=== PATIENT | female | born 1940 | race Caucasian/White ===

== ENCOUNTER 2016-08-23 17:59 | Emergency (ER) | payer MEDICARE, OTHER ==
[2016-08-23 18:06] VITALS: BP 158/97; PULSE 87; TEMP 98.1
--- NOTE | 2016-08-23 18:25 | PDOC ---
History of Present Illness - General Chief Complaint: Ear Problem Stated Complaint: EAR PROBLEM Time Seen by Provider: 08/23/16 18:15 History Source: Patient Exam Limitations: No Limitations - History of Present Illness Initial Comments: CHIEF COMPLAINT: 76 y/o afebrile female with PMH IDDM, HTN, HLD c/o sore throat and earache. HISTORY OF PRESENT ILLNESS: The patient states she's had a sore throat and dry cough for the past 4 days. Today, approximately 1 hour ago her eardrum "ruptured" and liquid and blood started coming out of her left ear. She denies fever, runny nose, n/v/d, CP, SOB, abd pain. She has been drinking lemon water and tea for her sore throat. Vital signs on arrival are within normal limits. REVIEW OF SYSTEMS: GENERAL/CONSTITUTIONAL: No fever/chills. No weakness. No weight change. HEAD, EYES, EARS, NOSE AND THROAT: No change in vision. +left ear pain with discharge. +sore throat MUSCULOSKELETAL: No joint or muscle swelling or pain. No neck or back pain. SKIN: No rash or easy bruising. NEUROLOGIC: No headache, vertigo, loss of consciousness, or loss of sensation. PHYSICAL EXAM: GENERAL: The patient is awake, alert, and fully oriented, in no acute distress. She is ambulatory with a cane, well appearing, in NAD or obvious discomfort. HEAD: Normal with no signs of trauma. No mastoid TTP b/l. ENT: Pupils equal, round and reactive to light, extraocular movements intact, sclera anicteric, conjunctiva clear. Mild posterior pharyngeal erythema without tonsilar edema or exudate. Uvula midline. No soft or hard palate deformities. Left TM is erythematous and perforated with minimal serosanguenous fluid in canal. Left canal normal. NEUROLOGICAL: Normal speech, normal gait. CN II-XII grossly intact. SKIN: Warm, dry, normal turgor, no rashes or lesions noted. Past History - Past Medical History Allergies/Adverse Reactions: Allergies Allergy/AdvReac Type Severity Reaction Status Date / Time No Known Allergies Allergy Verified 08/23/16 18:06 Home Medications: Ambulatory Orders Acetaminophen W/ Codeine #3 [Tylenol # 3] 1 combo PO Q4H PRN #14 tablet Aspirin [ASA -] 81 mg PO DAILY 10/30/11 Furosemide [Lasix -] 20 mg PO DAILY 10/30/11 Meloxicam [Mobic -] 7.5 mg PO PRN 10/30/11 Montelukast Na [Singulair] 10 mg PO DAILY 10/30/11 Rosuvastatin Calcium [Crestor] 10 mg PO DAILY 10/30/11 Albuterol Sulfate [Proair Hfa] 1 - 2 inh PO DAILY 12/12/11 Cholecalciferol (Vitamin D3) [Vitamin D] 5,000 unit PO DAILY 12/12/11 Ibuprofen/Diphenhydramine Cit [Advil Pm Caplet] 1 each PO PRN 12/12/11 Insulin Glargine,Hum.rec.anlog [Lantus] 10 unit SQ BID 12/12/11 Zolpidem Tartrate [Ambien] 10 mg PO HS 12/12/11 Cephalexin 250 mg PO ASDIR 08/23/16 Ofloxacin Otic [Floxin Otic -] 10 drop BID #280 drops 08/23/16 Diabetes: Yes (IDDM, 71 tonight -> po -> 111 here) HTN: Yes Hypercholesterolemia: Yes - Psycho/Social/Smoking Cessation Hx Anxiety: No Suicidal Ideation: No Smoking Status: No Smoking History: Never smoked Number of Cigarettes Smoked Daily: 0 Hx Alcohol Use: No Drug/Substance Use Hx: No Substance Use Type: None *Physical Exam - Vital Signs Last Vital Signs Temp Pulse Resp BP Pulse Ox 98.1 F 87 20 158/97 97 08/23/16 18:03 08/23/16 18:03 08/23/16 18:03 08/23/16 18:03 08/23/16 18:03 Medical Decision Making - Medical Decision Making A/P: 76 y/o female with left otitis media with perforation, along with sore throat. Plan is as follows: 1. Rapid strep Rapid strep - negative Will discharge to home with rx for ofloxacin ear drops. INstructed her to use as prescribed. INstructed her to gargle with warm salt water, take advil for pain and eat only cold/soft foods to help with sore throat. Instructed her to call Dr. Irby tomorrow to schedule a follow up appointment as soon as possible for her ear. Suggested she return to the ER immediately with any worsening or concerning symptoms. The patient verbalizes understanding of all instructions, has no further questions and is awaiting discharge. *DC/Admit/Observation/Transfer Diagnosis at time of Disposition: Sore throat Perforated eardrum Qualifiers: Laterality: left Qualified Code(s): H72.92 - Unspecified perforation of tympanic membrane, left ear - Discharge Dispostion Disposition: HOME Condition at time of disposition: Good - Prescriptions Prescriptions: Ofloxacin Otic [Floxin Otic -] 10 drop BID #280 drops - Referrals Referrals: Zaira Hernandez MD [Primary Care Provider] - James Irby MD [Staff Physician] - Call tomorrow - Patient Instructions Printed Discharge Instructions: DI for Tympanic Membrane Perforation-Adult, Sore Throat Additional Instructions: Discharge Instructions: -A prescription for antibiotic ear drops has been sent to your pharmacy; please take as prescribed -Gargle with warm salt water and take Advil for your sore throat. -Eat only soft and cold foods to help with your sore throat -Call Dr. Irby tomorrow to schedule an appointment for your ear -Return to the ER with any worsening or concerning symptoms Instrucciones de candy: -La receta para gotas para los odos de los antibiticos se coley enviado a major farmacia; Por favor tome linh prescrito -Gargar con agua tibia salada y sasha Advil para el dolor de garganta. - Coma slo comidas suaves y fras para ayudar con el dolor de garganta. - Llame al Dr. Irby para programar michle edi para major oreja -Vuelva a la brigida de emergencias con cualquier empeoramiento o sntomas relacionados Print Language: VIETNAMESE
== END 2016-08-23 19:29 | disposition home or self-care (01) ==
LOC: JERFT 17:59
DX: H72.92 Unspecified perforation of tympanic membrane, left ear (principal); I10 Essential (primary) hypertension; E11.9 Type 2 diabetes mellitus without complications; Z79.4 Long term (current) use of insulin; E78.00 Pure hypercholesterolemia, unspecified
CPT/HCPCS: 87070; 87430; 99281-25

== ENCOUNTER 2018-05-24 09:40 | Emergency (ER) | payer MEDICARE, OTHER ==
[2018-05-24 09:58] VITALS: BMI 25.7
--- NOTE | 2018-05-24 10:45 | PDOC ---
History of Present Illness - General Chief Complaint: Revisit, Lab Variance Stated Complaint: NOT FEELING WELL Time Seen by Provider: 05/24/18 10:25 History Source: Patient Exam Limitations: No Limitations, Language Barrier (phone rectification printer used) - History of Present Illness Initial Comments: 05/24/18 11:12 Patient is a 78F with history of DM, HTN, HLD, b/l DVT (on coumadin, last level 1 month ago) here today requesting INR level. Patient states that she hasn't had it done for the past month. Endorses minor pain in posterior legs bilaterally with increasing size of the left. Denies fevers, chills, nausea, vomiting. Denies chest pain, shortness of breath, abdominal pain. Endorses compliance with coumadin, but has other medications at bedside with no coumadin. Past History - Past Medical History Allergies/Adverse Reactions: Allergies Allergy/AdvReac Type Severity Reaction Status Date / Time No Known Allergies Allergy Verified 05/24/18 09:52 Home Medications: Ambulatory Orders Aspirin [ASA -] 81 mg PO DAILY 10/30/11 Montelukast Na [Singulair] 10 mg PO DAILY 10/30/11 Rosuvastatin Calcium [Crestor] 10 mg PO DAILY 10/30/11 Albuterol Sulfate [Proair Hfa] 1 - 2 inh PO DAILY 12/12/11 Insulin Glargine,Hum.rec.anlog [Lantus] 10 unit SQ BID 12/12/11 Ofloxacin Otic [Floxin Otic -] 10 drop BID #280 drops 08/23/16 Fluticasone Propionate [24 Hour Allergy] 1 inh NS DAILY 05/24/18 Losartan Potassium 50 mg PO DAILY 05/24/18 Metformin HCl [Glucophage] 1,000 mg PO BID 05/24/18 Warfarin Sodium [Coumadin] 7.5 mg PO HS 05/24/18 COPD: No Diabetes: Yes (IDDM, 71 tonight -> po -> 111 here) HTN: Yes Hypercholesterolemia: Yes - Immunization History Immunization Up to Date: Yes - Suicide/Smoking/Psychosocial Hx Smoking Status: No Smoking History: Never smoked Number of Cigarettes Smoked Daily: 0 Information on smoking cessation initiated: No Hx Alcohol Use: No Drug/Substance Use Hx: No Substance Use Type: None Review of Systems - Review of Systems Able to Perform ROS?: Yes Comments:: 05/24/18 11:22 GENERAL/CONSTITUTIONAL: No fever or chills. No weakness. HEAD, EYES, EARS, NOSE AND THROAT: No change in vision. No sore throat. CARDIOVASCULAR: No chest pain or shortness of breath RESPIRATORY: No cough, wheezing, or hemoptysis. GASTROINTESTINAL: No nausea, vomiting, diarrhea or constipation. GENITOURINARY: No dysuria, frequency, or change in urination. MUSCULOSKELETAL: +lower ext pain. No neck or back pain. SKIN: No rash NEUROLOGIC: No headache, vertigo, loss of consciousness, or change in strength/ sensation. ENDOCRINE: No increased thirst. No abnormal weight change HEMATOLOGIC/LYMPHATIC: No anemia, easy bleeding, or history of blood clots. ALLERGIC/IMMUNOLOGIC: No hives or skin allergy. *Physical Exam - Vital Signs Last Vital Signs Temp Pulse Resp BP Pulse Ox 97.9 F 75 17 140/75 97 05/24/18 09:52 05/24/18 09:52 05/24/18 09:52 05/24/18 09:52 05/24/18 10:18 - Physical Exam Comments: 05/24/18 11:29 GENERAL: Awake, alert, and fully oriented, in no acute distress HEAD: No signs of trauma, normocephalic, atraumatic EYES: PERRLA, EOMI, sclera anicteric, conjunctiva clear ENT: Auricles normal inspection, hearing grossly normal, nares patent, oropharynx clear without exudates. Moist mucosa NECK: Normal ROM, supple, no lymphadenopathy, JVD, or masses LUNGS: No distress, speaks full sentences, clear to auscultation bilaterally HEART: Regular rate and rhythm, normal S1 and S2, no murmurs, rubs or gallops, peripheral pulses normal and equal bilaterally. ABDOMEN: Soft, nontender, normoactive bowel sounds. No guarding, no rebound. No masses EXTREMITIES: B/L lower extremity swelling. No clubbing or cyanosis. NEUROLOGICAL: Cranial nerves II through XII grossly intact. Normal speech, normal gait, no focal sensorimotor deficits SKIN: Warm, Dry, normal turgor, no rashes or lesions noted. Moderate Sedation - Procedure Monitoring Vital Signs: Procedure Monitoring Vital Signs Temperature 97.9 F 05/24/18 09:52 Pulse Rate 75 05/24/18 09:52 Respiratory Rate 17 05/24/18 09:52 Blood Pressure 140/75 05/24/18 09:52 O2 Sat by Pulse Oximetry (%) 97 05/24/18 10:18 Medical Decision Making - Medical Decision Making 05/24/18 11:29 Patient is 78F with history of DVT (on coumadin, d/x 01/23/18) here today requesting INR level. Vitals normal and stable. INR ordered. INR shows no evidence of coumadin use. Will do US to confirm presence of DVT, likely start on DOAC. 05/24/18 13:48 US negative. Patient confirms she takes her coumadin every day. Dr Jensen office called, spoke with [employer] INTERN. Will see patient sunday. Since patient is unsure of what amount she is on, cannot change dose. Will discharge home, patient has follow up sunday. *DC/Admit/Observation/Transfer Diagnosis at time of Disposition: Leg swelling - Discharge Dispostion Disposition: HOME Condition at time of disposition: Good Decision to Admit order: No - Referrals Referrals: Gabrielle Jensen MD [Primary Care Provider] - - Patient Instructions Additional Instructions: Please follow up with your primary card doctor on Sunday as scheduled. Please return to the ED immediately if you have any new, worsening or concerning symptoms, especially chest pain, shortness of breath, and fever. Por favor talha un seguimiento con major mdico de la tarjeta primaria el segn lo programado. Regrese a la brigida de urgencias inmediatamente si tiene sntomas nuevos, que empeoran o estn relacionados con ellos, especialmente dolor en el pecho, falta de aliento y fiebre. - Post Discharge Activity
[2018-05-24 11:13] LABS: INR 0.97 (0.83-1.09); PROTHROMBIN TIME (PATIENT) 11.4 SEC (9.7-13.0)
--- NOTE | 2018-05-24 11:13 | PDOC ---
Attending Attestation - Resident Resident Name: ThaddeusperriSea - ED Attending Attestation I have performed the following: I have examined & evaluated the patient, The case was reviewed & discussed with the resident, I agree w/resident's findings & plan, Exceptions are as noted - HPI HPI: 05/24/18 11:10 78 F with h/o DM, HTN, HLD, BLE DVTs on coumadin, presenting to ED for INR check. Pt states that her last check was a month ago and was supratherapeutic. She states that over the past week, she has been having some mild bleeding when she brushes her teeth. Denies any bleeding currently. Denies bloody stool or dark tarry stool. no hematuria. Pt states that her swelling in her L leg has been persistent but not worsening. Denies CP/SOB. - Physicial Exam PE: 05/24/18 11:12 GENERAL: Awake, alert, and fully oriented, in no acute distress. HEAD: No signs of trauma EYES: PERRLA, EOMI, sclera anicteric, conjunctiva clear ENT: Auricles normal inspection, hearing grossly normal, nares patent, oropharynx clear without exudates. Moist mucosa NECK: Nontender, no stepoffs, Normal ROM, supple, no lymphadenopathy, JVD, or masses LUNGS: Breath sounds equal, clear to auscultation bilaterally. No wheezes, and no crackles HEART: Regular rate and rhythm, normal S1 and S2, no murmurs, rubs or gallops ABDOMEN: Soft, nontender, normoactive bowel sounds. No guarding, no rebound. No masses EXTREMITIES: + BLE edema, L>R NEUROLOGICAL: Cranial nerves II through XII intact. 5/5 strength and sensation in all extremities, Normal speech, normal gait, normal cerebellar function SKIN: Warm, Dry, normal turgor, no rashes or lesions noted. - Medical Decision Making 05/24/18 11:12 78 F with BLE DVTs on coumadin here for INR check. Endorses some bleeding gums with brushing teeth but no other bleeding. No clinical signs of active bleeding currently. HD stable. No signs of PE. - INR check 05/24/18 13:58 INR subtherapeutic However, repeat US today shows no evidence of DVT. Case discussed with pt's PMD, Dr. Jensen, who does not want pt's coumadin increased or any other AC started. She will f/u with pt on Sunday. Pt is well appearing, with normal vitals. Clinically stable for DC at this time. I discussed the physical exam findings, ancillary test results and final diagnoses with the patient. I answered all of the patient's questions. The patient was satisfied with the care received and felt comfortable with the discharge plan and treatment plan. The patient agrees to follow up with the primary care physician within 24-72 hours.
[2018-05-24 14:03] VITALS: BP 128/79; PULSE 78; TEMP 98.1
== END 2018-05-24 14:03 | disposition home or self-care (01) ==
LOC: JER 09:40
DX: M79.89 Other specified soft tissue disorders (principal); Z86.718 Personal history of other venous thrombosis and embolism; Z79.01 Long term (current) use of anticoagulants; I10 Essential (primary) hypertension; E78.00 Pure hypercholesterolemia, unspecified; E11.9 Type 2 diabetes mellitus without complications
CPT/HCPCS: 36415; 85610; 93970-TC; 99282-25

== ENCOUNTER 2018-09-14 21:35 | Emergency (ER) | payer MEDICARE, OTHER ==
[2018-09-14 21:45] VITALS: TEMP 97.7; BMI 27.6
[2018-09-14] MEDS ORDERED: ACETAMINOPHEN 500 MG TABLET (FP) PO ONE (22:16)
[2018-09-14] MEDS ORDERED: ACETAMINOPHEN 325 MG TABLET (FP) PO ONE (22:16)
[2018-09-14] MEDS ORDERED: ACETAMINOPHEN 325 MG TABLET (FP) ONE (22:24)
--- NOTE | 2018-09-14 22:31 | PDOC ---
History of Present Illness - General Chief Complaint: Pain, Acute Stated Complaint: FOOT PAIN Time Seen by Provider: 09/14/18 21:52 History Source: Patient Exam Limitations: No Limitations - History of Present Illness Initial Comments: 09/14/18 22:17 78YOF with h/o HTN, HLD, DM, CVA (residual right arm weakness), BLE DVTs (on coumadin), right ankle replacement, BLE neuropathy with decreased sensation, who presents 5 days s/p mechanical fall with worsening R>L ankle and foot pain. She notes having caught her left foot on an irregular edge and tripped, twisted her left ankle, and rolled her right ankle. She notes worsening pain especially to the right foot and ankle which has caused her to have more difficulty walking than normal. She usually uses a cane to ambulate. Past History - Past Medical History Allergies/Adverse Reactions: Allergies Allergy/AdvReac Type Severity Reaction Status Date / Time shellfish derived Allergy Verified 09/14/18 22:29 Shellfish Allergy Uncoded 08/26/18 11:57 Home Medications: Ambulatory Orders Aspirin [ASA -] 81 mg PO DAILY 10/30/11 Montelukast Na [Singulair] 10 mg PO DAILY 10/30/11 Rosuvastatin Calcium [Crestor] 10 mg PO DAILY 10/30/11 Albuterol Sulfate [Proair Hfa] 1 - 2 inh PO DAILY 12/12/11 Insulin Glargine,Hum.rec.anlog [Lantus] 10 unit SQ BID 12/12/11 Ofloxacin Otic [Floxin Otic -] 10 drop BID #280 drops 08/23/16 Fluticasone Propionate [24 Hour Allergy] 1 inh NS DAILY 05/24/18 Losartan Potassium 50 mg PO DAILY 05/24/18 Metformin HCl [Glucophage] 1,000 mg PO BID 05/24/18 Warfarin Sodium [Coumadin] 7.5 mg PO HS 05/24/18 CVA: Yes (May 2018) COPD: No Diabetes: Yes (IDDM, 71 tonight -> po -> 111 here) HTN: Yes Hypercholesterolemia: Yes - Immunization History Immunization Up to Date: Yes - Suicide/Smoking/Psychosocial Hx Smoking Status: No Smoking History: Unknown if ever smoked Number of Cigarettes Smoked Daily: 0 Information on smoking cessation initiated: No Hx Alcohol Use: No Drug/Substance Use Hx: No Substance Use Type: None Review of Systems - Review of Systems Able to Perform ROS?: Yes Comments:: 09/14/18 23:07 GEN: no fever, chills, malaise, generalized weakness, or weight change HEENT: no ear pain, sore throat, vision change, or eye pain CV: no chest pain, palpitations, lightheadedness, syncope, or edema RESP: no cough, wheezing, or SOB GI: no abdominal pain, nausea, vomiting, diarrhea, constipation, or white/black/ bloody stool : no dysuria, hematuria, incontinence, retention, bleeding, or discharge MSK: ankle pain/swelling/bruising, knee pain NEURO: no headache, seizure, vertigo, numbness, tingling, or focal weakness PSYCH: no substance use, no behavior change SKIN: no jaundice, no rash ROS otherwise negative except as noted in HPI *Physical Exam - Vital Signs Last Vital Signs Temp Pulse Resp BP Pulse Ox 97.7 F 60 20 130/58 L 95 09/14/18 21:41 09/14/18 21:41 09/14/18 21:41 09/14/18 21:41 09/14/18 21:41 - Physical Exam Comments: 09/14/18 23:08 GENERAL: nontoxic and well-appearing, pleasant and very talkative elderly Iranian-speaking female, A/Ox4, no distress at rest when sitting, answers questions appropriately HEENT: PERRLA, EOMI, moist mucous membranes NECK/BACK: no midline ttp, no spinal stepoff or deformity, no hematoma, full ROM , neck supple CARDIOVASCULAR: regular rate/rhythm, normal S1S2, no MGR, strong peripheral pulses, capillary refill <2 seconds, extremities wwp, no edema LUNGS/RESPIRATORY: no respiratory distress, CTAB GI/ABDOMEN: symmetric hugi-ox-ruoy, normoactive BS, soft, no ttp, no midline pulsatile masses : no CVA tenderness EXTREMITIES: initially right ankle wrapped in coban with ice pack, BLE 1+ pitting edema, right foot ecchymosis to dorsum of foot just proximal to 3rd and 4th digits, significant diffuse ttp to right foot and ankle with tenderness to compression of tib/fib, no ttp malleolar zone, no midfoot tenderness, no muscle atrophy, no acute deformity SKIN: warm and dry, no pallor, no jaundice, no rash, no bruising, no skin breakdown, no cuts, no lesions NEUROLOGICAL: GCS 15, CN II-XII grossly intact, 5/5 strength proximally and distally, no facial droop ED Treatment Course - RADIOLOGY Radiology Studies Ordered: Category Date Time Status ANKLE & FOOT-LEFT* [RAD] Stat Radiology 09/14/18 22:15 Ordered ANKLE & FOOT-RIGHT* [RAD] Stat Radiology 09/14/18 22:15 Ordered KNEE 3 POS-RIGHT [RAD] Stat Radiology 09/14/18 22:15 Ordered Medical Decision Making - Medical Decision Making 09/14/18 23:11 [id number] with prior right knee replacement p/w ankle pain/swelling worsening since an injury to the area from GLF 5 days ago. Initial Vital Signs Temp Pulse Resp BP Pulse Ox 97.7 F 60 20 130/58 L 95 09/14/18 21:41 09/14/18 21:41 09/14/18 21:41 09/14/18 21:41 09/14/18 21:41 Exam: ankle with significant swelling, pain in malleolar zone, tenderness edge of lateral and medial malleolus, inability to walk 4 steps for exam. DDX IBNLT: ankle sprain/strain, tendon or ligament rupture/tear, fracture, dislocation, contusion, blood vessel injury, nerve injury, etc. W/U ordered: ankle/foot XR BLE, right knee XR TX ordered: Tylenol Ankle/Foot/knee XR: STS but no obvious fracture or dislocation, otherwise nothing acute. DISCHARGE Patient placed in air splint on right ankle. Subsequently neurovascularly intact distally, good capillary refill. They are also instructed to use RICE therapy and OTC analgesics. Workup is not concerning for emergency-level pathology at this time. The Pt is appropriate for discharge with close outpatient follow up. They are comfortable with this plan and will follow up with their primary care provider in 1-3 days. Specific return precautions are discussed and they will come back to the ER if necessary. *DC/Admit/Observation/Transfer Diagnosis at time of Disposition: Fall from ground level Ankle injury Qualifiers: Encounter type: initial encounter Laterality: right Qualified Code(s): S99.911A - Unspecified injury of right ankle, initial encounter - Discharge Dispostion Disposition: HOME Condition at time of disposition: Stable Decision to Admit order: No - Referrals - Patient Instructions Printed Discharge Instructions: DI for Ankle Sprain Additional Instructions: You were seen in the ER for an ankle injury. We did an exam and x-rays, which showed no new concerning findings. We placed your foot and ankle in a splint which you can wear for comfort as you need it. You can bear weight on the ankle/ foot as tolerated (as your pain allows) and you can use your cane if needed. After our assessment, we do not believe you are having a medical emergency at this time, and we believe you are safe to go home. Use rice therapy (rest, ice, compression, elevation) and take Tylenol for the pain (1000 mg maximum, every 6 hours). We are giving you referral information for our orthopedist, so if you have continued symptoms in 1-2 weeks, please feel free to follow up with them. Please also follow up with your primary care provider in 1-3 days. Call their clinic as soon as possible, tell them you were seen in the er, and tell them you need an appointment. If you have any new or worsening symptoms, especially worsening or severe pain of the ankle/foot/toes, or numbness, tingling, weakness , redness, or paleness of the area, please come back to the ER at any time (24 hours a day). If you are having severe or life threatening symptoms, or symptoms that make it unsafe to drive or have someone drive you, please call 911. Te vieron en la brigida de emergencias por michel lesin en el tobillo. Hicimos un examen y radiografas, que no mostraron nuevos hallazgos concernientes. Colocamos el pie y el tobillo en michel frula que puede usar para major comodidad cuando la necesite. Puede soportar peso en el tobillo / pie segn lo tolere ( segn lo permita major dolor) y puede usar major bastn si es necesario. Despus de nuestra evaluacin, no creemos que tenga michel emergencia mdica en arsen momento, y creemos que puede irse a casa sin peligro. Use la terapia de arroz (reposo, hielo, compresin, elevacin) y tome Tylenol para el dolor (1000 mg mximo, cada 6 horas). Le estamos dando informacin de referencia para nuestro ortopedista, por lo que si contina con los sntomas en 1 o 2 semanas, sintase kalpesh de seguir con ellos. Por favor, ghulam talha un seguimiento con major proveedor de atencin primaria en 1-3 dowling. Llame a major clnica lo antes posible , dgales que lo vieron en la brigida de emergencias y que necesita michel edi. Si tiene algn sntoma nuevo o que empeora, especialmente empeoramiento o dolor ashlee del tobillo / pie / dedos, o entumecimiento, hormigueo, debilidad, enrojecimiento o palidez en el [place], por favor regrese a la brigida de emergencias en cualquier momento (24 horas a da). Si tiene sntomas graves o potencialmente mortales, o sntomas que hacen que no sea seguro conducir o que alguien lo lleve, llame al 911. - Post Discharge Activity
[2018-09-14] MEDS ORDERED: SODIUM CHLORIDE 0.9% 500 ML INFUS.BAG IV ONE (22:34)
[2018-09-15 00:05] VITALS: BP 135/63; PULSE 64
== END 2018-09-15 00:05 | disposition home or self-care (01) ==
LOC: JER 21:35
DX: S99.811A Other specified injuries of right ankle, initial encounter (principal); I10 Essential (primary) hypertension; E78.5 Hyperlipidemia, unspecified; E11.9 Type 2 diabetes mellitus without complications; Z79.4 Long term (current) use of insulin; Z96.651 Presence of right artificial knee joint; I69.831 Monoplegia of upper limb following other cerebrovascular disease affecting right dominant side; Z87.898 Personal history of other specified conditions; Z86.718 Personal history of other venous thrombosis and embolism; Z79.01 Long term (current) use of anticoagulants
CPT/HCPCS: 73562-TC-RT-FY; 73610-TC-LT-FY; 73610-TC-RT-FY; 73630-TC-LT; 73630-TC-RT-FY; 99282-25

== ENCOUNTER 2019-03-04 13:40 | Inpatient (IN) | payer MEDICARE, OTHER ==
--- NOTE | 2019-03-04 14:32 | PDOC ---
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 Initially, reported the symptoms started three days ago after receiving a Toradol shot for a headache at her PCPs office. Then clarified that she had experienced similar symptoms chronically since her stroke in May. Her neurologist has not been able to control the symptoms. The pt then reports she developed right sided anterior chest wall pain when she arrived at the hospital. It is worse when she touches the area. Does not change with movement of the right arm. Denies trauma to the area. Pt has a h/o diabetes managed with Levemir and Metformin. Has not taken the insulin in the past three days because her doctor did not tell her to continue using it after the office visit. Medical Hx: - HTN - HLD - DM - CVA (residual right arm weakness) - BLE DVTs (on Eliquis) - S/p R ankle replacement - BLE neuropathy with decreased sensation Review of Systems: In addition to that documented in the HPI above, the additional ROS was obtained : Constitutional- Denies fevers or chills Head- Denies vision changes ENMT- Denies sore throat CV- Per HPI Resp- Denies SOB GI- Denies abdominal pain, vomiting, or diarrhea - Denies painful urination, increased urinary frequency, or hematuria MSK- Denies recent trauma Skin- Denies new rashes Neuro- Denies new numbness or tingling or weakness Endocrine- Denies polyuria Heme- Denies bleeding or bruising Physical Examination: Vital signs and nursing notes reviewed. Constitutional- Well-developed, well-nourished adult female in no acute distress or obvious discomfort. Initially found standing in the hospital hallway. Ambulated to stretcher with aide of her home cane. Head- Normocephalic. No obvious external signs of trauma. Cardiovascular / Chest- Regular rate and regular rhythm. No murmur, rubs, clicks , or gallops. Peripheral pulses- radial pulses full. Trace pretibial edema bilaterally. Point tenderness to right anterior chest wall - no overlying bruising, no obvious bony deformity, no change with abduction of right arm. Respiratory- Breathing unlabored. Speaking in multi-word responses without pausing. Equal chest rise and fall. Clear to auscultation bilaterally. No stridor, no wheezing, no rhonchi. Gastrointestinal- abdomen is soft, non-tender, non-distended. Neuro- Alert and oriented x4. Moving all four extremities spontaneously. Left hand episodically tremulous, unclear if the pt is voluntarily moving the arm secondary to pain or the movements are involuntarily. Skin- Warm, dry, and intact. Psych- Affect- appropriate. Mood- normal. Speech was non-labored, non- pressured. MDM: *Reviewed nursing notes and and prior visit documentation (if available). 78 y/o female presenting with chronic left arm pain and tremors and reproducible , non-radiating right sided anterior chest wall pain. Afebrile. Vitals unremarkable for hypotension or tachycardia. Physical exam as described above. EKG unremarkable for ischemic findings. Troponin not elevated. Low suspicion for ACS, but will obtain repeat EKG and troponin to trend. CMP revealed Hyperglycemia with elevated beta-hydroxybutyrate without acidosis. Suspect secondary to several days of insulin non-adherence. Received SQ dose of regular insulin. Ordered IVFB and repeat insulin dose to be given with dinner. 04 Mar 2019 19:16 PM Telephone discussion with resident Dr. Kwan. Verbally appraised of the pts HPI, ED course, and current plan of management. Pt to be admitted to telemetry for attending Dr. Bae. Repeat EKG and troponin pending. Clay Hartley M.D., PGY2 Emergency Medicine Resident Past History - Past Medical History Allergies/Adverse Reactions: Allergies Allergy/AdvReac Type Severity Reaction Status Date / Time shellfish derived Allergy Verified 03/04/19 13:45 Shellfish Allergy Uncoded 03/04/19 13:45 Home Medications: Ambulatory Orders Aspirin [ASA -] 81 mg PO DAILY 10/30/11 Montelukast Na [Singulair] 10 mg PO DAILY 10/30/11 Rosuvastatin Calcium [Crestor] 10 mg PO DAILY 10/30/11 Albuterol Sulfate [Proair Hfa] 1 - 2 inh PO DAILY 12/12/11 Insulin Glargine,Hum.rec.anlog [Lantus] 10 unit SQ BID 12/12/11 Ofloxacin Otic [Floxin Otic -] 10 drop BID #280 drops 08/23/16 Fluticasone Propionate [24 Hour Allergy] 1 inh NS DAILY 05/24/18 Losartan Potassium 50 mg PO DAILY 05/24/18 Metformin HCl [Glucophage] 1,000 mg PO BID 05/24/18 Warfarin Sodium [Coumadin] 7.5 mg PO HS 05/24/18 CVA: Yes (May 2018) COPD: No Diabetes: Yes (IDDM, 71 tonight -> po -> 111 here) HTN: Yes Hypercholesterolemia: Yes - Immunization History Immunization Up to Date: Yes - Psycho Social/Smoking Cessation Hx Smoking Status: No Smoking History: Never smoked Have you smoked in the past 12 months: No Number of Cigarettes Smoked Daily: 0 Hx Alcohol Use: No Drug/Substance Use Hx: No Substance Use Type: None *Physical Exam - Vital Signs Last Vital Signs Temp Pulse Resp BP Pulse Ox 98.6 F 68 16 120/58 L 99 03/04/19 13:46 03/04/19 13:46 03/04/19 13:46 03/04/19 13:46 03/04/19 13:46 ED Treatment Course - LABORATORY CBC & Chemistry Diagram: 03/04/19 14:24 03/04/19 14:24 - RADIOLOGY Radiology Studies Ordered: Category Date Time Status CHEST PA & LAT [RAD] Stat Radiology 03/04/19 14:19 Ordered Discharge - Discharge Information Problems reviewed: Yes Clinical Impression/Diagnosis: Hyperglycemia, Elevated beta-hydroxybutyrate, Right-sided chest pain Condition: Stable - Admission Yes - Follow up/Referral - Patient Discharge Instructions - Post Discharge Activity
[2019-03-04 14:42] LABS: BASO % 0.8 % (0-2.0); EOS % 1.1 % (0-4.5); HEMATOCRIT 38.3 % (32.4-45.2); HEMOGLOBIN 12.6 GM/dL (10.7-15.3); MCHC 32.9 g/dl (32.0-36.0); MEAN CELL VOLUME 91.1 fl (80-96); MEAN PLT VOLUME 10.3 fl (7.5-11.1); MONO % 7.7 % (3.8-10.2); NEUT % 64.4 % (42.8-82.8); PLATELET COUNT 173 K/MM3 (134-434); RBC 4.21 M/mm3 (3.60-5.2); RDW 13.2 % (11.6-15.6); WHITE BLOOD COUNT 4.5 K/mm3 (4.0-10.0)
[2019-03-04 14:54] LABS: INR 0.92 (0.83-1.09); PROTHROMBIN TIME (PATIENT) 10.9 SEC (9.7-13.0)
[2019-03-04 15:29] LABS: ALBUMIN 3.9 g/dl (3.4-5.0); ALK PHOS 80 U/L (45-117); ANION GAP 9 MMOL/L (8-16); BILIRUBIN,TOTAL 0.3 mg/dL (0.2-1); CALCIUM 9.8 mg/dL (8.5-10.1); CHLORIDE 95 mmol/L (98-107); CO2 27 mmol/L (21-32); CREATININE 1.4 mg/dL (0.55-1.3); MAGNESIUM 2.2 mg/dL (1.8-2.4); PHOSPHOROUS 4.2 mg/dL (2.5-4.9); POTASSIUM 5.1 mmol/L (3.5-5.1); SGOT/AST 12 U/L (15-37); SGPT/ALT 23 U/L (13-61); SODIUM 131 mmol/L (136-145); TOT PROT 6.9 g/dl (6.4-8.2)
[2019-03-04 15:44] LABS: GLUCOSE,RANDOM 538 mg/dL (74-106)
--- NOTE | 2019-03-04 15:45 | PDOC ---
Attending Attestation - Resident Resident Name: HartleyClay - ED Attending Attestation I have performed the following: I have examined & evaluated the patient, The case was reviewed & discussed with the resident, I agree w/resident's findings & plan - HPI HPI: 03/04/19 15:50 78YOF with h/o HTN, HLD, DM, CVA (residual right arm weakness), BLE DVTs (on eliquis), right ankle replacement, BLE neuropathy with decreased sensation presenting with left arm pain, tremors x several days, right chest pain. Initially, reported the symptoms started three days ago after receiving a Toradol shot for a headache at her PCPs office. Then clarified that she had experienced similar symptoms chronically since her stroke in May. Her neurologist has not been able to control the symptoms. The pt then reports she developed right sided anterior chest wall pain when she arrived at the hospital. It is worse when she touches the area. Does not change with movement of the right arm. Denies trauma to the area. Pt has a h/o diabetes managed with Levemir and Metformin. Has not taken the insulin in the past three days because her doctor did not tell her to continue using it after the office visit. 03/04/19 18:49 - Physicial Exam PE: 03/04/19 15:45 Agree with the resident's HPI and PE as documented in the electronic medical record. NAD, well appearing, EOMI, PERRL, nl conjunctiva, anicteric; neck supple. lungs clear, RRR, no murmur, +right chest wall TTP, abdomen soft nontender. no rebound, guarding. Back nontender. LOUIS x4, FROM, no focal neuro deficits. speech clear. No peripheral edema. normal color for ethnicity, WWP. no calf tenderness. 03/04/19 16:43 03/04/19 18:49 - Medical Decision Making 03/04/19 15:45 Vital Signs Temp Pulse Resp BP Pulse Ox 98.6 F 68 16 120/58 L 99 03/04/19 13:46 03/04/19 13:46 03/04/19 13:46 03/04/19 13:46 03/04/19 13:46 Vital signs reviewed within normal limits differential diagnosis includes ACS, arrhythmia, anemia, electrolyte/metabolic derangements, HHS, DKA, poor diabetic control, MSK pain Laboratory results with normal CBC, creatinine at baseline at 1.4, troponin negative, EKG is sinus rhythm and unremarkable, also atypical chest pain on the right side and reproducible. Initial glucose elevated greater than 500 with elevated beta hydroxybutyrate. However there is no evidence of gap acidosis at this time, this could be early process with her poorly controlled diabetes and has not been taking her insulin for 3 days. We will give subQ injection x1 dose now, IV fluid hydration and admit for hyperglycemia with evidence of early/ mild ketosis, needs diabetic teaching as pt not compliant and presenting with hyperglycemia/ketosis. 03/04/19 18:51 Heart Score/ECG Review #1 ECG reviewed & interpreted by me at: 13:55 General ECG Interpretation: Sinus Rhythm, Normal Rate, Normal Intervals Compared to previous ECG there are: No significant change 03/04/19 15:48 EKG normal sinus rhythm 67 bpm, no interval abnormalities, narrow QRS, ST and T wave segments and morphology normal. Nonspecific T wave abnormalities
[2019-03-04] MEDS ORDERED: INSULIN REGULAR HUMAN 100 UNITS/ML *VIAL IVPUSH ONE (15:51)
[2019-03-04] MEDS ORDERED: LACTATED RINGERS SOLUTION 1000 ML INFUS.BAG IV ONE (16:43)
[2019-03-04] MEDS ORDERED: ACETAMINOPHEN 325 MG TABLET (FP) PO ONE (17:53)
[2019-03-04] MEDS ORDERED: INSULIN (NOVOLOG) ASPART 100 UNITS/ML 10ML VIAL SQ ONE (17:55)
--- NOTE | 2019-03-04 20:42 | HP ---
CHIEF COMPLAINT: tremor/tingling and headache PCP: Dr Sparks HISTORY OF PRESENT ILLNESS: 78 yo honduran speaking and poor history female with a history of HTN, HLD, uncontrolled DM with peripheral neuropathy, CVA with residual left sided weakness, bilateral LE DVT (on eliquis), and seizures presenting to the ED complaining of left UE tingling and tremors, headache starting " 3 days ago". Initially, reported the symptoms started three days ago after receiving a Toradol shot for a headache at her PCPs office. Then clarified that she had experienced similar symptoms chronically since her stroke in May. According to her daughter, her neurologist has not been able to control the symptoms nor has been able to offer an explanation for her symptoms. On arrival to the ED, pt also complained of right sided chest pain that is non radiating, reproducible and not associated with SOB or exertion. Patient endorses recent fevers that started with her headache, confusion and states she has new onset hand clumsiness. denied any fever, chills, SOB, or urinary symptoms. According to the daughter, since early may, pt has been having memory problem , unable to dress or perform some of her daily activities. At the time, Pt was taken to [facility] in [place] where she was told to have seizures and place on keppra. They also performed an MRI at the time with suspicious finding of swelling. An LP was done at some point later which was negative. Per daughter, pt has not been taking her medications specifically at night and has been non adherent for a long time. She has not taken the insulin in the past three days because her doctor did not tell her to continue using it after the office visit. An Aid assigned only for 4 hours a day 7d/wk is able to give her her morning regimen only. Daughter has been to court in order to get an aid for more house but has been denied. She had previously discussed with her mother about assisted living or snf but pt has declined on multiple occasion. HEAVY DRINKER IN THE PAST ER course was notable for: (1) CBC unremarkable, CMP with pseudohyponatremia, cr 1.4 ( 1.1 in 2011), BG 538 and down to 382 from ED intervention with novolin, trops neg x2 (2) PT 10.9, INR 0.92 (3)1L LR bolus, tylenol, CXR no acute pathology Recent Travel: none PAST MEDICAL HISTORY: as described above PAST SURGICAL HISTORY: knee replacement Social History: per daughter Smoking: none smoker Alcohol: prior history of heavy drinking. per daughter she continues to drink but not as heavy as before. Drugs: Allergies shellfish derived Allergy (Verified 03/04/19 13:45) Shellfish Allergy (Uncoded 03/04/19 13:45) HOME MEDICATIONS: Home Medications Medication Instructions Recorded Aspirin [ASA -] 81 mg PO DAILY 10/30/11 Montelukast Na [Singulair] 10 mg PO DAILY 10/30/11 Rosuvastatin Calcium [Crestor] 10 mg PO DAILY 10/30/11 Albuterol Sulfate [Proair Hfa] 1 - 2 inh PO DAILY 12/12/11 Insulin Glargine,Hum.rec.anlog 10 unit SQ BID 12/12/11 [Lantus] Ofloxacin Otic [Floxin Otic -] 10 drop BID #280 drops 08/23/16 Fluticasone Propionate [24 Hour 1 inh NS DAILY 05/24/18 Allergy] Losartan Potassium 50 mg PO DAILY 05/24/18 Metformin HCl [Glucophage] 1,000 mg PO BID 05/24/18 Warfarin Sodium [Coumadin] 7.5 mg PO HS 05/24/18 Apixaban [Eliquis] 03/04/19 REVIEW OF SYSTEMS CONSTITUTIONAL: subjective fever Absent: chills, diaphoresis, generalized weakness, malaise, loss of appetite, weight change HEENT: Absent: rhinorrhea, nasal congestion, throat pain, throat swelling, difficulty swallowing, mouth swelling, ear pain, eye pain, visual changes CARDIOVASCULAR: chest pain Absent: syncope, palpitations, irregular heart rate, lightheadedness, peripheral edema RESPIRATORY: Absent: cough, shortness of breath, dyspnea with exertion, orthopnea, wheezing, stridor, hemoptysis GASTROINTESTINAL: Absent: abdominal pain, abdominal distension, nausea, vomiting, diarrhea, constipation, melena, hematochezia GENITOURINARY: Absent: dysuria, frequency, urgency, hesitancy, hematuria, flank pain, genital pain MUSCULOSKELETAL: Absent: myalgia, arthralgia, joint swelling, back pain, neck pain SKIN: Absent: rash, itching, pallor HEMATOLOGIC/IMMUNOLOGIC: Absent: easy bleeding, easy bruising, lymphadenopathy, frequent infections ENDOCRINE: Absent: unexplained weight gain, unexplained weight loss, heat intolerance, cold intolerance NEUROLOGIC: Absent: headache, focal weakness or paresthesias, dizziness, unsteady gait, seizure, mental status changes, bladder or bowel incontinence PSYCHIATRIC: Absent: anxiety, depression, suicidal or homicidal ideation, hallucinations. PHYSICAL EXAMINATION Vital Signs - 24 hr 03/04/19 03/04/19 03/04/19 13:45 13:46 19:57 Temperature 98.6 F 98.6 F Pulse Rate 68 Pulse Rate [ 85 Apical] Respiratory 16 20 Rate Blood Pressure 120/58 L Blood Pressure 133/79 [Left Arm] O2 Sat by Pulse 98 99 99 Oximetry (%) GENERAL: Awake, alert, and AOx2, anxious HEAD: Normal with no signs of trauma. EYES: Pupils equal, round and reactive to light, extraocular movements intact, sclera anicteric, conjunctiva clear. No lid lag. EARS, NOSE, THROAT: oropharynx clear without exudates. Moist mucous membranes. NECK: Normal range of motion, supple without JVD, or masses. LUNGS: Breath sounds equal, clear to auscultation bilaterally. No wheezes, and no crackles. No accessory muscle use. HEART: Regular rate and rhythm, normal S1 and S2 without murmur, rub or gallop. ABDOMEN: Soft, nontender, not distended, normoactive bowel sounds, no guarding, no rebound, no masses. No hepatomegaly or splenomegaly. MUSCULOSKELETAL: Normal range of motion at all joints. No bony deformities or tenderness. No CVA tenderness. UPPER EXTREMITIES: 2+ pulses, warm, well-perfused. No cyanosis. No clubbing. No peripheral edema. LOWER EXTREMITIES: 2+ pulses, warm, well-perfused. No calf tenderness. 1+ edema NEUROLOGICAL: Cranial nerves II-XII intact. Normal speech. Normal gait. normal sensation globally, 5/5 strength globally except for LUE which was 3/5. PSYCHIATRIC: Cooperative. Good eye contact. Appropriate mood and affect. SKIN: Warm, dry, normal turgor, no rashes or lesions noted, normal capillary refill. Laboratory Results - last 24 hr 03/04/19 03/04/19 03/04/19 14:24 14:24 14:24 WBC 4.5 RBC 4.21 Hgb 12.6 Hct 38.3 MCV 91.1 MCH 30.0 MCHC 32.9 RDW 13.2 Plt Count 173 MPV 10.3 D Absolute Neuts (auto) 2.9 Neutrophils % 64.4 Lymphocytes % 26.0 Monocytes % 7.7 Eosinophils % 1.1 Basophils % 0.8 Nucleated RBC % 0 PT with INR 10.90 INR 0.92 Sodium 131 L Potassium 5.1 Chloride 95 L Carbon Dioxide 27 Anion Gap 9 BUN 27.0 H Creatinine 1.4 H Est GFR (CKD-EPI)AfAm 42.19 Est GFR (CKD-EPI)NonAf 36.41 POC Glucometer Random Glucose 538 H* Calcium 9.8 Phosphorus 4.2 Magnesium 2.2 Total Bilirubin 0.3 AST 12 L ALT 23 Alkaline Phosphatase 80 Creatine Kinase 58 Troponin I < 0.02 Total Protein 6.9 Albumin 3.9 Beta-Hydroxybutyrate 11.8 H 03/04/19 03/04/19 17:37 19:13 WBC RBC Hgb Hct MCV MCH MCHC RDW Plt Count MPV Absolute Neuts (auto) Neutrophils % Lymphocytes % Monocytes % Eosinophils % Basophils % Nucleated RBC % PT with INR INR Sodium Potassium Chloride Carbon Dioxide Anion Gap BUN Creatinine Est GFR (CKD-EPI)AfAm Est GFR (CKD-EPI)NonAf POC Glucometer 382 Random Glucose Calcium Phosphorus Magnesium Total Bilirubin AST ALT Alkaline Phosphatase Creatine Kinase Troponin I < 0.02 Total Protein Albumin Beta-Hydroxybutyrate ASSESSMENT/PLAN: 78 yo honduran speaking and poor history female with a history of HTN, HLD, uncontrolled DM with peripheral neuropathy, CVA with residual left sided weakness, bilateral LE DVT (on eliquis), and seizures presenting to the ED complaining of left UE tingling and tremors, headache starting " 3 days ago" and new onset r sided chest pain admitted for uncontrolled diabetes Uncontrolled diabetes 2/2 non adherance to medications no dka no Anion Gap BG on admission 538 now 382 then to 253 BGM ISS starting with levemir 5u daily A1c ordered VINNY inhibitor for renal protection CHRISTOPH cr 1.4 most likely due to fluid loss from high BG. most likely prerenal cont NS @83 cc/hr Avoid nephrotoxins I's and O's and daily weights LUE tingling with tremors and headache head CT done with no acute finding but with evidence of slight ventricular dilation and brain involutional changes noted PT ordered Fall precautions and bedrest Chest pain unlikely cardiac as it is reproducible and right sided trop neg x2 ekg NSR at [address] changes HTN resume home meds once med rec Seizure disorder cont keppra 500 BID History of DVT cont eliquis 2.5 once med rec PT/INR 10.9 / 0.92 social work for living assistance dispo-med surge Visit type - Emergency Visit Emergency Visit: Yes ED Registration Date: 03/04/19 Care time: The patient presented to the Emergency Department on the above date and was hospitalized for further evaluation of their emergent condition. - New Patient This patient is new to me today: Yes Date on this admission: 03/05/19 - Critical Care Critical Care patient: No ATTENDING PHYSICIAN STATEMENT I saw and evaluated the patient. I reviewed the resident's note and discussed the case with the resident. I agree with the resident's findings and plan as documented. SUBJECTIVE: OBJECTIVE: ASSESSMENT AND PLAN:
--- NOTE | 2019-03-04 22:05 | PN ---
Teaching Attending Note Name of Resident: Sujey Kwan ATTENDING PHYSICIAN STATEMENT I saw and evaluated the patient. I reviewed the resident's note and discussed the case with the resident. I agree with the resident's findings and plan as documented. SUBJECTIVE: 8YOF with h/o HTN, HLD, DM, CVA (residual right arm weakness), BLE DVTs (on eliquis), Seizure disorder on Keppra, right ankle replacement, BLE neuropathy with decreased sensation presenting with left arm pain, tremors x several days, right chest pain, Found to have severe hyperglycemia in the emergency room. Pt has a h/o diabetes managed with Levemir and Metformin. Has not taken the insulin in the past three days because her doctor did not tell her to continue using it after the office visit. OBJECTIVE: Last Vital Signs Temp Pulse Resp BP Pulse Ox 98.1 F 81 20 136/85 99 03/05/19 00:01 03/05/19 00:01 03/05/19 00:01 03/05/19 00:01 03/04/19 19:57 GENERAL: Well developed, well nourished. Awake and alert. No acute distress. HEENT: Normocephalic, atraumatic. PERRLA, EOMI. No conjunctival pallor. Sclera are non- icteric. Moist mucous membranes. Oropharynx is clear. NECK: Supple. Full ROM. No JVD. Carotid pulses 2+ and symmetric, without bruits. No thyromegaly. No lymphadenopathy. CARDIOVASCULAR: Regular rate and rhythm. No murmurs, rubs, or gallops. Distal pulses are 2+ and symmetric. PULMONARY: No evidence of respiratory distress. Lungs clear to auscultation bilaterally. No wheezing, rales or rhonchi. ABDOMINAL: Soft. Non-tender. Non-distended. No rebound or guarding. No organomegaly. Normoactive bowel sounds. MUSCULOSKELETAL Normal range of motion at all joints. No bony deformities or tenderness. No CVA tenderness. EXTREMITIES: No cyanosis. No clubbing. No edema. No calf tenderness. SKIN: Warm and dry. Normal capillary refill. No rashes. No jaundice. PSYCHIATRIC: Cooperative. Good eye contact. Appropriate mood and affect. Abnormal Lab Results 03/04/19 03/04/19 14:24 22:35 Sodium 131 L Chloride 95 L BUN 27.0 H Creatinine 1.4 H Random Glucose 538 H* AST 12 L Beta-Hydroxybutyrate 11.8 H Urine Glucose (UA) 3+ H Imaging studies reviewed Imaging studies were reviewed Head CT negative for any acute intracranial pathology Chest x-ray was clear ASSESSMENT AND PLAN: 78-year-old woman with severe hyperglycemia, likely secondary to medication noncompliance with no anion gap and do not suspect DKA at this time although beta hydroxybutyrate was significantly elevated. Patient was complaining of some right-sided chest pain upon initial presentation however she had 2- troponins in the emergency room so ACS is ruled out at this time.Pseudohyponatremia likely secondary to severe hyperglycemia, CHRISTOPH, suspect prerenal azotemia. [facility] as patient is fluid depleted intravascularly and has an CHRISTOPH Tight NovoLog sliding scale A1c Diabetic diet Basal insulin Aspirin Statin VINNY inhibitor for renal protection Fall precautions and bedrest Physical therapy evaluation Avoid nephrotoxins I's and O's and daily weights #History of bilateral DVTs Continue with home dose Eliquis #Seizure disorder Continue with home dose Keppra
[2019-03-04] MEDS: INSULIN SLIDING SCALE (NOVOLOG) 1 VIAL SQ SCH (22:13)
[2019-03-04 22:48] LABS: EPI CELLS 1.3 /HPF (0-5/HPF); HYALINE CASTS 1 /lpf (0-8); URINE APPEARANCE CLEAR; URINE BACTERIA 9.5 /hpf (NEGATIVE); URINE BILIRUBIN NEGATIVE (NEGATIVE); URINE COLOR YELLOW; URINE GLUCOSE (UA) 3+ (NEGATIVE); URINE KETONE NEGATIVE (NEGATIVE); URINE LEUK ESTERASE TRACE (NEGATIVE); URINE NITRITE NEGATIVE (NEGATIVE); URINE PROTEIN NEGATIVE (NEGATIVE); URINE RBC 0 /hpf (0-4); URINE UROBILINOGEN 0.2 mg/dL (0.2-1.0); URINE WBC 4 /hpf (0-5)
[2019-03-04] MEDS ORDERED: ACETAMINOPHEN 325 MG TABLET (FP) PO PRN (23:50)
[2019-03-05] MEDS ORDERED: SODIUM CHLORIDE 1,000 ML IV SCH (02:30)
[2019-03-05] MEDS ORDERED: MELATONIN 5 MG TABLETS PO PRN (02:33)
[2019-03-05] MEDS: INSULIN (LEVEMIR) 100 UNITS/ML UNITS SQ SCH (06:33)
[2019-03-05] MEDS: INSULIN SLIDING SCALE (NOVOLOG) 1 VIAL SQ SCH ×4 (06:34→21:29)
[2019-03-05 08:31] LABS: BASO % 0.8 % (0-2.0); EOS % 3.6 % (0-4.5); HEMATOCRIT 34.7 % (32.4-45.2); HEMOGLOBIN 11.6 GM/dL (10.7-15.3); LYMPH % 34.7 % (8-40); MCHC 33.6 g/dl (32.0-36.0); MEAN CELL VOLUME 89.3 fl (80-96); MEAN PLT VOLUME 9.5 fl (7.5-11.1); MONO % 8.3 % (3.8-10.2); NEUT % 52.6 % (42.8-82.8); PLATELET COUNT 179 K/MM3 (134-434); RBC 3.88 M/mm3 (3.60-5.2); WHITE BLOOD COUNT 4.7 K/mm3 (4.0-10.0)
[2019-03-05 09:04] LABS: ALBUMIN 3.5 g/dl (3.4-5.0); BILIRUBIN,TOTAL 0.5 mg/dL (0.2-1); BLOOD UREA NITROGEN 19.2 mg/dL (7-18); CALCIUM 9.1 mg/dL (8.5-10.1); MAGNESIUM 1.9 mg/dL (1.8-2.4); PHOSPHOROUS 3.3 mg/dL (2.5-4.9); POTASSIUM 4.1 mmol/L (3.5-5.1); TOT PROT 5.9 g/dl (6.4-8.2)
--- NOTE | 2019-03-05 12:44 | EKG ---
Test Reason : Blood Pressure : / mmHG Vent. Rate : 067 BPM Atrial Rate : 067 BPM P-R Int : 180 ms QRS Dur : 076 ms QT Int : 388 ms P-R-T Axes : 054 059 054 degrees QTc Int : 409 ms POOR DATA QUALITY, INTERPRETATION MAY BE ADVERSELY AFFECTED NORMAL SINUS RHYTHM NORMAL ECG WHEN COMPARED WITH ECG OF 12-DEC-2011 03:10, NO SIGNIFICANT CHANGE WAS FOUND Confirmed by MISA BANSAL, DYLON ([id number]) on 03/05/2019 12:43:50 PM Referred By: Confirmed By:DYLON BYNUM MD
[2019-03-05 13:02] VITALS: BMI 24.7
--- NOTE | 2019-03-05 13:32 | ECHO ---
Name: VENESSA BENIGNA Exam:Adult Echocardiogram Study Date: 03/05/2019 10:44 AM Age: 78 yrs Reason For Study: HTN Height: 66 in Weight: 153 lb BSA: 1.8 m2 MMode/2D Measurements & Calculations IVSd: 0.96 cm Ao root diam: 2.4 cm LVIDd: 3.4 cm LA dimension: 2.6 cm LVIDs: 2.1 cm LVPWd: 0.83 cm EDV(Teich): 46.8 ml LVOT diam: 2.0 cm ESV(Teich): 14.8 ml LAV (MOD-bp): 36.0 ml Doppler Measurements & Calculations MV E max iain: 48.5 cm/sec Ao V2 max: 135.7 cm/sec MV A max iain: 88.3 cm/sec Ao max P.4 mmHg MV E/A: 0.55 MV dec time: 0.18 sec PATTIE(V,D): 3.0 cm2 LV V1 max P.5 mmHg TR max iain: 213.8 cm/sec LV V1 max: 127.1 cm/sec TR max P.3 mmHg PA V2 max: 90.9 cm/sec Med Peak E' Iain: 6.2 cm/sec PA max P.3 mmHg Med E/e': 7.8 Lat Peak E' Iain: 7.5 cm/sec Lat E/e': 6.5 Procedure A two-dimensional transthoracic echocardiogram with color flow and Doppler was performed. The study w as technically difficult with many images being suboptimal in quality. Left Ventricle The left ventricular size, thickness and function are normal. The left ventricle is not well visualiz ed. The left ventricular ejection fraction is normal. E/A reversal consistent with but not diagnostic of poor LV compliance. Regional wall motion abnormalities cannot be excluded due to limited visualization. Right Ventricle The right ventricle is not well visualized. Atria Normal left and right atrial size and function. Mitral Valve The mitral valve is not well visualized. There is mild mitral valve thickening. There is no mitral va lve stenosis. There is trace to mild mitral regurgitation. Tricuspid Valve The tricuspid valve is not well visualized. There is no tricuspid stenosis. There is Trace to mild tr icuspid regurgitation. Right ventricular systolic pressure is normal. Aortic Valve The aortic valve is not well visualized. No hemodynamically significant valvular aortic stenosis. No aortic regurgitation is present. Pulmonic Valve The pulmonic valve is not well visualized. Great Vessels The aortic root is normal size. Pericardium/Pleura There is no pericardial effusion. Interpretation Summary The study was technically difficult with many images being suboptimal in quality. The left ventricular size, thickness and function are normal The left ventricle is not well visualized. The left ventricular ejection fraction is normal. Regional wall motion abnormalities cannot be excluded due to limited visualization. There is mild mitral valve thickening. There is Trace to mild tricuspid regurgitation. Right ventricular systolic pressure is normal. E/A reversal consistent with but not diagnostic of poor LV compliance There is trace to mild mitral regurgitation. MD Antelmo Frank 03/05/2019 01:32 PM
--- NOTE | 2019-03-05 15:16 | PN ---
Teaching Attending Note Name of Resident: James Davis ATTENDING PHYSICIAN STATEMENT I saw and evaluated the patient. I reviewed the resident's note and discussed the case with the resident. I agree with the resident's findings and plan as documented. SUBJECTIVE: Feels well. Reports headache improved. No other complaints. No visual disturbance/limb numbness, weakness, tingling. OBJECTIVE: AAO x 3. Afebrile, Hemodynamically Stable. Last Vital Signs Temp Pulse Resp BP Pulse Ox 98.5 F 76 18 120/71 96 03/05/19 10:00 03/05/19 10:00 03/05/19 10:00 03/05/19 10:00 03/05/19 08:03 HEENT - Atraumatic, Normocephalic. Heart - S1, S2, RRR Lungs - clear to auscultation Abdomen- Soft, non-tender. Bowel Sounds normal Extremities -bilateral venous stasis with varicosities and edema. R > L. No calf tenderness. Neuro -AAO x 3. tone/Power normal all extremities. Laboratory Results - last 24 hr 03/04/19 03/04/19 03/04/19 14:24 17:37 19:13 WBC RBC Hgb Hct MCV MCH MCHC RDW Plt Count MPV Absolute Neuts (auto) Neutrophils % Lymphocytes % Monocytes % Eosinophils % Basophils % Nucleated RBC % Sodium 131 L Potassium 5.1 Chloride 95 L Carbon Dioxide 27 Anion Gap 9 BUN 27.0 H Creatinine 1.4 H Est GFR (CKD-EPI)AfAm 42.19 Est GFR (CKD-EPI)NonAf 36.41 POC Glucometer 382 Random Glucose 538 H* Hemoglobin A1c % Calcium 9.8 Phosphorus 4.2 Magnesium 2.2 Total Bilirubin 0.3 AST 12 L ALT 23 Alkaline Phosphatase 80 Creatine Kinase 58 Troponin I < 0.02 < 0.02 Total Protein 6.9 Albumin 3.9 Beta-Hydroxybutyrate 11.8 H TSH Urine Color Urine Appearance Urine pH Ur Specific [place] Urine Protein Urine Glucose (UA) Urine Ketones Urine Blood Urine Nitrite Urine Bilirubin Urine Urobilinogen Ur Leukocyte Esterase Urine WBC (Auto) Urine RBC (Auto) Urine Casts (Auto) U Epithel Cells (Auto) Urine Bacteria (Auto) 03/04/19 03/04/19 03/05/19 22:11 22:35 06:32 WBC RBC Hgb Hct MCV MCH MCHC RDW Plt Count MPV Absolute Neuts (auto) Neutrophils % Lymphocytes % Monocytes % Eosinophils % Basophils % Nucleated RBC % Sodium Potassium Chloride Carbon Dioxide Anion Gap BUN Creatinine Est GFR (CKD-EPI)AfAm Est GFR (CKD-EPI)NonAf POC Glucometer 253 165 Random Glucose Hemoglobin A1c % Calcium Phosphorus Magnesium Total Bilirubin AST ALT Alkaline Phosphatase Creatine Kinase Troponin I Total Protein Albumin Beta-Hydroxybutyrate TSH Urine Color Yellow Urine Appearance Clear Urine pH 6.0 Ur Specific [place] 1.020 Urine Protein Negative Urine Glucose (UA) 3+ H Urine Ketones Negative Urine Blood Negative Urine Nitrite Negative Urine Bilirubin Negative Urine Urobilinogen 0.2 Ur Leukocyte Esterase Trace Urine WBC (Auto) 4 Urine RBC (Auto) 0 Urine Casts (Auto) 1 U Epithel Cells (Auto) 1.3 Urine Bacteria (Auto) 9.5 03/05/19 03/05/19 03/05/19 07:50 07:50 07:50 WBC 4.7 RBC 3.88 Hgb 11.6 Hct 34.7 MCV 89.3 MCH 30.0 MCHC 33.6 RDW 13.0 Plt Count 179 MPV 9.5 Absolute Neuts (auto) 2.5 Neutrophils % 52.6 Lymphocytes % 34.7 D Monocytes % 8.3 Eosinophils % 3.6 D Basophils % 0.8 Nucleated RBC % 0 Sodium 138 Potassium 4.1 Chloride 102 Carbon Dioxide 30 Anion Gap 6 L BUN 19.2 H Creatinine 1.0 Est GFR (CKD-EPI)AfAm 63.38 Est GFR (CKD-EPI)NonAf 54.68 POC Glucometer Random Glucose 158 H Hemoglobin A1c % 15.5 H Calcium 9.1 Phosphorus 3.3 Magnesium 1.9 Total Bilirubin 0.5 AST 13 L ALT 19 Alkaline Phosphatase 67 Creatine Kinase Troponin I Total Protein 5.9 L Albumin 3.5 Beta-Hydroxybutyrate TSH 1.73 Urine Color Urine Appearance Urine pH Ur Specific [place] Urine Protein Urine Glucose (UA) Urine Ketones Urine Blood Urine Nitrite Urine Bilirubin Urine Urobilinogen Ur Leukocyte Esterase Urine WBC (Auto) Urine RBC (Auto) Urine Casts (Auto) U Epithel Cells (Auto) Urine Bacteria (Auto) 03/05/19 11:41 WBC RBC Hgb Hct MCV MCH MCHC RDW Plt Count MPV Absolute Neuts (auto) Neutrophils % Lymphocytes % Monocytes % Eosinophils % Basophils % Nucleated RBC % Sodium Potassium Chloride Carbon Dioxide Anion Gap BUN Creatinine Est GFR (CKD-EPI)AfAm Est GFR (CKD-EPI)NonAf POC Glucometer 280 Random Glucose Hemoglobin A1c % Calcium Phosphorus Magnesium Total Bilirubin AST ALT Alkaline Phosphatase Creatine Kinase Troponin I Total Protein Albumin Beta-Hydroxybutyrate TSH Urine Color Urine Appearance Urine pH Ur Specific [place] Urine Protein Urine Glucose (UA) Urine Ketones Urine Blood Urine Nitrite Urine Bilirubin Urine Urobilinogen Ur Leukocyte Esterase Urine WBC (Auto) Urine RBC (Auto) Urine Casts (Auto) U Epithel Cells (Auto) Urine Bacteria (Auto) Current Medications Generic Name Dose Route Start Last Admin Trade Name Freq PRN Reason Stop Dose Admin Acetaminophen 325 mg 03/04/19 23:50 03/05/19 00:27 Tylenol - PO 325 mg Q6H PRN Administration PAIN LEVEL 4 - 6 Sodium Chloride 1,000 mls @ 83 mls/hr 03/05/19 02:30 03/05/19 03:01 Normal Saline - IV 83 mls/hr ASDIR OLAYINKA Administration Insulin Aspart 1 vial 03/04/19 22:00 03/05/19 11:47 Novolog Vial Sliding Scale - SQ 6 units ACHS OLAYINKA Administration Protocol Insulin Detemir 5 units 03/05/19 07:00 03/05/19 06:33 Levemir Vial SQ 5 units AM OLAYINKA Administration Melatonin 5 mg 03/05/19 02:33 03/05/19 03:01 Melatonin PO 5 mg HS PRN Administration INSOMNIA ASSESSMENT AND PLAN: 78 year old female with history of HTN, HLD, DM 2 with peripheral neuropathy, Hx CVA (residual R arm weakness), Bilateral LE DVTs (on Eliquis), SD, s/p right ankle replacement, presents with worsening L arm paresthesias, R chest pain, found to have significant hyperglycemia in ED with serum glucose of >600. 1. Severe Hyperglycemia sec to Uncontrolled DM 2 sec to medication non- compliance A1C 15.5 Patient admits to poor compliance with Levemir. Betahydroxybutyrate +, but no evidence of acidosis Endocrinology consulted for poorly controlled DM 2. 2. Atypical CP, resolved. ECG - no acute changes. CXR - no acute findings. TropI neg x 2 ACS unlikley. 3. Pseudohyponatremia sec to Hyperglycemia Improving with correction of serum glucose. 4. Hx Bilateral LE DVT Continue Eliquis. 5. Seizure disorder - continue Keppra. 6. CHRISTOPH sec to dehydration due to hyperglycemia - resolved with gentle rehydration DVT Px - on Eliquis.
--- NOTE | 2019-03-05 15:53 | PN ---
Physical Exam: SUBJECTIVE: Patient seen and examined at the bedside. Patient stated that she had a headache and had some numbness and tingling in her left hand. Patient noted that she was not compliant with her medications. Denied symptoms of cp, sob, abd pain, n/v/c/d, fever, chills, dizziness, lightheadedness. OBJECTIVE: Vital Signs Period Temp Pulse Resp BP Sys/Rey Pulse Ox Last 24 Hr 98 F-98.6 F 70-85 18-20 120-136/64-85 96-99 GENERAL: The patient is awake, alert, and fully oriented, in mild acute distress. HEAD: Normal with no signs of trauma. EYES: PERRL, extraocular movements intact, sclera anicteric, conjunctiva clear. ENT: Oropharynx clear without exudates, moist mucous membranes. NECK: Trachea midline, full range of motion, supple. LUNGS: Breath sounds equal, clear to auscultation bilaterally, no wheezes, no crackles, no accessory muscle use. HEART: Regular rate and rhythm, S1, S2 without murmur, rub. ABDOMEN: Soft, nontender, nondistended, normoactive bowel sounds, no guarding, no rebound,no masses. EXTREMITIES: 2+ pulses, warm, well-perfused, 2+ edema noted. Chronic stasis dermatitis NEUROLOGICAL: Cranial nerves II through XII grossly intact. 5/5 muscle strength upper and lower extremities bilaterally. PSYCH: Normal mood, normal affect. SKIN: Warm, dry, normal turgor, chronic venous stasis dermatitis. Laboratory Results - last 24 hr 03/04/19 03/04/19 03/04/19 14:24 17:37 19:13 WBC RBC Hgb Hct MCV MCH MCHC RDW Plt Count MPV Absolute Neuts (auto) Neutrophils % Lymphocytes % Monocytes % Eosinophils % Basophils % Nucleated RBC % Sodium 131 L Potassium 5.1 Chloride 95 L Carbon Dioxide 27 Anion Gap 9 BUN 27.0 H Creatinine 1.4 H Est GFR (CKD-EPI)AfAm 42.19 Est GFR (CKD-EPI)NonAf 36.41 POC Glucometer 382 Random Glucose 538 H* Hemoglobin A1c % Calcium 9.8 Phosphorus 4.2 Magnesium 2.2 Total Bilirubin 0.3 AST 12 L ALT 23 Alkaline Phosphatase 80 Creatine Kinase 58 Troponin I < 0.02 < 0.02 Total Protein 6.9 Albumin 3.9 Beta-Hydroxybutyrate 11.8 H TSH Urine Color Urine Appearance Urine pH Ur Specific [place] Urine Protein Urine Glucose (UA) Urine Ketones Urine Blood Urine Nitrite Urine Bilirubin Urine Urobilinogen Ur Leukocyte Esterase Urine WBC (Auto) Urine RBC (Auto) Urine Casts (Auto) U Epithel Cells (Auto) Urine Bacteria (Auto) 03/04/19 03/04/19 03/05/19 22:11 22:35 06:32 WBC RBC Hgb Hct MCV MCH MCHC RDW Plt Count MPV Absolute Neuts (auto) Neutrophils % Lymphocytes % Monocytes % Eosinophils % Basophils % Nucleated RBC % Sodium Potassium Chloride Carbon Dioxide Anion Gap BUN Creatinine Est GFR (CKD-EPI)AfAm Est GFR (CKD-EPI)NonAf POC Glucometer 253 165 Random Glucose Hemoglobin A1c % Calcium Phosphorus Magnesium Total Bilirubin AST ALT Alkaline Phosphatase Creatine Kinase Troponin I Total Protein Albumin Beta-Hydroxybutyrate TSH Urine Color Yellow Urine Appearance Clear Urine pH 6.0 Ur Specific [place] 1.020 Urine Protein Negative Urine Glucose (UA) 3+ H Urine Ketones Negative Urine Blood Negative Urine Nitrite Negative Urine Bilirubin Negative Urine Urobilinogen 0.2 Ur Leukocyte Esterase Trace Urine WBC (Auto) 4 Urine RBC (Auto) 0 Urine Casts (Auto) 1 U Epithel Cells (Auto) 1.3 Urine Bacteria (Auto) 9.5 03/05/19 03/05/19 03/05/19 07:50 07:50 07:50 WBC 4.7 RBC 3.88 Hgb 11.6 Hct 34.7 MCV 89.3 MCH 30.0 MCHC 33.6 RDW 13.0 Plt Count 179 MPV 9.5 Absolute Neuts (auto) 2.5 Neutrophils % 52.6 Lymphocytes % 34.7 D Monocytes % 8.3 Eosinophils % 3.6 D Basophils % 0.8 Nucleated RBC % 0 Sodium 138 Potassium 4.1 Chloride 102 Carbon Dioxide 30 Anion Gap 6 L BUN 19.2 H Creatinine 1.0 Est GFR (CKD-EPI)AfAm 63.38 Est GFR (CKD-EPI)NonAf 54.68 POC Glucometer Random Glucose 158 H Hemoglobin A1c % 15.5 H Calcium 9.1 Phosphorus 3.3 Magnesium 1.9 Total Bilirubin 0.5 AST 13 L ALT 19 Alkaline Phosphatase 67 Creatine Kinase Troponin I Total Protein 5.9 L Albumin 3.5 Beta-Hydroxybutyrate TSH 1.73 Urine Color Urine Appearance Urine pH Ur Specific [place] Urine Protein Urine Glucose (UA) Urine Ketones Urine Blood Urine Nitrite Urine Bilirubin Urine Urobilinogen Ur Leukocyte Esterase Urine WBC (Auto) Urine RBC (Auto) Urine Casts (Auto) U Epithel Cells (Auto) Urine Bacteria (Auto) 03/05/19 11:41 WBC RBC Hgb Hct MCV MCH MCHC RDW Plt Count MPV Absolute Neuts (auto) Neutrophils % Lymphocytes % Monocytes % Eosinophils % Basophils % Nucleated RBC % Sodium Potassium Chloride Carbon Dioxide Anion Gap BUN Creatinine Est GFR (CKD-EPI)AfAm Est GFR (CKD-EPI)NonAf POC Glucometer 280 Random Glucose Hemoglobin A1c % Calcium Phosphorus Magnesium Total Bilirubin AST ALT Alkaline Phosphatase Creatine Kinase Troponin I Total Protein Albumin Beta-Hydroxybutyrate TSH Urine Color Urine Appearance Urine pH Ur Specific [place] Urine Protein Urine Glucose (UA) Urine Ketones Urine Blood Urine Nitrite Urine Bilirubin Urine Urobilinogen Ur Leukocyte Esterase Urine WBC (Auto) Urine RBC (Auto) Urine Casts (Auto) U Epithel Cells (Auto) Urine Bacteria (Auto) Active Medications Generic Name Dose Route Start Last Admin Trade Name Freq PRN Reason Stop Dose Admin Acetaminophen 325 mg 03/04/19 23:50 03/05/19 00:27 Tylenol - PO 325 mg Q6H PRN Administration PAIN LEVEL 4 - 6 Apixaban 5 mg 03/05/19 22:00 Eliquis - PO BID [facility] Aspirin 81 mg 03/06/19 10:00 Asa - PO DAILY [facility] Gabapentin 100 mg 03/05/19 22:00 Neurontin - PO BID OLAYINKA Sodium Chloride 1,000 mls @ 83 mls/hr 03/05/19 02:30 03/05/19 03:01 Normal Saline - IV 83 mls/hr ASDIR OLAYINKA Administration Insulin Aspart 1 vial 03/04/19 22:00 03/05/19 11:47 Novolog Vial Sliding Scale - SQ 6 units ACHS OLAYINKA Administration Protocol Insulin Detemir 5 units 03/05/19 07:00 03/05/19 06:33 Levemir Vial SQ 5 units AM OLAYINKA Administration Levetiracetam 500 mg 03/05/19 22:00 Keppra - PO BID OLAYINKA Losartan Potassium 50 mg 03/06/19 10:00 Cozaar - PO DAILY OLAYINKA Melatonin 5 mg 03/05/19 02:33 03/05/19 03:01 Melatonin PO 5 mg HS PRN Administration INSOMNIA Metoprolol Succinate 25 mg 03/06/19 10:00 Toprol Xl - PO DAILY OLAYINKA Non-Formulary Medication 20 units 03/05/19 22:00 Insulin Detemir [Levemir Flextouch] SQ HS [facility] ASSESSMENT/PLAN: Nya Koo is a 78 year old montenegrin speaking female with a past medical history of HTN, HLD, uncontrolled DM with peripheral neuropathy, CVA with residual left sided weakness, bilateral LE DVT (on eliquis), and seizures admitted for uncontrolled diabetes. Uncontrolled diabetes 2/2 non adherance to medications - BG on admission 538, morning labs with random glucose 158 - + betahydroxybutarate - BGM - ISS - home levemir 20 units subq - A1c 15.5 - losartan for renal protection - Endocrine consulted - patient will require diabetes education - educated on medication compliance CHRISTOPH - CRE 1.4 on admission, likely prerenal, resolved on morning labs to 1.0 - Avoid nephrotoxins LUE tingling with tremors and headache - head CT done with no acute finding but with evidence of slight ventricular dilation and brain involutional changes noted - PT ordered - Fall precautions Chest pain - unlikely cardiac as it is reproducible and right sided, resolved as of this morning - CXR with no acute findings - trop neg x2 - EKG with NSR at [address] changes - echo with normal LV function, size, thickness, normal EF, trace to mild mitral and tricuspid regurg, consistent with poor LV compliance Hyponatremia - admission Na 131, corrected 138, pseudohyponatremia secondary to hyperglycemia - currently 138 HTN - resume home meds once med rec Seizure disorder - cont keppra 500 BID History of DVT - cont eliquis 2.5 Prophylaxis - on Eliquis FEN - no standing fluids, encourage PO intake - continue to monitor electrolytes and replete as necessary - diabetic diet Dispo - continue to monitor on Med-surg Visit type - Emergency Visit Emergency Visit: Yes ED Registration Date: 03/04/19 Care time: The patient presented to the Emergency Department on the above date and was hospitalized for further evaluation of their emergent condition. - New Patient This patient is new to me today: Yes Date on this admission: 03/05/19 - Critical Care Critical Care patient: No
--- NOTE | 2019-03-05 17:39 | CONSULT ---
Consult Consult Specialty:: Endocrinology Referred by:: Shawn Jay Reason for Consultation:: Hyperglycemia - History of Present Illness Chief Complaint: Tremor of left hand History of Present Illness: This is a 78 y/o female with h/o T2DM for about 20 years, on Insulin for about 6 years presented to [facility] ER complaining of tremors and pain in her left hand/ arm for the past 3 days. . Initially, reported the symptoms started three days ago after receiving a Toradol shot for a headache at her PCPs office. Then clarified that she had experienced similar symptoms chronically since her stroke in May. Her neurologist has not been able to control the symptoms. The pt then reported she developed right sided anterior chest wall pain when she arrived at the hospital. Says she take Insulin twice a day and checks her blood sugar also twice daily. Has not taken the insulin in the past three days because her doctor did not tell her to continue using it after the office visit. - History Source History Provided By: Patient, Medical Record Limitations to Obtaining History: Poor Historian - Past Medical History Endocrine: Yes: Diabetes Mellitus - Alcohol/Substance Use Hx Alcohol Use: No - Smoking History Smoking history: Never smoked Have you smoked in the past 12 months: No Aproximately how many cigarettes per day: 0 Home Medications - Allergies Allergies/Adverse Reactions: Allergies Allergy/AdvReac Type Severity Reaction Status Date / Time shellfish derived Allergy Verified 03/04/19 13:45 Shellfish Allergy Uncoded 03/04/19 13:45 - Home Medications Home Medications: Ambulatory Orders Aspirin [ASA -] 81 mg PO DAILY 10/30/11 Losartan Potassium 50 mg PO DAILY 05/24/18 Metformin HCl [Glucophage] 1,000 mg PO BID 05/24/18 Alendronate Sodium [Fosamax] 1 tab WEEKLY 03/04/19 Apixaban [Eliquis] 5 mg PO BID 03/04/19 Gabapentin 100 mg PO BID 03/04/19 Metoprolol Succinate [Toprol Xl] 25 mg PO DAILY 03/04/19 Insulin Detemir [Levemir Flextouch] 20 units SQ HS 03/05/19 levETIRAcetam [Keppra -] 500 mg PO DAILY 03/05/19 Review of Systems - Review of Systems Constitutional: reports: No Symptoms Eyes: reports: No Symptoms HENT: reports: No Symptoms Neck: reports: No Symptoms Cardiovascular: reports: No Symptoms Respiratory: reports: No Symptoms Gastrointestinal: reports: No Symptoms Genitourinary: reports: No Symptoms Musculoskeletal: reports: Extremity Pain (pain and tremor left hand/arm) Neurological: reports: Tremors (of left hand Nervousness) Psychiatric: reports: Anxiety Physical Exam Vital Signs: Vital Signs Temperature 97.9 F 03/05/19 17:27 Pulse Rate 90 03/05/19 17:27 Respiratory Rate 20 03/05/19 17:27 Blood Pressure 127/75 03/05/19 17:27 O2 Sat by Pulse Oximetry (%) 96 03/05/19 08:03 Constitutional: Yes: Anxious Eyes: Yes: Conjunctiva Clear, EOM Intact HENT: Yes: Atraumatic, Normocephalic Neck: Yes: Supple, Trachea Midline Cardiovascular: Yes: Regular Rate and Rhythm Respiratory: Yes: Regular Gastrointestinal: Yes: Normal Bowel Sounds, Soft Musculoskeletal: Yes: WNL Extremities: Yes: Other (Tremors of left hand) Edema: No Labs: CBC, BMP 03/05/19 07:50 03/05/19 07:50 Imaging - Results Cat Scan: Report Reviewed Assessment/Plan AP: T2DM uncontrolled HTN Tremor of left hand Anxiety Seizure disorder BGM QACHS Levemir 10 units daily at HS for tonight. Got 5 units in AM. Adjust dose as necessary Novolog SS coverage Pt anxious and poor historian. Unclear how much Insulin and how often she is taking. Unable to do any diabetes education Will try again tomorrow
[2019-03-05] MEDS ORDERED: INSULIN (NOVOLOG) ASPART 100 UNITS/ML 10ML VIAL ONE (18:26)
[2019-03-05] MEDS: GABAPENTIN 100 MG CAPSULE (FP) PO SCH (21:25)
[2019-03-05] MEDS: levETIRAcetam 500 MG TABLET (FP) PO SCH (21:25)
[2019-03-05] MEDS: APIXABAN 5 MG TABLET PO SCH (21:25)
[2019-03-05] MEDS ORDERED: INSULIN (LEVEMIR) 100 UNITS/ML UNITS SQ SCH ×2 (22:00)
[2019-03-06] MEDS: INSULIN SLIDING SCALE (NOVOLOG) 1 VIAL SQ SCH ×2 (06:28→11:14)
[2019-03-06] MEDS: INSULIN (LEVEMIR) 100 UNITS/ML UNITS SQ SCH (06:28)
[2019-03-06 07:32] VITALS: TEMP 97.8
[2019-03-06 08:22] LABS: HEMATOCRIT 41.1 % (32.4-45.2); HEMOGLOBIN 13.7 GM/dL (10.7-15.3); MCH 30.1 pg (25.7-33.7); MCHC 33.4 g/dl (32.0-36.0); MEAN CELL VOLUME 90.2 fl (80-96); MEAN PLT VOLUME 9.6 fl (7.5-11.1); PLATELET COUNT 228 K/MM3 (134-434); RBC 4.55 M/mm3 (3.60-5.2); RDW 13.3 % (11.6-15.6); WHITE BLOOD COUNT 5.1 K/mm3 (4.0-10.0)
[2019-03-06 08:49] LABS: BLOOD UREA NITROGEN 18.8 mg/dL (7-18); CALCIUM 9.9 mg/dL (8.5-10.1); CREATININE 1.2 mg/dL (0.55-1.3); MAGNESIUM 1.9 mg/dL (1.8-2.4); POTASSIUM 3.5 mmol/L (3.5-5.1)
[2019-03-06] MEDS ORDERED: MAGNESIUM SULF 50% (8.12 MEQ/2 ML-1 GM VIAL) IVPB ONE (09:30)
[2019-03-06 09:35] VITALS: BP 115/75; PULSE 88
--- NOTE | 2019-03-06 09:55 | PN ---
Progress Note (short form) - Note Progress Note: Eager to go home Denies any complaints Vital Signs Period Temp Pulse Resp BP Sys/Rey Pulse Ox Last 24 Hr 97.7 F-97.9 F 83-91 18-20 115-155/75-78 98-98 PE: Awake, alert Neck: Supple, No JVD HEENT: EOMI Lungs: CTA CVS: S1S2 Abd: Benign Ext: No edema CMP Sodium 138 mmol/L (136-145) 03/06/19 07:55 Potassium 3.5 mmol/L (3.5-5.1) 03/06/19 07:55 Chloride 103 mmol/L (98-107) 03/06/19 07:55 Carbon Dioxide 27 mmol/L (21-32) 03/06/19 07:55 Anion Gap 9 MMOL/L (8-16) 03/06/19 07:55 BUN 18.8 mg/dL (7-18) H 03/06/19 07:55 Creatinine 1.2 mg/dL (0.55-1.3) 03/06/19 07:55 Est GFR (CKD-EPI)AfAm 50.84 03/06/19 07:55 Est GFR (CKD-EPI)NonAf 43.86 03/06/19 07:55 POC Glucometer 355 UNITS (80-120) 03/06/19 11:12 Random Glucose 91 mg/dL (74-106) 03/06/19 07:55 Hemoglobin A1c % 15.5 % (4.2-6.3) H 03/05/19 07:50 Calcium 9.9 mg/dL (8.5-10.1) 03/06/19 07:55 Phosphorus 3.3 mg/dL (2.5-4.9) 03/05/19 07:50 Magnesium 1.9 mg/dL (1.8-2.4) 03/06/19 07:55 Total Bilirubin 0.5 mg/dL (0.2-1) 03/05/19 07:50 AST 13 U/L (15-37) L 03/05/19 07:50 ALT 19 U/L (13-61) 03/05/19 07:50 Alkaline Phosphatase 67 U/L (45-117) 03/05/19 07:50 Creatine Kinase 58 U/L (26-192) 03/04/19 14:24 Troponin I < 0.02 ng/ml (0.00-0.05) 03/04/19 19:13 Total Protein 5.9 g/dl (6.4-8.2) L 03/05/19 07:50 Albumin 3.5 g/dl (3.4-5.0) 03/05/19 07:50 Beta-Hydroxybutyrate 11.8 mg/dL (0.2-2.8) H 03/04/19 14:24 TSH 1.73 uIU/ml (0.358-3.74) 03/05/19 07:50 AP: T2DM uncontrolled HTN Tremor of left hand Anxiety Seizure disorder BGM QACHS Pt may go home on: Levemir 10 units daily at HS Metformin 500mg BID Doesn't seem to need a lot of premeal Insulin the the hospital. Medication will need to be adjusted by her Medical Records Analyst or PCP after discharge. Pt anxious and poor historian. Unclear how much Insulin and how often she is taking. Unable to do any diabetes education Will try again tomorrow
[2019-03-06] MEDS ORDERED: LOSARTAN POTASSIUM 50 MG TABLET (FP) PO SCH (10:00)
[2019-03-06] MEDS ORDERED: levETIRAcetam 500 MG TABLET (FP) PO SCH (10:00)
[2019-03-06] MEDS ORDERED: ASPIRIN 81 MG CHEWABLE TABLETS PO SCH (10:00)
[2019-03-06] MEDS ORDERED: metoPROLOL SUCCINATE 25 MG TAB.SR.24H (FP) PO SCH (10:00)
[2019-03-06] MEDS: GABAPENTIN 100 MG CAPSULE (FP) PO SCH (10:06)
[2019-03-06] MEDS: levETIRAcetam 500 MG TABLET (FP) PO SCH (10:06)
[2019-03-06] MEDS: APIXABAN 5 MG TABLET PO SCH (10:06)
--- NOTE | 2019-03-06 13:42 | DS ---
Physical Exam: SUBJECTIVE: Patient seen and examined at the bedside. Patient stated she is feeling well and denies any acute complaints of cp, sob, abd pain, n/v/c/d, fever, chills, dizziness, lightheadedness, weakness. She endorsed her chronic tingling in her R hand. OBJECTIVE: Vital Signs Period Temp Pulse Resp BP Sys/Rey Pulse Ox Last 24 Hr 97.7 F-97.9 F 71-91 18-20 115-155/72-78 98-98 PHYSICAL EXAM GENERAL: The patient is awake, alert, and fully oriented, in no acute distress. HEAD: Normal with no signs of trauma. EYES: PERRL, extraocular movements intact, sclera anicteric, conjunctiva clear. ENT: Oropharynx clear without exudates, moist mucous membranes. NECK: Trachea midline, full range of motion, supple. LUNGS: Breath sounds equal, clear to auscultation bilaterally, no wheezes, no crackles, no accessory muscle use. HEART: Regular rate and rhythm, S1, S2 without murmur, rub. ABDOMEN: Soft, nontender, nondistended, normoactive bowel sounds, no guarding, no rebound,no masses. EXTREMITIES: 2+ pulses, warm, well-perfused, 2+ edema noted. Chronic stasis dermatitis NEUROLOGICAL: Cranial nerves II through XII grossly intact. 5/5 muscle strength upper and lower extremities bilaterally. PSYCH: Normal mood, normal affect. SKIN: Warm, dry, normal turgor, chronic venous stasis dermatitis. LABS Laboratory Results - last 24 hr 03/05/19 03/05/19 03/06/19 17:44 21:28 06:27 WBC RBC Hgb Hct MCV MCH MCHC RDW Plt Count MPV Sodium Potassium Chloride Carbon Dioxide Anion Gap BUN Creatinine Est GFR (CKD-EPI)AfAm Est GFR (CKD-EPI)NonAf POC Glucometer 225 177 73 Random Glucose Calcium Magnesium 03/06/19 03/06/19 03/06/19 07:55 07:55 11:12 WBC 5.1 RBC 4.55 Hgb 13.7 Hct 41.1 D MCV 90.2 MCH 30.1 MCHC 33.4 RDW 13.3 Plt Count 228 D MPV 9.6 Sodium 138 Potassium 3.5 Chloride 103 Carbon Dioxide 27 Anion Gap 9 BUN 18.8 H Creatinine 1.2 Est GFR (CKD-EPI)AfAm 50.84 Est GFR (CKD-EPI)NonAf 43.86 POC Glucometer 355 Random Glucose 91 Calcium 9.9 Magnesium 1.9 HOSPITAL COURSE: Nya Koo is a 78 year old slovenian speaking female with a past medical history of HTN, HLD, uncontrolled DM with peripheral neuropathy, CVA with residual left sided weakness, bilateral LE DVT (on eliquis), and seizures admitted for uncontrolled diabetes. Patient's blood sugar on admission was 538 with positive betahydroxybutarate. Patient stated that she was not always compliant with her diabetes medications and complained of having too many pills to take. A1c measured was 15.5. Endocrine was consulted and recommended that the patient start 15units of Levemir nightly and continue taking her oral metformin and follow up in the outpatient clinic. Patient and daughter at the bedside were counseled at length about the need to have compliance with medications and how non-compliance may cause damage to other organ system including but not limited to kidneys, heart, brain, liver, and extremities. Due to fall prior to admission, patient had head CT performed which showed no acute finding but with evidence of slight ventricular dilation and brain involutional changes noted. Patient is to follow up with neurology for these findings as well as for her hand pain. She presented with right sided reproducible chest pain that resolved. EKG with no acute findings, troponins were negative and echo showed normal LV function, size, thickness, normal EF, trace to mild mitral and tricuspid regurg, consistent with poor LV compliance. Patient to follow up with her PCP for these findings. Patient and daughter were advised that the patient needs to follow up with her PCP, endocrinology, and neurology. Patient was advised and counseled at length regarding her diagnosis of diabetes and the necessity for proper blood glucose measurements, compliance with medications, and proper physician follow up. Patient and daughter were advised of the plan, were in agreement, and reiterated the plan. Patient was discharged in stable medical condition. Date of Admission:03/04/19 Date of Discharge: 03/06/19 Minutes to complete discharge: 35 Discharge Summary Problems reviewed: Yes Reason For Visit: ELEVATED BETA HYDROXYBUTYRIC ACID LEVEL Condition: Improved - Instructions Diet, Activity, Other Instructions: You were admitted because you have very elevated blood sugar. You were given medication to improve your blood sugar. It is important to always take your medication and follow up with your doctors for your diabetes. You were found to have a very elevated level of blood sugars over the last 3 months based upon a blood test. You are advised to follow up with an cloth pattern maker (hormone doctor ) for these findings You had a CT scan of your head which showed some chronic changes. You are advised to follow up with a neurologist (brain doctor) for these findings. You had an ultrasound of your heart which showed normal size and function of your heart and some mild valve abnormalities. You are advised to follow up with your primary care doctor for these findings. MEDICATIONS START taking Levemir 15 units every night. Continue taking your metformin. Please continue taking all of your other home medications as prescribed. REFERRALS Please follow up with your primary care doctor, Dr. Main Sparks, within 1 week. Please follow up with the cloth pattern maker, Dr. Judi Kiran, within 1 week. Please follow up with the neurologist, Dr. Jermain Wright, within 1 week. SPECIAL INSTRUCTIONS Make sure to eat a diet that is low in sugar. If you have any further symptoms of chest pain, shortness of breath, fevers, inability to eat, or any other general feelings of unwellness, please call 911 or go to your nearest emergency room. Referrals: Jermain Wright MD [Staff Physician] - 1 Week Main Sparks MD [Primary Care Provider] - 1 Week Judi Kiran MD [Staff Physician] - 1 Week Disposition: HOME - Home Medications Comprehensive Discharge Medication List: Ambulatory Orders Aspirin [ASA -] 81 mg PO DAILY 10/30/11 Losartan Potassium 50 mg PO DAILY 05/24/18 Metformin HCl [Glucophage] 1,000 mg PO BID 05/24/18 Alendronate Sodium [Fosamax] 1 tab WEEKLY 03/04/19 Apixaban [Eliquis] 5 mg PO BID 03/04/19 Gabapentin 100 mg PO BID 03/04/19 Metoprolol Succinate [Toprol Xl] 25 mg PO DAILY 03/04/19 levETIRAcetam [Keppra -] 500 mg PO DAILY 03/05/19 Insulin Detemir [Levemir Flextouch] 15 unit SQ HS #1 insuln.pen 03/06/19 Problem List - Problems (1) Elevated beta-hydroxybutyrate Code(s): R78.89 - FINDING OF OTH SUBSTANCES, NOT NORMALLY FOUND IN BLOOD (2) Hyperglycemia Code(s): R73.9 - HYPERGLYCEMIA, UNSPECIFIED (3) Right-sided chest pain Code(s): R07.9 - CHEST PAIN, UNSPECIFIED (4) Leg swelling Code(s): M79.89 - OTHER SPECIFIED SOFT TISSUE DISORDERS (5) Venous (peripheral) insufficiency Code(s): I87.2 - VENOUS INSUFFICIENCY (CHRONIC) (PERIPHERAL) This patient is new to me today: No Emergency Visit: Yes ED Registration Date: 03/04/19 Care time: The patient presented to the Emergency Department on the above date and was hospitalized for further evaluation of their emergent condition. Critical Care patient: No - Discharge Referral [facility]erred to [facility] Med P.C.: No
--- NOTE | 2019-03-06 14:33 | PN ---
Teaching Attending Note Name of Resident: James Davis ATTENDING PHYSICIAN STATEMENT I saw and evaluated the patient. I reviewed the resident's note and discussed the case with the resident. I agree with the resident's findings and plan as documented. SUBJECTIVE: Feels well. No complaints. No visual disturbance/limb numbness, weakness, tingling. OBJECTIVE: AAO x 3. Afebrile, Hemodynamically Stable. ambulating well. Last Vital Signs Temp Pulse Resp BP Pulse Ox 97.8 F 88 20 115/75 98 03/06/19 07:30 03/06/19 09:35 03/06/19 09:35 03/06/19 09:35 03/06/19 10:00 Heart - S1, S2, RRR Lungs - clear to auscultation Abdomen- Soft, non-tender. Bowel Sounds normal Extremities - bilateral venous stasis with varicosities and edema. R > L. No calf tenderness. Neuro - AAO x 3. Tone/Power normal all extremities. Laboratory Results - last 24 hr 03/05/19 03/05/19 03/06/19 17:44 21:28 06:27 WBC RBC Hgb Hct MCV MCH MCHC RDW Plt Count MPV Sodium Potassium Chloride Carbon Dioxide Anion Gap BUN Creatinine Est GFR (CKD-EPI)AfAm Est GFR (CKD-EPI)NonAf POC Glucometer 225 177 73 Random Glucose Calcium Magnesium 03/06/19 03/06/19 03/06/19 07:55 07:55 11:12 WBC 5.1 RBC 4.55 Hgb 13.7 Hct 41.1 D MCV 90.2 MCH 30.1 MCHC 33.4 RDW 13.3 Plt Count 228 D MPV 9.6 Sodium 138 Potassium 3.5 Chloride 103 Carbon Dioxide 27 Anion Gap 9 BUN 18.8 H Creatinine 1.2 Est GFR (CKD-EPI)AfAm 50.84 Est GFR (CKD-EPI)NonAf 43.86 POC Glucometer 355 Random Glucose 91 Calcium 9.9 Magnesium 1.9 Current Medications Generic Name Dose Route Start Last Admin Trade Name Freq PRN Reason Stop Dose Admin Acetaminophen 325 mg 03/04/19 23:50 03/05/19 00:27 Tylenol - PO 325 mg Q6H PRN Administration PAIN LEVEL 4 - 6 Apixaban 5 mg 03/05/19 22:00 03/06/19 10:06 Eliquis - PO 5 mg BID OLAYINKA Administration Aspirin 81 mg 03/06/19 10:00 03/06/19 10:06 Asa - PO 81 mg DAILY OLAYINKA Administration Gabapentin 100 mg 03/05/19 22:00 03/06/19 10:06 Neurontin - PO 100 mg BID OLAYINKA Administration Insulin Aspart 1 vial 03/04/19 22:00 03/06/19 11:14 Novolog Vial Sliding Scale - SQ 10 units ACHS OLAYINKA Administration Protocol Insulin Detemir 5 units 03/05/19 07:00 03/06/19 06:28 Levemir Vial SQ Not Given AM [facility] Insulin Detemir 10 units 03/05/19 22:00 03/05/19 21:31 Levemir Vial SQ 10 units HS OLAYINKA Administration Levetiracetam 500 mg 03/05/19 22:00 03/06/19 10:06 Keppra - PO 500 mg BID OLAYINKA Administration Losartan Potassium 50 mg 03/06/19 10:00 03/06/19 10:06 Cozaar - PO 50 mg DAILY OLAYINKA Administration Melatonin 5 mg 03/05/19 02:33 03/05/19 03:01 Melatonin PO 5 mg HS PRN Administration INSOMNIA Metoprolol Succinate 25 mg 03/06/19 10:00 03/06/19 10:06 Toprol Xl - PO 25 mg DAILY OLAYINKA Administration Home Medications Medication Instructions Recorded Aspirin [ASA -] 81 mg PO DAILY 10/30/11 Losartan Potassium 50 mg PO DAILY 05/24/18 Metformin HCl [Glucophage] 1,000 mg PO BID 05/24/18 Alendronate Sodium [Fosamax] 1 tab WEEKLY 03/04/19 Apixaban [Eliquis] 5 mg PO BID 03/04/19 Gabapentin 100 mg PO BID 03/04/19 Metoprolol Succinate [Toprol Xl] 25 mg PO DAILY 03/04/19 levETIRAcetam [Keppra -] 500 mg PO DAILY 03/05/19 Insulin Detemir [Levemir Flextouch] 15 unit SQ HS #1 insuln.pen 03/06/19 ASSESSMENT AND PLAN: 78 year old female with history of HTN, HLD, DM 2 with peripheral neuropathy, Hx CVA (residual R arm weakness), Bilateral LE DVTs (on Eliquis), SD, s/p right ankle replacement, presents with worsening L arm paresthesias, R chest pain, found to have significant hyperglycemia in ED with serum glucose of >600. 1. Severe Hyperglycemia sec to Uncontrolled DM 2 sec to medication non- compliance A1C 15.5 Patient admits to poor compliance with Levemir. Betahydroxybutyrate +, but no evidence of acidosis Endocrinology consulted for poorly controlled DM 2, patient clear for discharge pending Endocrinology recommendations for home Levemir dosing. Patient needs VNS and out-patient social secretary. Counselled regarding importance of insulin compliance. 2. Atypical CP, resolved. ECG - no acute changes. CXR - no acute findings. TropI neg x 2 Echo - normal. ACS unlikely. 3. Pseudohyponatremia sec to Hyperglycemia Improving with correction of serum glucose. 4. Hx Bilateral LE DVT Continue Eliquis. 5. Seizure disorder - continue Keppra. 6. CHRISTOPH sec to dehydration due to hyperglycemia - resolved with gentle rehydration DVT Px - on Eliquis.
== END 2019-03-06 14:30 | disposition home or self-care (01) | DRG 638 ==
LOC: JER 13:40 → JERBED 17:49 → J8W 20:47
PROVIDERS: ADMIT Internal Medicine
DX: E11.65 Type 2 diabetes mellitus with hyperglycemia (principal); E87.1 Hypo-osmolality and hyponatremia; N17.9 Acute kidney failure, unspecified; I69.352 Hemiplegia and hemiparesis following cerebral infarction affecting left dominant side; Z91.14 Patient's other noncompliance with medication regimen; R07.89 Other chest pain; E86.0 Dehydration; F41.9 Anxiety disorder, unspecified; E11.42 Type 2 diabetes mellitus with diabetic polyneuropathy
CPT/HCPCS: 36415; 70450-TC; 71046-TC-FY; 80048; 80053; 81003; 82010; 82550; 82962; 83036; 83735; 84100; 84443; 84484; 85025; 85027; 85610; 87077; 87086; 93005; 93010; 93306-TC; 97116-GP; 97161-GP; 99284-25; J7030

== ENCOUNTER 2019-03-13 22:16 | Inpatient (IN) | payer MEDICARE, OTHER ==
--- NOTE | 2019-03-13 22:20 | PDOC ---
History of Present Illness - History of Present Illness Initial Comments: 03/13/19 23:36 The patient is a 78 year old female with a history of HTN, HLD, DM, CVA, CAD, Seizures who presents for evaluation of headache, numbness, and fall. The patient reports severe right sided headache that acutely began today. She states that she has been experiencing dizziness and had two falls today with head trauma prompting her presentation to the ED for further evaluation. She notes associated numbness and tingling, in her hands bilaterally as well. She notes that she has had headache in the past with negative MRI but states that her headache and numbness are new today. She otherwise denies fevers, chills, SOB, chest pain, nausea, vomiting, abdominal pain, weakness, or changes with urination or bowel movements. <Coy Whitaker - Last Filed: 03/14/19 03:58> <Tristian Vang - Last Filed: 03/18/19 01:00> - General Chief Complaint: Injury Stated Complaint: FALL HEAD INJURY Time Seen by Provider: 03/13/19 22:19 NIH Stroke Scale - Last Known Well Date/Time & Onset Date Last Known Well: 03/13/19 - Initial Evaluation Level of consciousness: Alert Ask patient the month and their age: Answers both correctly Ask patient to open & close eyes; make fist and let go: Obeys both correctly Best gaze (horizontal eye movement): Normal Visual field testing: No visual field loss Facial paresis (Show teeth/raise eyebrows/close eyes tight): Normal symmetrical movement Motor Function: Left Arm: Normal Motor Function: Right Arm: Normal (extends arm 90 (or 45) degrees for 10 seconds without drift Motor Function: Left Leg: Normal (extends leg 30 degrees for 5 seconds without drift) Motor Function: Right Leg: Normal (extends leg 30 degrees for 5 seconds without drift) Limb Ataxia: No ataxia Sensory(Use pinprick test arms,legs,trunk,face/side to side): Normal Best language (Describe picture, name items, read sentences): No Aphasia Dysarthria (read several words): Normal articulation Extinction and Inattention: No abnormality - Total Score NIH Stroke Scale Score: 0 <Tristian Vang - Last Filed: 03/18/19 01:00> Past History - Past Medical History Cardiac Disorders: Yes (angina) CVA: Yes (May 2018) COPD: No Diabetes: Yes (IDDM, 73 tonight -> po -> 89 here) HTN: Yes Hypercholesterolemia: Yes Seizures: Yes - Immunization History Immunization Up to Date: Yes - Psycho Social/Smoking Cessation Hx Smoking Status: No Smoking History: Never smoked Have you smoked in the past 12 months: No Number of Cigarettes Smoked Daily: 0 Hx Alcohol Use: No Drug/Substance Use Hx: No Substance Use Type: None <Coy Whitaker - Last Filed: 03/14/19 03:58> <Tristian Vang - Last Filed: 03/18/19 01:00> - Past Medical History Allergies/Adverse Reactions: Allergies Allergy/AdvReac Type Severity Reaction Status Date / Time shellfish derived Allergy Verified 03/14/19 01:19 Shellfish Allergy Uncoded 03/14/19 01:19 Home Medications: Ambulatory Orders Aspirin [ASA -] 81 mg PO DAILY 10/30/11 Losartan Potassium 50 mg PO DAILY 05/24/18 Metformin HCl [Glucophage] 1,000 mg PO BID 05/24/18 Alendronate Sodium [Fosamax] 1 tab WEEKLY 03/04/19 Apixaban [Eliquis] 5 mg PO BID 03/04/19 Metoprolol Succinate [Toprol Xl] 25 mg PO DAILY 03/04/19 levETIRAcetam [Keppra -] 500 mg PO BID 03/05/19 Gabapentin 100 mg PO BID 03/14/19 Insulin Detemir [Levemir Flextouch] 15 unit SQ AM 03/14/19 Atorvastatin Ca [Lipitor] 40 mg PO HS #30 tab 03/17/19 Review of Systems - Review of Systems Comments:: 03/13/19 23:55 Constitutional: No fevers, chills, fatigue, malaise HEENT: No Rhinorrhea, nasal congestion, visual changes Cardiovascular: No chest pain, syncope, palpitations, lightheadedness Respiratory: No Cough, SOB, Hemoptysis, Gastrointestinal: No Abdominal pain, Nausea, Vomiting, Constipation, Diarrhea, Melena Genitourinary: No Dysuria, Frequency, Urgency, Hesitancy, Hematuria, Flank pain Musculoskeletal: No Myalgia, arthralgia Skin: No rashes, itching, bruising, pallor Neurologic: Headache, Dizziness, Numbness, Tingling, No Weakness Psychiatric: No Hallucinations. No SI or HI <Coy Whitaker - Last Filed: 03/14/19 03:58> *Physical Exam - Physical Exam 03/13/19 23:56 General Appearance: Nourished. No Apparent Distress HEENT: EOMI, ANGELICA. No Pharyngeal Erythema, Tonsillar Exudate, Tonsillar Erythema Neck: No Cervical Lymphadenopathy Respiratory/Chest: Lungs Clear, Normal Breath Sounds. No Crackles, Rales, Rhonchi, Wheezing Cardiovascular: Regular Rhythm, Regular Rate. No Murmur, Gallops, Rubs Gastrointestinal/Abdominal: Normal Bowel Sounds, Soft. No Guarding, Rebound, Tenderness Musculoskeletal: No CVA Tenderness Extremity: Normal Capillary Refill Integumentary: Normal Color, Dry, Warm Neurologic: cytology teacher II-XII NML intact, Fully Oriented, Alert, Normal Mood/Affect, Normal Response, Motor Strength 5/5. Normal Finger to Nose and Heel to Naylor <Coy Whitaker - Last Filed: 03/14/19 03:58> - Vital Signs Last Vital Signs Temp Pulse Resp BP Pulse Ox 97.4 F L 67 18 143/88 99 03/17/19 08:17 03/17/19 08:17 03/17/19 08:21 03/17/19 08:17 03/17/19 08:21 <Tristian Vang - Last Filed: 03/18/19 01:00> ED Treatment Course - LABORATORY CBC & Chemistry Diagram: 03/14/19 01:15 03/14/19 01:15 <Coy Whitaker - Last Filed: 03/14/19 03:58> - LABORATORY CBC & Chemistry Diagram: 03/15/19 05:30 03/15/19 05:30 - ADDITIONAL ORDERS Additional order review: 03/14/19 03/14/19 01:44 01:15 RBC 4.27 MCV 90.7 MCHC 32.5 RDW 13.6 MPV 8.7 Neutrophils % 47.0 Lymphocytes % 43.3 H D Monocytes % 6.3 Eosinophils % 2.6 Basophils % 0.8 POC Glucometer 229 - Medications Given in the ED: ED Medications Discontinued Medications Generic Name Dose Route Start Last Admin Trade Name Freq PRN Reason Stop Dose Admin Acetaminophen 1,000 mg 03/13/19 22:28 03/14/19 01:51 Ofirmev Injection - IVPB 03/13/19 22:29 1,000 mg ONCE ONE Administration Apixaban 5 mg 03/14/19 10:00 03/14/19 09:54 Eliquis - PO 5 mg BID OLAYINKA Administration Aspirin 81 mg 03/14/19 10:00 03/14/19 09:54 Asa - PO 81 mg DAILY OLAYINKA Administration Atorvastatin Calcium 40 mg 03/14/19 22:00 03/16/19 21:57 Lipitor - PO 40 mg HS OLAYINKA Administration Dipyridamole/Aspirin 1 combo 03/17/19 10:00 03/17/19 11:21 Aggrenox - PO 1 combo BID OLAYINKA Administration Gabapentin 100 mg 03/14/19 10:00 03/14/19 09:54 Neurontin - PO 100 mg BID OLAYINKA Administration Gabapentin 300 mg 03/14/19 22:00 03/14/19 23:22 Neurontin - PO 300 mg BID OLAYINKA Administration Gabapentin 300 mg 03/15/19 10:00 03/17/19 09:02 Neurontin - PO 300 mg BID OLAYINKA Administration Insulin Aspart 1 vial 03/14/19 07:00 03/14/19 23:21 Novolog Vial Sliding Scale - SQ Not Given [facility] Protocol Insulin Aspart 1 vial 03/15/19 07:00 03/17/19 11:17 Novolog Vial Sliding Scale - SQ 8 units ACHS [facility] Administration Protocol Insulin Detemir 10 units 03/15/19 07:00 03/15/19 06:08 Levemir Vial SQ 10 units AM OLAYINKA Administration Insulin Detemir 15 units 03/16/19 07:00 03/17/19 07:04 Levemir Vial SQ 15 unit AM OLAYINKA Administration Levetiracetam 500 mg 03/14/19 10:00 03/14/19 23:22 Keppra - PO 500 mg BID OLAYIKNA Administration Levetiracetam 500 mg 03/15/19 10:00 03/17/19 09:02 Keppra - PO 500 mg BID OLAYINKA Administration Losartan Potassium 50 mg 03/14/19 10:00 03/14/19 09:54 Cozaar - PO 50 mg DAILY OLAYINKA Administration Losartan Potassium 50 mg 03/15/19 10:00 03/17/19 09:02 Cozaar - PO 50 mg DAILY OLAYINKA Administration Melatonin 5 mg 03/16/19 21:23 03/16/19 21:56 Melatonin PO 03/16/19 21:24 5 mg ONCE ONE Administration Metoprolol Succinate 25 mg 03/14/19 10:00 03/14/19 09:54 Toprol Xl - PO 25 mg DAILY OLAYINKA Administration Metoprolol Succinate 25 mg 03/15/19 10:00 03/17/19 09:02 Toprol Xl - PO 25 mg DAILY OLAYINKA Administration <Tristian Vang - Last Filed: 03/18/19 01:00> Medical Decision Making - Medical Decision Making 03/13/19 23:56 The patient is a 78 year old female with a history of HTN, HLD, DM, CVA, CAD, Seizures who presents for evaluation of headache, numbness, and fall. The patient appears clinically well on exam. Given the patient's history and physical exam, we will obtain cbc, cmp, troponin, coags, ekg, head and cervical spine CT to evaluate further. We will treat with tylenol and continue to monitor and reassess while here in the ED. 03/14/19 03:58 CBC, cmp, troponin were unremarkable. Head and cervical spine CT demonstrated no acute pathology as preliminarily read by our engagement liaison radiologist. Given the patient's fall with head trauma on as well as her new numbness, she will require observation admission for further monitoring and management. <Coy Whitaker - Last Filed: 03/14/19 03:58> Discharge - Discharge Information Problems reviewed: Yes - Admission Yes <Coy Whitaker - Last Filed: 03/14/19 03:58> <Tristian Vang - Last Filed: 03/18/19 01:00> - Discharge Information Clinical Impression/Diagnosis: Fall, Numbness Condition: Stable Disposition: VNS/HOME HEALTH CARE
--- NOTE | 2019-03-13 22:27 | PDOC ---
Attending Attestation - Resident Resident Name: Coy Whitaker - ED Attending Attestation I have performed the following: I have examined & evaluated the patient, The case was reviewed & discussed with the resident, I agree w/resident's findings & plan, Exceptions are as noted - HPI HPI: 03/18/19 01:05 78F PMH DM, HTN, HLD, CAD, Seizure, CVA with residual LUE weakness with R sided headache a/w dizziness, upper extremity tingling and fall. Headache started earlier today, right sided. She states she has had CHEEMA in past that had been evaluated via MRI without acute pathology. But prior HAs were not a/w falls. - Physicial Exam PE: 03/18/19 01:10 Agree with exam as documented by resident - Medical Decision Making 03/18/19 01:14 Patient presents with Active complaints of headache, paresthesias, fall Unclear chronicity of paresthesias, states LUE weakness is chronic consider primary CHEEMA, cva, ich, consider mechanical fall, syncope, arrythmia consider electrolyte derangement, ?paresthesias 2/2 dm neuropathy f/u labs, trop, ekg, ct b, cs imaging w/o acute pathology on AC and here for trauma, will follow repeat imaging admit high risk patient for further investigation
[2019-03-13] MEDS ORDERED: ACETAMINOPHEN 1000 MG/100 ML VIAL (NON FORMULARY) IVPB ONE (22:28)
[2019-03-14] MEDS ORDERED: ACETAMINOPHEN INJECTION 100 ML IVPB ONE (01:48)
[2019-03-14 01:54] LABS: BASO % 0.8 % (0-2.0); EOS % 2.6 % (0-4.5); HEMATOCRIT 38.7 % (32.4-45.2); HEMOGLOBIN 12.6 GM/dL (10.7-15.3); LYMPH % 43.3 % (8-40); MCH 29.5 pg (25.7-33.7); MCHC 32.5 g/dl (32.0-36.0); MEAN CELL VOLUME 90.7 fl (80-96); MEAN PLT VOLUME 8.7 fl (7.5-11.1); MONO % 6.3 % (3.8-10.2); PLATELET COUNT 240 K/MM3 (134-434); RBC 4.27 M/mm3 (3.60-5.2); RDW 13.6 % (11.6-15.6); WHITE BLOOD COUNT 4.8 K/mm3 (4.0-10.0)
[2019-03-14 02:10] LABS: INR 1.03 (0.83-1.09); PROTHROMBIN TIME (PATIENT) 12.2 SEC (9.7-13.0)
[2019-03-14 02:20] LABS: ALBUMIN 3.9 g/dl (3.4-5.0); BILIRUBIN,TOTAL 0.3 mg/dL (0.2-1); BLOOD UREA NITROGEN 19.1 mg/dL (7-18); CALCIUM 9.4 mg/dL (8.5-10.1); CREATININE 1.2 mg/dL (0.55-1.3); POTASSIUM 4.2 mmol/L (3.5-5.1)
--- NOTE | 2019-03-14 05:43 | HP ---
CHIEF COMPLAINT: Fall on Eliquis PCP: Dr. Sparks HISTORY OF PRESENT ILLNESS: Pt. is a 78 y.o. Turkish speaking F w/ PMHx. of HTN , HLD, uncontrolled DM with peripheral neuropathy, CVA with residual left sided weakness, bilateral LE DVT (on eliquis), and seizures presenting to the ED after a fall at home (questionable if Pt. fell 2x as Pt. was groggy from waking her up at 4:30 AM). Pt. states that she felt dizzy before the fall and that she has chronic numbness,tingling and tremors in her hands. Pt. states that she fell and hit the front of her head and her right shoulder. Pt. denies losing consciousness, chest pain, or lower extremity weakness more than usual prior to the fall. Pt. was recently discharged on newly added Insulin for A1c of 15.5. Pt.s Glucose on arrival was 211. Pt. states that she has home health aide for 4 hours a day but that her daughter is trying to get more hours for her. Pt. is highly resistant to going to residential and understands that she can fall at home and "." Pt. endorses headache, R. neck pain, and R. shoulder tenderness without decrease range of motion. Pt. denies any current chest pain, fever, shortness of breath, abdominal pain, or any other concerning symptoms. ER course was notable for: (1)Head CT, CSpine CT (2)CBC, CMP, Tylenol (3) Recent Travel: none PAST MEDICAL HISTORY: as described above PAST SURGICAL HISTORY: knee replacement Social History: per daughter Smoking: none smoker Alcohol: prior history of heavy drinking. per daughter she continues to drink but not as heavy as before. Drugs: Allergies shellfish derived Allergy (Verified 03/04/19 13:45) Shellfish Allergy (Uncoded 03/04/19 13:45) HOME MEDICATIONS: Home Medications Medication Instructions Recorded Aspirin [ASA -] 81 mg PO DAILY 10/30/11 Losartan Potassium 50 mg PO DAILY 05/24/18 Metformin HCl [Glucophage] 1,000 mg PO BID 05/24/18 Alendronate Sodium [Fosamax] 1 tab WEEKLY 03/04/19 Apixaban [Eliquis] 5 mg PO BID 03/04/19 Gabapentin 100 mg PO BID 03/04/19 Metoprolol Succinate [Toprol Xl] 25 mg PO DAILY 03/04/19 levETIRAcetam [Keppra -] 500 mg PO DAILY 03/05/19 Insulin Detemir [Levemir Flextouch] 15 unit SQ HS #1 insuln.pen 03/06/19 REVIEW OF SYSTEMS As above PHYSICAL EXAMINATION Vital Signs - 24 hr 03/13/19 22:20 Temperature 97.8 F Pulse Rate 60 Respiratory 22 H Rate Blood Pressure 150/72 O2 Sat by Pulse 100 Oximetry (%) GENERAL: Awake, alert, and AOx2, anxious HEAD: Normal with no signs of gross trauma, Frontal bone tenderness. EYES: Pupils equal, round and reactive to light, extraocular movements intact, sclera anicteric, conjunctiva clear. No lid lag. EARS, NOSE, THROAT: oropharynx clear without exudates. Moist mucous membranes. NECK: Normal range of motion, supple without JVD, or masses. LUNGS: Breath sounds equal, clear to auscultation bilaterally. No wheezes, and no crackles. No accessory muscle use. HEART: Regular rate and rhythm, normal S1 and S2 without murmur, rub or gallop. ABDOMEN: Soft, nontender, not distended, normoactive bowel sounds, no guarding, no rebound, no masses. No hepatomegaly or splenomegaly. MUSCULOSKELETAL: R. Shoulder tenderness UPPER EXTREMITIES: 2+ pulses, warm, well-perfused. No cyanosis. No clubbing. No peripheral edema. ROM intact LOWER EXTREMITIES: 2+ pulses, warm, well-perfused. No calf tenderness. 1+ edema NEUROLOGICAL: Cranial nerves II-XII intact. Normal speech. normal sensation globally, 5/5 strength globally except for LUE which was 3/5. PSYCHIATRIC: Cooperative. Good eye contact. Appropriate mood and affect. SKIN: Warm, dry, normal turgor, no rashes or lesions noted, normal capillary refill. Laboratory Results - last 24 hr 03/14/19 03/14/19 03/14/19 01:15 01:15 01:15 WBC 4.8 RBC 4.27 Hgb 12.6 Hct 38.7 MCV 90.7 MCH 29.5 MCHC 32.5 RDW 13.6 Plt Count 240 MPV 8.7 Absolute Neuts (auto) 2.3 Neutrophils % 47.0 Lymphocytes % 43.3 H D Monocytes % 6.3 Eosinophils % 2.6 Basophils % 0.8 Nucleated RBC % 0 PT with INR INR PTT (Actin FS) 34.9 Sodium Potassium Chloride Carbon Dioxide Anion Gap BUN Creatinine Est GFR (CKD-EPI)AfAm Est GFR (CKD-EPI)NonAf POC Glucometer Random Glucose Calcium Total Bilirubin AST ALT Alkaline Phosphatase Creatine Kinase 54 Troponin I < 0.02 Total Protein Albumin 03/14/19 03/14/19 03/14/19 01:15 01:15 01:44 WBC RBC Hgb Hct MCV MCH MCHC RDW Plt Count MPV Absolute Neuts (auto) Neutrophils % Lymphocytes % Monocytes % Eosinophils % Basophils % Nucleated RBC % PT with INR 12.20 INR 1.03 PTT (Actin FS) Sodium 139 Potassium 4.2 Chloride 106 Carbon Dioxide 28 Anion Gap 5 L BUN 19.1 H Creatinine 1.2 Est GFR (CKD-EPI)AfAm 50.84 Est GFR (CKD-EPI)NonAf 43.86 POC Glucometer 229 Random Glucose 211 H Calcium 9.4 Total Bilirubin 0.3 AST 16 ALT 23 Alkaline Phosphatase 71 Creatine Kinase Troponin I Total Protein 7.0 Albumin 3.9 ASSESSMENT/PLAN: Pt. is a 78 y.o. Turkish speaking F w/ PMHx. of HTN, HLD, uncontrolled DM with peripheral neuropathy, CVA with residual left sided weakness, bilateral LE DVT ( on eliquis), and seizures presenting to the ED after a fall at home. #Syncope Pt. had recent Echo, will not repeat (echo with normal LV function, size, thickness, normal EF, trace to mild mitral and tricuspid regurg, consistent with poor LV compliance) Hx. of multiple falls 2/2 b/l upper extremity neuropathy f/u Rpt. Head CT f/u Neurology Consult as Pt. was referred on last discharge. Pt. did not follow up yet. #NIDDM w/ Peripheral Neuropathy c/w home medications hold PO medications BGM ACHS ISS ACHS PT last A1c: 15.5 #HTN resume home meds #Seizure disorder c/w keppra 500 Daily? Confirm #DVT Ppx. c/w Eliquis as Pt. has Hx. of B/l DVTs, and CVA, we determined that the risk of holding was greater than the risk of a bleed as the initial Head CT was negative , stable hemoglobin, no obvious bleeding source on Head /CSpine CT or on physical exam #FEN no standing fluids, encourage PO intake monitor electrolytes and replete as needed #Dispo monitor on Med-surg Visit type - Emergency Visit Emergency Visit: Yes ED Registration Date: 03/14/19 Care time: The patient presented to the Emergency Department on the above date and was hospitalized for further evaluation of their emergent condition. - New Patient This patient is new to me today: Yes Date on this admission: 03/14/19 - Critical Care Critical Care patient: No ATTENDING PHYSICIAN STATEMENT I saw and evaluated the patient. I reviewed the resident's note and discussed the case with the resident. I agree with the resident's findings and plan as documented. SUBJECTIVE: OBJECTIVE: ASSESSMENT AND PLAN:
--- NOTE | 2019-03-14 05:46 | PN ---
Teaching Attending Note Name of Resident: Jasmeet Marie ATTENDING PHYSICIAN STATEMENT I saw and evaluated the patient. I reviewed the resident's note and discussed the case with the resident. I agree with the resident's findings and plan as documented. SUBJECTIVE: The patient is a 78 year old female with a history of HTN, HLD, DM, CVA ( residual right arm weakness), Peripheral neuropathy, CAD, Seizures who presents for evaluation of headache, numbness, and fall. The patient reports severe right sided headache that acutely began today. She states that she has been experiencing dizziness and had two falls today with head trauma prompting her presentation to the ER for further evaluation. She notes associated numbness and tingling, in her hands bilaterally as well. Uses a cane and may not be grasping the cane properly in view of neuropathy. She notes that she has had headache in the past with negative MRI but states that her headache and numbness are new today. She otherwise denies fevers, chills, SOB, chest pain, nausea, vomiting, abdominal pain, weakness, or changes with urination or bowel movements. Denies tobacco, alcohol or illicit drug use. OBJECTIVE: Alert and not orthostatic Vital Signs Period Temp Pulse Resp BP Sys/Rey Pulse Ox Last 24 Hr 97.8 F 60 22 150/72 100 HEENT: No Jaundice, eye redness or discharge, PERRLA, EOMI. Normocephalic, atraumatic. External ears are normal and hearing is grossly intact. No nasal discharge. Neck: Supple, nontender. No palpable adenopathy or thyromegaly. No JVD Chest: Good effort. Clear to auscultation and percussion. Heart: Regular. No S3, rub or murmur Abdomen: Not distended, soft, nontender and no HSM. No rebound or guarding. Normal bowel sounds. Ext: Peripheral pulses intact. No leg edema. Skin: Warm and dry. No petechiae, rash or ecchymosis. Neuro: Alert. Oriented x3. CN 2-12 grossly intact. Sensation grossly intact in all four extremities; right arm paresis. Psych: Appropriate mood and affect. Good insight. Home Medications Medication Instructions Recorded Aspirin [ASA -] 81 mg PO DAILY 10/30/11 Losartan Potassium 50 mg PO DAILY 05/24/18 Metformin HCl [Glucophage] 1,000 mg PO BID 05/24/18 Alendronate Sodium [Fosamax] 1 tab WEEKLY 03/04/19 Apixaban [Eliquis] 5 mg PO BID 03/04/19 Gabapentin 100 mg PO BID 03/04/19 Metoprolol Succinate [Toprol Xl] 25 mg PO DAILY 03/04/19 levETIRAcetam [Keppra -] 500 mg PO DAILY 03/05/19 Insulin Detemir [Levemir Flextouch] 15 unit SQ HS #1 insuln.pen 03/06/19 Abnormal Lab Results 03/14/19 03/14/19 01:15 01:15 Lymphocytes % 43.3 H D Anion Gap 5 L BUN 19.1 H Random Glucose 211 H ASSESSMENT AND PLAN: 1. Fall - No obvious cause - may be related to peripheral neuropathy. No acute abnormality noted on head CT or C spine CT. EKG is pending. Will consult neurology for guidance on further workup. Consult PT. Do neurochecks q 2 hours and implement fall and seizure precautions. Repeat head CT in 24 hours in view of Eliquis therapy. Check Keppra level. Will continue comprehensive care for all of patients comorbid conditions. 2. DM Uncontrolled DM. For now, we will hold the home diabetes drugs and implement sliding scale insulin regimen. Provide comprehensive diabetes care with patient teaching and counseling about the importance of adherence to prescribed diabetes regimen, euglycemia, eye care and foot care. 3. Hypertension - Restart suitable outpatient antihypertensive drugs when clinically appropriate. Revise regimen to ensure [id number] excellent BP control and psychosocial rehabilitation counselor patient on the injurious effects of uncontrolled hypertension. Nonpharmacologic measures to control hypertension like weight loss , salt restriction and exercise discussed. Importance of adherence to treatment regimen and attainment of normotension emphasized. 4. DVT prophylaxis - On Eliquis 5. Advance directives - Full code
[2019-03-14] MEDS ORDERED: ACETAMINOPHEN 325 MG TABLET (FP) PO PRN (07:29)
[2019-03-14] MEDS: INSULIN SLIDING SCALE (NOVOLOG) 1 VIAL SQ SCH ×4 (08:46→23:21)
--- NOTE | 2019-03-14 09:01 | CONSULT ---
Consult - text type - Consultation Consultation Note: Neurology CHIEF COMPLAINT: Fall on Eliquis PCP: Dr. Sparks HISTORY OF PRESENT ILLNESS: Pt. is a 78 y.o. Kenyan speaking F w/ PMHx. of HTN , HLD, uncontrolled DM with peripheral neuropathy, CVA with residual left sided weakness, bilateral LE DVT (on eliquis), and seizures presenting to the ED after a fall at home (questionable if Pt. fell 2x as Pt. was groggy from waking her up at 4:30 AM the morning of admission). Pt. stated that she felt dizzy before the fall and that she has chronic numbness,tingling and tremors in her hands. Pt. stated that she fell and hit the front of her head and her right shoulder. Pt. denies losing consciousness, chest pain, or lower extremity weakness more than usual prior to the fall. Pt. was recently discharged on newly added Insulin for A1c of 15.5. Pt.s Glucose on arrival was 211. Pt. stated that she has home health aide for 4 hours a day but that her daughter is trying to get more hours for her. Patient with wide range of symptoms, most of them are chronic, noncontrast head CT rreviewed along with CT cervical spine, no acute changes. atient complained about neuropathic discomfort and likely due to underlying diabetes. Occasional tremors may also be associated with glycemic changes No evidence of new or acute seizure, is on Keppra at this time. PAST MEDICAL HISTORY: as above PAST SURGICAL HISTORY: knee replacement Social History: per daughter Smoking: none smoker Alcohol: prior history of heavy drinking. per daughter she continues to drink but not as heavy as before. Drugs: Family: HYTN Allergies shellfish derived Allergy (Verified 03/04/19 13:45) Shellfish Allergy (Uncoded 03/04/19 13:45) HOME MEDICATIONS: Home Medications Medication Instructions Recorded Aspirin [ASA -] 81 mg PO DAILY 10/30/11 Losartan Potassium 50 mg PO DAILY 05/24/18 Metformin HCl [Glucophage] 1,000 mg PO BID 05/24/18 Alendronate Sodium [Fosamax] 1 tab WEEKLY 03/04/19 Apixaban [Eliquis] 5 mg PO BID 03/04/19 Gabapentin 100 mg PO BID 03/04/19 Metoprolol Succinate [Toprol Xl] 25 mg PO DAILY 03/04/19 levETIRAcetam [Keppra -] 500 mg PO DAILY 03/05/19 Insulin Detemir [Levemir Flextouch] 15 unit SQ HS #1 insuln.pen 03/06/19 REVIEW OF SYSTEMS REVIEW OF SYSTEMS CONSTITUTIONAL: Absent: fever, chills, diaphoresis, + generalized weakness, malaise HEENT: Absent: rhinorrhea, nasal congestion, throat pain, throat swelling, difficulty swallowing, mouth swelling, ear pain, eye pain, visual changes CARDIOVASCULAR: Absent: chest pain, syncope, palpitations, irregular heart rate, lightheadedness , peripheral edema RESPIRATORY: Absent: cough, shortness of breath, dyspnea with exertion, orthopnea, wheezing, stridor, hemoptysis GASTROINTESTINAL: Absent: abdominal pain, abdominal distension, nausea GENITOURINARY: Absent: dysuria, frequency, urgency, MUSCULOSKELETAL: Absent: myalgia, SKIN: Absent: rash, itching, pallor HEMATOLOGIC/IMMUNOLOGIC: Absent: easy bleeding, easy bruising, lymphadenopathy, frequent infections ENDOCRINE: Absent: unexplained weight gain, unexplained weight loss, heat intolerance, cold intolerance NEUROLOGIC: Absent: headache, focal weakness or paresthesias, dizziness, seizure, PSYCHIATRIC: Absent: anxiety, depression, suicidal or homicidal ideation, hallucinations. PHYSICAL EXAMINATION Vital Signs - 24 hr 03/13/19 22:20 Temperature 97.8 F Pulse Rate 60 Respiratory 22 H Rate Blood Pressure 150/72 O2 Sat by Pulse 100 Oximetry (%) GENERAL: Awake, alert, and AOx2, anxious HEAD: Normal with no signs of gross trauma, Frontal bone tenderness. EYES: Pupils equal, round and reactive to light, extraocular movements intact, sclera anicteric, conjunctiva clear. No lid lag. EARS, NOSE, THROAT: oropharynx clear without exudates. Moist mucous membranes. NECK: Normal range of motion, supple without JVD, or masses. LUNGS: Breath sounds equal, clear to auscultation bilaterally. No wheezes, and no crackles. No accessory muscle use. HEART: Regular rate and rhythm, normal S1 and S2 without murmur, rub or gallop. ABDOMEN: Soft, nontender, not distended, normoactive bowel sounds, no guarding, no rebound, no masses. No hepatomegaly or splenomegaly. MUSCULOSKELETAL: R. Shoulder tenderness UPPER EXTREMITIES: 2+ pulses, warm, well-perfused. No cyanosis. No clubbing. No peripheral edema. ROM intact LOWER EXTREMITIES: 2+ pulses, warm, well-perfused. No calf tenderness. 1+ edema NEUROLOGICAL: Cranial nerves II-XII intact. Normal speech. normal sensation globally, 5/5 strength globally except for LUE which was 3/5. PSYCHIATRIC: Cooperative. Good eye contact. Appropriate mood and affect. SKIN: Warm, dry, normal turgor, no rashes or lesions noted, normal capillary refill. Laboratory Results - last 24 hr 03/14/19 03/14/19 03/14/19 01:15 01:15 01:15 WBC 4.8 RBC 4.27 Hgb 12.6 Hct 38.7 MCV 90.7 MCH 29.5 MCHC 32.5 RDW 13.6 Plt Count 240 MPV 8.7 Absolute Neuts (auto) 2.3 Neutrophils % 47.0 Lymphocytes % 43.3 H D Monocytes % 6.3 Eosinophils % 2.6 Basophils % 0.8 Nucleated RBC % 0 PT with INR INR PTT (Actin FS) 34.9 Sodium Potassium Chloride Carbon Dioxide Anion Gap BUN Creatinine Est GFR (CKD-EPI)AfAm Est GFR (CKD-EPI)NonAf POC Glucometer Random Glucose Calcium Total Bilirubin AST ALT Alkaline Phosphatase Creatine Kinase 54 Troponin I < 0.02 Total Protein Albumin 03/14/19 03/14/19 03/14/19 01:15 01:15 01:44 WBC RBC Hgb Hct MCV MCH MCHC RDW Plt Count MPV Absolute Neuts (auto) Neutrophils % Lymphocytes % Monocytes % Eosinophils % Basophils % Nucleated RBC % PT with INR 12.20 INR 1.03 PTT (Actin FS) Sodium 139 Potassium 4.2 Chloride 106 Carbon Dioxide 28 Anion Gap 5 L BUN 19.1 H Creatinine 1.2 Est GFR (CKD-EPI)AfAm 50.84 Est GFR (CKD-EPI)NonAf 43.86 POC Glucometer 229 Random Glucose 211 H Calcium 9.4 Total Bilirubin 0.3 AST 16 ALT 23 Alkaline Phosphatase 71 Creatine Kinase Troponin I Total Protein 7.0 Albumin 3.9 ASSESSMENT/PLAN: 78 y.o. Kenyan speaking F w/ PMHx. of HTN, HLD, uncontrolled DM with peripheral neuropathy, CVA with residual left sided weakness, bilateral LE DVT ( on eliquis), and seizures presenting to the ED after a fall at home ( questionable if Pt. fell 2x as Pt. was groggy from waking her up at 4:30 AM the morning of admission). Pt. stated that she felt dizzy before the fall and that she has chronic numbness,tingling and tremors in her hands. Pt. stated that she fell and hit the front of her head and her right shoulder. Pt. denies losing consciousness, chest pain, or lower extremity weakness more than usual prior to the fall. Pt. was recently discharged on newly added Insulin for A1c of 15.5. Pt.s Glucose on arrival was 211. Pt. stated that she has home health aide for 4 hours a day but that her daughter is trying to get more hours for her. Patient with wide range of symptoms, most of them are chronic, noncontrast head CT rreviewed along with CT cervical spine, no acute changes. atient complained about neuropathic discomfort and likely due to underlying diabetes. Occasional tremors may also be associated with glycemic changes No evidence of new or acute seizure, is on Keppra at this time. Would continue the same dose of Keppra , but tighter glycemic control is needed since her last hemoglobin A1c is reportedly 15.5. This can certainly precipitate multiple symptoms that she is experiencing including dizziness, tremor, gait instability. Can increase gabapentin to 300 mg twice a day for improved treatment of neuropathy. Maintain adequate hydration, fall precations, consider short-term rehabilitation if patient amenable. May benefit from assistive device. monitor blood pressure, maintain normotensive range.
[2019-03-14] MEDS: levETIRAcetam 500 MG TABLET (FP) PO SCH ×2 (09:54→23:22)
[2019-03-14] MEDS ORDERED: LOSARTAN POTASSIUM 50 MG TABLET (FP) PO SCH (10:00)
[2019-03-14] MEDS ORDERED: APIXABAN 5 MG TABLET PO SCH (10:00)
[2019-03-14] MEDS ORDERED: ASPIRIN 81 MG CHEWABLE TABLETS PO SCH (10:00)
[2019-03-14] MEDS ORDERED: GABAPENTIN 100 MG CAPSULE (FP) PO SCH ×2 (10:00→22:00)
[2019-03-14] MEDS ORDERED: metoPROLOL SUCCINATE 25 MG TAB.SR.24H (FP) PO SCH (10:00)
[2019-03-14] MEDS ORDERED: levETIRAcetam 500 MG TABLET (FP) PO SCH (10:00)
[2019-03-14 11:32] LABS: HEMATOCRIT 37.7 % (32.4-45.2); HEMOGLOBIN 12.4 GM/dL (10.7-15.3); MEAN PLT VOLUME 9.3 fl (7.5-11.1); PLATELET COUNT 221 K/MM3 (134-434); RBC 4.14 M/mm3 (3.60-5.2); RDW 13.2 % (11.6-15.6); WHITE BLOOD COUNT 4.1 K/mm3 (4.0-10.0)
[2019-03-14 12:06] LABS: BLOOD UREA NITROGEN 16.2 mg/dL (7-18); CREATININE 1.1 mg/dL (0.55-1.3); MAGNESIUM 1.9 mg/dL (1.8-2.4); PHOSPHOROUS 3.7 mg/dL (2.5-4.9); POTASSIUM 4.4 mmol/L (3.5-5.1)
--- NOTE | 2019-03-14 13:44 | EKG ---
Test Reason : Blood Pressure : / mmHG Vent. Rate : 055 BPM Atrial Rate : 055 BPM P-R Int : 192 ms QRS Dur : 070 ms QT Int : 430 ms P-R-T Axes : 062 071 068 degrees QTc Int : 411 ms POOR DATA QUALITY, INTERPRETATION MAY BE ADVERSELY AFFECTED SINUS BRADYCARDIA OTHERWISE NORMAL ECG WHEN COMPARED WITH ECG OF 04-MAR-2019 13:58, T WAVE INVERSION NO LONGER EVIDENT IN ANTERIOR LEADS Confirmed by JUAN J MORAN MD ([id number]) on 03/14/2019 1:43:53 PM Referred By: Confirmed By:JUAN J MORAN MD
--- NOTE | 2019-03-14 14:40 | PN ---
Teaching Attending Note Name of Resident: James Davis ATTENDING PHYSICIAN STATEMENT I saw and evaluated the patient. I reviewed the resident's note and discussed the case with the resident. I agree with the resident's findings and plan as documented with exceptions below. SUBJECTIVE: Patient seen and examined, with assistance of director of email marketing Ishan # [id number], headache earlier now resolved. COnfirms mechanical fall, tripped and fell. left hand paresthesias which are old. States takes insulin 'in morning and at night' . Denies any symptoms and wants to go home. OBJECTIVE: Vital Signs Period Temp Pulse Resp BP Sys/Rey Pulse Ox Last 24 Hr 97.8 F 60-63 18-22 139-150/64-75 100-100 Intake & Output 03/11/19 03/12/19 03/13/19 03/14/19 23:59 23:59 23:59 23:59 Weight 158 lb General: sitting in bed, no acute distress HEENT: PERRL, EOMI Chest: CTAB, no rales or wheezing Abdomen: soft, NT Extremities: no edema, no wrist swelling or erythema Neuro: AAOx3, facial symmetry, tongue midline, speech normal, left hand paresthesias, otherwise non focal exam Home Medications Medication Instructions Recorded Aspirin [ASA -] 81 mg PO DAILY 10/30/11 Losartan Potassium 50 mg PO DAILY 05/24/18 Metformin HCl [Glucophage] 1,000 mg PO BID 05/24/18 Alendronate Sodium [Fosamax] 1 tab WEEKLY 03/04/19 Apixaban [Eliquis] 5 mg PO BID 03/04/19 Metoprolol Succinate [Toprol Xl] 25 mg PO DAILY 03/04/19 levETIRAcetam [Keppra -] 500 mg PO BID 03/05/19 Gabapentin 100 mg PO BID 03/14/19 Insulin Detemir [Levemir Flextouch] 15 unit SQ AM 03/14/19 Active Medications Acetaminophen (Tylenol -) 650 mg PO Q6H PRN PRN Reason: Fever Apixaban (Eliquis -) 5 mg PO BID [facility] Last Admin: 03/14/19 09:54 Dose: 5 mg Aspirin (Asa -) 81 mg PO DAILY [facility] Last Admin: 03/14/19 09:54 Dose: 81 mg Gabapentin (Neurontin -) 300 mg PO BID [facility] Insulin Aspart (Novolog Vial Sliding Scale -) 1 vial SQ ACHS [facility]; Protocol Last Admin: 03/14/19 14:29 Dose: 6 units Insulin Detemir (Levemir Vial) 10 units SQ [facility] Levetiracetam (Keppra -) 500 mg PO BID [facility] Last Admin: 03/14/19 09:54 Dose: 500 mg Losartan Potassium (Cozaar -) 50 mg PO DAILY [facility] Last Admin: 03/14/19 09:54 Dose: 50 mg Metoprolol Succinate (Toprol Xl -) 25 mg PO DAILY [facility] Last Admin: 03/14/19 09:54 Dose: 25 mg Laboratory Results - last 24 hr 03/14/19 03/14/19 03/14/19 01:15 01:15 01:15 WBC 4.8 RBC 4.27 Hgb 12.6 Hct 38.7 MCV 90.7 MCH 29.5 MCHC 32.5 RDW 13.6 Plt Count 240 MPV 8.7 Absolute Neuts (auto) 2.3 Neutrophils % 47.0 Lymphocytes % 43.3 H D Monocytes % 6.3 Eosinophils % 2.6 Basophils % 0.8 Nucleated RBC % 0 PT with INR INR PTT (Actin FS) 34.9 Sodium Potassium Chloride Carbon Dioxide Anion Gap BUN Creatinine Est GFR (CKD-EPI)AfAm Est GFR (CKD-EPI)NonAf POC Glucometer Random Glucose Calcium Phosphorus Magnesium Total Bilirubin AST ALT Alkaline Phosphatase Creatine Kinase 54 Troponin I < 0.02 Total Protein Albumin 03/14/19 03/14/19 03/14/19 01:15 01:15 01:44 WBC RBC Hgb Hct MCV MCH MCHC RDW Plt Count MPV Absolute Neuts (auto) Neutrophils % Lymphocytes % Monocytes % Eosinophils % Basophils % Nucleated RBC % PT with INR 12.20 INR 1.03 PTT (Actin FS) Sodium 139 Potassium 4.2 Chloride 106 Carbon Dioxide 28 Anion Gap 5 L BUN 19.1 H Creatinine 1.2 Est GFR (CKD-EPI)AfAm 50.84 Est GFR (CKD-EPI)NonAf 43.86 POC Glucometer 229 Random Glucose 211 H Calcium 9.4 Phosphorus Magnesium Total Bilirubin 0.3 AST 16 ALT 23 Alkaline Phosphatase 71 Creatine Kinase Troponin I Total Protein 7.0 Albumin 3.9 03/14/19 03/14/19 03/14/19 10:57 10:57 12:47 WBC 4.1 RBC 4.14 Hgb 12.4 Hct 37.7 MCV 91.0 MCH 30.0 MCHC 33.0 RDW 13.2 Plt Count 221 MPV 9.3 Absolute Neuts (auto) Neutrophils % Lymphocytes % Monocytes % Eosinophils % Basophils % Nucleated RBC % PT with INR INR PTT (Actin FS) Sodium 134 L Potassium 4.4 Chloride 101 Carbon Dioxide 28 Anion Gap 5 L BUN 16.2 Creatinine 1.1 Est GFR (CKD-EPI)AfAm 56.48 Est GFR (CKD-EPI)NonAf 48.73 POC Glucometer 283 Random Glucose 303 H Calcium 9.0 Phosphorus 3.7 Magnesium 1.9 Total Bilirubin AST ALT Alkaline Phosphatase Creatine Kinase Troponin I Total Protein Albumin CT brain on admission noted Repeat CT brain with ischemic CVA with petechial haemorrhage/Edema ASSESSMENT AND PLAN: 78 year old female with history of HTN, HLD, DM 2 with peripheral neuropathy, Hx CVA (residual R arm weakness), Bilateral LE DVTs (on Eliquis), SD, s/p right ankle replacement, declined SNF recently, concerns for non compliance with medications, admitted with fall -Fall, patient confirms mechanical fall -Acute ischemic CVA with petechial haemorrhage/Edema -poorly controlled IDDM -Diabetic neuropathy -HTN -HLD -h/o CVA with right arm residual weakness -Bilateral LE DVT on eliquis -S/p Right ankle replacement Plan: Patient confirms mechanical fall, states 'tripped' and insisting on wanting to go home. Repeat CT head with no new trauma concerns however with ?new ischemic CVA with petechial haemorrhage/edema, could have contributed to fall on admission. Discuss with neurology. Hold ASA/Eliquis for now. Statin, lipid panel. MRI brain, MRA head/neck, carotid/2D echo. Close Neuro checks. Neurosurgery eval, NPO till then. Metoprolol/losartan, avoid aggressive blood pressure control. Speech/swallow eval. Patient counseled on correct insulin regimen, concerns for poor compliance especially in the evening. Will change to AM dosing, explained to patient again. dvTPPX SCDs Dispo pending above neurological w/u and clinical course.
--- NOTE | 2019-03-14 15:18 | PN ---
Physical Exam: SUBJECTIVE: Patient seen and examined at the bedside. [facility] Loader Technician Ishan [id number] utilized for translation. Patient stated that her headache and hand pain/tingling had improved. Was very eager to go home. Currently denied cp , sob, abd pain, n/v/c/d, dizziness, lightheadedness, fevers, chills. OBJECTIVE: Vital Signs Period Temp Pulse Resp BP Sys/Rey Pulse Ox Last 24 Hr 97.8 F 60-63 18-22 139-150/64-75 100-100 GENERAL: The patient is awake, alert, and fully oriented, in mild acute distress. HEAD: Normal with no signs of trauma. EYES: PERRL, extraocular movements intact, sclera anicteric, conjunctiva clear. ENT: Oropharynx clear without exudates, moist mucous membranes. LUNGS: Breath sounds equal, clear to auscultation bilaterally, no wheezes, no crackles, no accessory muscle use. HEART: Regular rate and rhythm, S1, S2 without murmur, rub. ABDOMEN: Soft, nontender, nondistended, normoactive bowel sounds, no guarding, no rebound, no masses. EXTREMITIES: 2+ pulses, warm, well-perfused, no edema. NEUROLOGICAL: Cranial nerves II through XII grossly intact. 5/5 muscle strength throughout except for LUE which was 4/5 more proximally. Sensation intact throughout to gross touch. Gait appears normal PSYCH: Anxious mood. SKIN: Warm, dry, normal turgor, no rashes or lesions noted Laboratory Results - last 24 hr 03/14/19 03/14/19 03/14/19 01:15 01:15 01:15 WBC 4.8 RBC 4.27 Hgb 12.6 Hct 38.7 MCV 90.7 MCH 29.5 MCHC 32.5 RDW 13.6 Plt Count 240 MPV 8.7 Absolute Neuts (auto) 2.3 Neutrophils % 47.0 Lymphocytes % 43.3 H D Monocytes % 6.3 Eosinophils % 2.6 Basophils % 0.8 Nucleated RBC % 0 PT with INR INR PTT (Actin FS) 34.9 Sodium Potassium Chloride Carbon Dioxide Anion Gap BUN Creatinine Est GFR (CKD-EPI)AfAm Est GFR (CKD-EPI)NonAf POC Glucometer Random Glucose Calcium Phosphorus Magnesium Total Bilirubin AST ALT Alkaline Phosphatase Creatine Kinase 54 Troponin I < 0.02 Total Protein Albumin 12/27/19 12/27/19 12/27/19 01:15 01:15 01:44 WBC RBC Hgb Hct MCV MCH MCHC RDW Plt Count MPV Absolute Neuts (auto) Neutrophils % Lymphocytes % Monocytes % Eosinophils % Basophils % Nucleated RBC % PT with INR 12.20 INR 1.03 PTT (Actin FS) Sodium 139 Potassium 4.2 Chloride 106 Carbon Dioxide 28 Anion Gap 5 L BUN 19.1 H Creatinine 1.2 Est GFR (CKD-EPI)AfAm 50.84 Est GFR (CKD-EPI)NonAf 43.86 POC Glucometer 229 Random Glucose 211 H Calcium 9.4 Phosphorus Magnesium Total Bilirubin 0.3 AST 16 ALT 23 Alkaline Phosphatase 71 Creatine Kinase Troponin I Total Protein 7.0 Albumin 3.9 03/14/19 03/14/19 03/14/19 10:57 10:57 12:47 WBC 4.1 RBC 4.14 Hgb 12.4 Hct 37.7 MCV 91.0 MCH 30.0 MCHC 33.0 RDW 13.2 Plt Count 221 MPV 9.3 Absolute Neuts (auto) Neutrophils % Lymphocytes % Monocytes % Eosinophils % Basophils % Nucleated RBC % PT with INR INR PTT (Actin FS) Sodium 134 L Potassium 4.4 Chloride 101 Carbon Dioxide 28 Anion Gap 5 L BUN 16.2 Creatinine 1.1 Est GFR (CKD-EPI)AfAm 56.48 Est GFR (CKD-EPI)NonAf 48.73 POC Glucometer 283 Random Glucose 303 H Calcium 9.0 Phosphorus 3.7 Magnesium 1.9 Total Bilirubin AST ALT Alkaline Phosphatase Creatine Kinase Troponin I Total Protein Albumin Active Medications Generic Name Dose Route Start Last Admin Trade Name Skylar PRN Reason Stop Dose Admin Acetaminophen 650 mg 03/14/19 07:29 Tylenol - PO Q6H PRN Fever Apixaban 5 mg 03/14/19 10:00 03/14/19 09:54 Eliquis - PO 5 mg BID [facility] Administration Aspirin 81 mg 03/14/19 10:00 03/14/19 09:54 Asa - PO 81 mg DAILY [facility] Administration Gabapentin 300 mg 03/14/19 22:00 Neurontin - PO BID [facility] Insulin Aspart 1 vial 03/14/19 07:00 03/14/19 13:15 Novolog Vial Sliding Scale - SQ 6 units ACHS [facility] Administration Protocol Insulin Detemir 10 units 03/14/19 22:00 Levemir Vial SQ HS [facility] Levetiracetam 500 mg 03/14/19 10:00 03/14/19 09:54 Keppra - PO 500 mg BID [facility] Administration Losartan Potassium 50 mg 03/14/19 10:00 03/14/19 09:54 Cozaar - PO 50 mg DAILY [facility] Administration Metoprolol Succinate 25 mg 03/14/19 10:00 03/14/19 09:54 Toprol Xl - PO 25 mg DAILY [facility] Administration ASSESSMENT/PLAN: Nya Koo is a 78 year old [place]uneian speaking female with a past medical history of HTN, HLD, uncontrolled DM with peripheral neuropathy, CVA with residual left sided weakness, bilateral LE DVT (on eliquis), and seizures presenting to the ED after a fall at home. Syncope - had recent Echo, will not repeat (echo with normal LV function, size, thickness, normal EF, trace to mild mitral and tricuspid regurg, consistent with poor LV compliance) - hx of multiple falls - admission Head CT with no acute pathology - repeat Head CT noting hyperdense changes R posterior frontal, parietal, occipital lobes involving cortical white matter with effacement of sulci attributed to petechial hemorrhage indicating likely recent tranformation of ischemic stroke - Neurology Consult, recs appreciated Stroke - head CT as above - aspirin and Eliquis held as there is indication of hemorrhagic transformation - Lipitor 40mg, observe for LFT rise and myopathy - carotid dopplers - MRI, MRA of head and neck - echo held due to being recently performed - telemetry monitoring - lipid panel - neurosurgical consult - speech and swallow - PT - HOB elevated, neurochecks, dysphagia precautions, fall precautions - control BP during hemorrhagic conversion stroke, SBP <140 as patent presented with SBP 150 avoiding large BP variation and sudden decreases NIDDM w/ Peripheral Neuropathy - hold PO medications - BGM ACHS - ISS ACHS - PT - last A1c: 15.5 - gabapentin 300mg bid HTN - resume home meds Seizure disorder - Keppra 500 bid DVT Ppx. - SCDs FEN - no standing fluids, encourage PO intake - continue to monitor electrolytes and replete as needed - NPO, pending bedside swallow/speech and swallow consult Dispo - monitor on telemetry Visit type - Emergency Visit Emergency Visit: Yes ED Registration Date: 03/14/19 Care time: The patient presented to the Emergency Department on the above date and was hospitalized for further evaluation of their emergent condition. - New Patient This patient is new to me today: Yes Date on this admission: 03/14/19 - Critical Care Critical Care patient: No
[2019-03-14] MEDS ORDERED: INSULIN (LEVEMIR) 100 UNITS/ML UNITS SQ SCH (22:00)
[2019-03-14] MEDS: ATORVASTATIN CA 40 MG TABLET (FP) PO SCH (23:22)
[2019-03-15 00:12] VITALS: BMI 25.5
[2019-03-15] MEDS ORDERED: ACETAMINOPHEN 325 MG TABLET (FP) PO PRN (00:19)
[2019-03-15] MEDS: INSULIN SLIDING SCALE (NOVOLOG) 1 VIAL SQ SCH ×4 (06:08→21:48)
[2019-03-15] MEDS ORDERED: INSULIN (LEVEMIR) 100 UNITS/ML UNITS SQ SCH (07:00)
[2019-03-15 07:03] LABS: BASO % 0.8 % (0-2.0); EOS % 3.1 % (0-4.5); HEMATOCRIT 33.6 % (32.4-45.2); HEMOGLOBIN 11.2 GM/dL (10.7-15.3); LYMPH % 42.8 % (8-40); MCH 29.7 pg (25.7-33.7); MCHC 33.2 g/dl (32.0-36.0); MEAN CELL VOLUME 89.4 fl (80-96); MEAN PLT VOLUME 9.1 fl (7.5-11.1); MONO % 7.4 % (3.8-10.2); NEUT % 45.9 % (42.8-82.8); PLATELET COUNT 197 K/MM3 (134-434); RBC 3.76 M/mm3 (3.60-5.2); RDW 13.3 % (11.6-15.6)
[2019-03-15 07:31] LABS: ALBUMIN 3.1 g/dl (3.4-5.0); BILIRUBIN,TOTAL 0.4 mg/dL (0.2-1); BLOOD UREA NITROGEN 16.1 mg/dL (7-18); CALCIUM 8.8 mg/dL (8.5-10.1); MAGNESIUM 1.9 mg/dL (1.8-2.4); POTASSIUM 4.3 mmol/L (3.5-5.1); TOT PROT 5.6 g/dl (6.4-8.2)
[2019-03-15] MEDS ORDERED: APIXABAN 5 MG TABLET PO SCH (10:00)
[2019-03-15] MEDS ORDERED: ASPIRIN 81 MG CHEWABLE TABLETS PO SCH (10:00)
[2019-03-15] MEDS: LOSARTAN POTASSIUM 50 MG TABLET (FP) PO SCH (10:48)
[2019-03-15] MEDS: GABAPENTIN 300 MG CAPSULE (FP) PO SCH ×2 (10:49→21:47)
[2019-03-15] MEDS: levETIRAcetam 500 MG TABLET (FP) PO SCH ×2 (10:49→21:47)
[2019-03-15] MEDS: metoPROLOL SUCCINATE 25 MG TAB.SR.24H (FP) PO SCH (10:49)
--- NOTE | 2019-03-15 15:38 | PN ---
Physical Exam: SUBJECTIVE: Patient seen and examined, headache earlier, now improved, no new complaints. OBJECTIVE: Vital Signs Period Temp Pulse Resp BP Sys/Rey Pulse Ox Last 24 Hr 97.2 F-98.3 F 55-66 18-19 115-133/52-66 100-100 Intake & Output 03/12/19 03/13/19 03/14/19 03/15/19 23:59 23:59 23:59 23:59 Intake Total 490 490 Balance 490 490 Weight 158 lb 158 lb 6.4 oz GENERAL: Laboratory Results - last 24 hr 03/14/19 03/15/19 03/15/19 18:08 05:30 05:30 WBC 4.0 RBC 3.76 Hgb 11.2 Hct 33.6 MCV 89.4 MCH 29.7 MCHC 33.2 RDW 13.3 Plt Count 197 MPV 9.1 Absolute Neuts (auto) 1.8 Neutrophils % 45.9 Lymphocytes % 42.8 H Monocytes % 7.4 Eosinophils % 3.1 Basophils % 0.8 Nucleated RBC % 0 Sodium 141 Potassium 4.3 Chloride 108 H Carbon Dioxide 26 Anion Gap 6 L BUN 16.1 Creatinine 1.0 Est GFR (CKD-EPI)AfAm 63.38 Est GFR (CKD-EPI)NonAf 54.68 POC Glucometer 175 Random Glucose 225 H Calcium 8.8 Magnesium 1.9 Total Bilirubin 0.4 AST 14 L ALT 18 Alkaline Phosphatase 59 Total Protein 5.6 L Albumin 3.1 L Triglycerides 103 Cholesterol 215 H Total LDL Cholesterol 119 H HDL Cholesterol 67 H 03/15/19 03/15/19 05:43 10:18 WBC RBC Hgb Hct MCV MCH MCHC RDW Plt Count MPV Absolute Neuts (auto) Neutrophils % Lymphocytes % Monocytes % Eosinophils % Basophils % Nucleated RBC % Sodium Potassium Chloride Carbon Dioxide Anion Gap BUN Creatinine Est GFR (CKD-EPI)AfAm Est GFR (CKD-EPI)NonAf POC Glucometer 228 68 Random Glucose Calcium Magnesium Total Bilirubin AST ALT Alkaline Phosphatase Total Protein Albumin Triglycerides Cholesterol Total LDL Cholesterol HDL Cholesterol Active Medications Generic Name Dose Route Start Last Admin Trade Name Freq PRN Reason Stop Dose Admin Acetaminophen 650 mg 03/15/19 00:19 Tylenol - PO Q6H PRN Fever Apixaban 5 mg 03/15/19 10:00 Eliquis - PO BID O[facility]INKA Aspirin 81 mg 03/15/19 10:00 Asa - PO DAILY O[facility]A Atorvastatin Calcium 40 mg 03/14/19 22:00 03/14/19 23:22 Lipitor - PO 40 mg HS O[facility]INKA Administration Gabapentin 300 mg 03/15/19 10:00 03/15/19 10:49 Neurontin - PO 300 mg BID [facility] Administration Insulin Aspart 1 vial 03/15/19 07:00 03/15/19 11:56 Novolog Vial Sliding Scale - SQ Not Given ACHS [facility] Protocol Insulin Detemir 10 units 03/15/19 07:00 03/15/19 06:08 Levemir Vial SQ 10 units AM [facility] Administration Levetiracetam 500 mg 03/15/19 10:00 03/15/19 10:49 Keppra - PO 500 mg BID [facility] Administration Losartan Potassium 50 mg 03/15/19 10:00 03/15/19 10:48 Cozaar - PO 50 mg DAILY [facility] Administration Metoprolol Succinate 25 mg 03/15/19 10:00 03/15/19 10:49 Toprol Xl - PO 25 mg DAILY [facility] Administration ASSESSMENT/PLAN: 78 year old female with history of HTN, HLD, DM 2 with peripheral neuropathy, Hx CVA (residual R arm weakness), Bilateral LE DVTs (on Eliquis), SD, s/p right ankle replacement, declined SNF recently, concerns for non compliance with medications, admitted with fall -Fall, patient confirms mechanical fall -Acute right parietal cortica CVA with possible subtle petechial haemorrhage/ Edema -poorly controlled IDDM -Diabetic neuropathy -HTN -HLD -h/o CVA with right arm residual weakness -Bilateral LE DVT on eliquis -S/p Right ankle replacement Plan: Patient confirms mechanical fall, states 'tripped' and insisting on wanting to go home. MRI brain, MRA head/neck noted. CT brain this am ?negative. Discuss with neurology. Hold ASA/Eliquis x 24-48 hours as discussed. Statin, lipid panel. Metoprolol/losartan, avoid aggressive blood pressure control. Speech/swallow eval, cleared bedside screen, advance diet as toelrated. . Patient counseled on correct insulin regimen, concerns for poor compliance especially in the evening. Changed to AM dosing, explained to patient again. dvTPPX SCDs PT eval, Dispo by Sunday pending above w/u if no concerns. Discussed with patient and nursing. Visit type - Emergency Visit Emergency Visit: Yes ED Registration Date: 03/14/19 Care time: The patient presented to the Emergency Department on the above date and was hospitalized for further evaluation of their emergent condition. - New Patient This patient is new to me today: No - Critical Care Critical Care patient: No - Discharge Referral Referred to [facility] No
[2019-03-15] MEDS: ATORVASTATIN CA 40 MG TABLET (FP) PO SCH (21:48)
--- NOTE | 2019-03-15 22:31 | CONSULT ---
Consult - text type - Consultation Consultation Note: NEUROSURGERY CONSULTATION Nya Koo is a 78 year old [place]ian speaking female who presented to the [facility] ED on March 14, 2019 with seizures. She has a history of Right brain CVA in the past and bilateral lower extremity DVT whcih is being treated with Elliquis. The patient reportedly fell at home and is at her Neurological baseline. I saw her in the ED on March 14, 2019 and she was sitting up and eating. She was awake and alert and moved all extremities against gravity. Her speech was fluid in [place]ian and she had no new complaints other than some uncontrolled movement in her Left hand. (not apparent during my examination). CT and MRI demonstrate an acute Right parietal infarct with some petechial hemorrhage. Based upon this exam and clinical picture, I do not feel any acute Neurosurgical intervention is indicated, however, I concur with plans for inpatient admission and further stroke management. 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 Will follow current hospitalization and encourage stroke Neurologist or INR/Cerebrovascular Neurosurgeon to follow the incidental aneurysm after discharge. If assistance is required in locating such a physician , I am willing to assist.
[2019-03-16] MEDS: INSULIN SLIDING SCALE (NOVOLOG) 1 VIAL SQ SCH ×4 (06:23→21:57)
[2019-03-16] MEDS: INSULIN (LEVEMIR) 100 UNITS/ML UNITS SQ SCH (06:23)
--- NOTE | 2019-03-16 07:41 | PN ---
Teaching Attending Note Name of Resident: Kirstie Kya ATTENDING PHYSICIAN STATEMENT I saw and evaluated the patient. I reviewed the resident's note and discussed the case with the resident. I agree with the resident's findings and plan as documented with exceptions below. SUBJECTIVE: Patient seen and examined. No complaints, eager to go home. OBJECTIVE: Vital Signs Period Temp Pulse Resp BP Sys/Rey Pulse Ox Last 24 Hr 97.5 F-98.7 F 53-62 18-20 113-122/65-72 98-100 Intake & Output 03/13/19 03/14/19 03/15/19 03/16/19 23:59 23:59 23:59 23:59 Intake Total 490 980 480 Balance 490 980 480 Weight 158 lb 158 lb 6.4 oz General: lying in bed, no acute distress Neck; Soft, supple, no JVD Chest: CTAB, no rales or wheezing Abdomen:Soft, NT, ND Extremities: no edema neuro: Unchanged, no new sensory or motor deficits Home Medications Medication Instructions Recorded Aspirin [ASA -] 81 mg PO DAILY 10/30/11 Losartan Potassium 50 mg PO DAILY 05/24/18 Metformin HCl [Glucophage] 1,000 mg PO BID 05/24/18 Alendronate Sodium [Fosamax] 1 tab WEEKLY 03/04/19 Apixaban [Eliquis] 5 mg PO BID 03/04/19 Metoprolol Succinate [Toprol Xl] 25 mg PO DAILY 03/04/19 levETIRAcetam [Keppra -] 500 mg PO BID 03/05/19 Gabapentin 100 mg PO BID 03/14/19 Insulin Detemir [Levemir Flextouch] 15 unit SQ AM 03/14/19 Active Medications Acetaminophen (Tylenol -) 650 mg PO Q6H PRN PRN Reason: Fever Apixaban (Eliquis -) 5 mg PO BID [facility] Aspirin (Asa -) 81 mg PO DAILY O[facility] Atorvastatin Calcium (Lipitor -) 40 mg PO HS [facility] Last Admin: 03/15/19 21:48 Dose: 40 mg Gabapentin (Neurontin -) 300 mg PO BID [facility] Last Admin: 03/15/19 21:47 Dose: 300 mg Insulin Aspart (Novolog Vial Sliding Scale -) 1 vial SQ ACHS [facility]; Protocol Last Admin: 03/16/19 06:23 Dose: Not Given Insulin Detemir (Levemir Vial) 15 units SQ AM [facility] Last Admin: 03/16/19 06:23 Dose: Not Given Levetiracetam (Keppra -) 500 mg PO BID [facility] Last Admin: 03/15/19 21:47 Dose: 500 mg Losartan Potassium (Cozaar -) 50 mg PO DAILY [facility] Last Admin: 03/15/19 10:48 Dose: 50 mg Metoprolol Succinate (Toprol Xl -) 25 mg PO DAILY [facility] Last Admin: 03/15/19 10:49 Dose: 25 mg Laboratory Results - last 24 hr 03/15/19 03/15/19 10:18 16:53 POC Glucometer 68 364 ASSESSMENT AND PLAN: 78 year old female with history of HTN, HLD, DM 2 with peripheral neuropathy, Hx CVA (residual R arm weakness), Bilateral LE DVTs (on Eliquis), SD, s/p right ankle replacement, declined SNF recently, concerns for non compliance with medications, admitted with fall -Fall, patient confirms mechanical fall -Acute right parietal cortical CVA with possible subtle petechial haemorrhage/ Edema -poorly controlled IDDM -Diabetic neuropathy -HTN -HLD -h/o CVA with right arm residual weakness -Bilateral LE DVT on eliquis -S/p Right ankle replacement Plan: Patient confirms mechanical fall, states 'tripped' and insisting on wanting to go home. MRI brain, MRA head/neck noted. Repeat CT head 03/15, ?negative. Neurology input noted, statin/lipid panel Dr. Serrato input appreciated, discussed in detail, recommend that ideal would be to hold AC for 1-2 weeks, but will need to address risk/benefits prior to the same. Repeat Duplex LE neg for DVT. ' Discuss with outpatient provider about detailed indication for AC and address AC per neurology/neurosurgery recommendations. Metoprolol/losartan Speech/swallow eval, cleared bedside screen, advance diet as tolerated. . Patient counseled on correct insulin regimen, concerns for poor compliance especially in the evening. Changed to AM dosing, explained to patient again. dvTPPX SCDs PT eval noted, Dispo plan for dc back home with services pending neurology/neurosurgery input and clinical course. Discussed with patient and nursing in detail, all questions answered.
[2019-03-16] MEDS ORDERED: PT OWN MED DRAWER 7, Y5N ONE (09:29)
[2019-03-16] MEDS: metoPROLOL SUCCINATE 25 MG TAB.SR.24H (FP) PO SCH (09:42)
[2019-03-16] MEDS: LOSARTAN POTASSIUM 50 MG TABLET (FP) PO SCH (09:42)
[2019-03-16] MEDS: GABAPENTIN 300 MG CAPSULE (FP) PO SCH ×2 (09:42→21:56)
[2019-03-16] MEDS: levETIRAcetam 500 MG TABLET (FP) PO SCH ×2 (09:42→21:56)
--- NOTE | 2019-03-16 18:13 | PN ---
Physical Exam: SUBJECTIVE: Patient seen and examined. Stating that she would like to go home and feels that she does not need to stay in the hospital. Explained to the patient why she is in the hospital and why it is not safe for her to leave with [facility]. OBJECTIVE: Vital Signs Period Temp Pulse Resp BP Sys/Rey Pulse Ox Last 24 Hr 97.5 F-98.7 F 53-75 20-20 113-130/56-97 98-98 GENERAL: The patient is awake, alert, and fully oriented, in no acute distress HEAD: Normal with no signs of trauma. EYES: EOMI, no scleral icterus ENT: Oropharynx clear without exudates, moist mucous membranes. LUNGS: Breath sounds equal, clear to auscultation bilaterally, no wheezes, no crackles, no accessory muscle use. HEART: Regular rate and rhythm, S1, S2 without murmur, rub. ABDOMEN: Soft, nontender, nondistended, normoactive bowel sounds, no guarding, no rebound, no masses. EXTREMITIES: 2+ pulses, warm, well-perfused, no edema. NEUROLOGICAL: sensation intact throughout. 5/5 strength upper and lower extremities. no facial droop. PSYCH: Anxious mood. SKIN: Warm, dry, normal turgor, no rashes or lesions noted Laboratory Results - last 24 hr 03/16/19 03/16/19 11:37 16:56 POC Glucometer 302 280 Active Medications Generic Name Dose Route Start Last Admin Trade Name Freq PRN Reason Stop Dose Admin Acetaminophen 650 mg 03/15/19 00:19 Tylenol - PO Q6H PRN Fever Apixaban 5 mg 03/15/19 10:00 Eliquis - PO BID OLAYINKA Aspirin 81 mg 03/15/19 10:00 Asa - PO DAILY OLAYINKA Atorvastatin Calcium 40 mg 03/14/19 22:00 03/15/19 21:48 Lipitor - PO 40 mg HS OLAYINKA Administration Gabapentin 300 mg 03/15/19 10:00 03/16/19 09:42 Neurontin - PO 300 mg BID OLAYINKA Administration Insulin Aspart 1 vial 03/15/19 07:00 03/16/19 17:06 Novolog Vial Sliding Scale - SQ 6 units ACHS OLAYINKA Administration Protocol Insulin Detemir 15 units 03/16/19 07:00 03/16/19 06:23 Levemir Vial SQ Not Given AM OLAYINKA Levetiracetam 500 mg 03/15/19 10:00 03/16/19 09:42 Keppra - PO 500 mg BID OLAYINKA Administration Losartan Potassium 50 mg 03/15/19 10:00 03/16/19 09:42 Cozaar - PO 50 mg DAILY OLAYINKA Administration Metoprolol Succinate 25 mg 03/15/19 10:00 03/16/19 09:42 Toprol Xl - PO 25 mg DAILY OLAYINKA Administration ASSESSMENT/PLAN: 78 year old Bengali speaking female with a past medical history of HTN, HLD, uncontrolled DM with peripheral neuropathy, CVA with residual left sided weakness, bilateral LE DVT (on eliquis), and seizures presenting to the ED after a fall at home. 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 Attenuated appearance of several intrasylvian branches of the right MCA which may be the basis of partial occlusion. - Carotid doppler - no hemodynamically significant stenosis. - Head CT 03/15 - no evidence of intracerebral hemorrhage, mass lesion or midline shift. No evidence of acute infarct - aspirin and Eliquis held as there is indication of hemorrhagic transformation - NSx consulted - no acute intervention needed at this time. Ideally hold chemical AC for 1-2 weeks but will need to address risk/benefits - Lipitor 40mg, observe for LFT rise and myopathy - lipid panel showing elevated cholesterol - speech and swallow - cleared bedside screen - PT - HOB elevated, neurochecks, dysphagia precautions, fall precautions - control BP during hemorrhagic conversion stroke, SBP <140 as patent presented with SBP 150 avoiding large BP variation and sudden decreases NIDDM w/ Peripheral Neuropathy - hold PO medications - BGM ACHS - ISS ACHS - PT - last A1c: 15.5 - gabapentin 300mg bid HTN - resume home meds Seizure disorder - Keppra 500 bid DVT Ppx. - SCDs FEN - no standing fluids, encourage PO intake - continue to monitor electrolytes and replete as needed - Diabetic/Sodium controlled diet Dispo - D/C pending Neurology/Neurosurgery recommendations and clinical improvement Visit type - Emergency Visit Emergency Visit: Yes ED Registration Date: 03/14/19 Care time: The patient presented to the Emergency Department on the above date and was hospitalized for further evaluation of their emergent condition. - New Patient This patient is new to me today: Yes Date on this admission: 03/16/19 - Critical Care Critical Care patient: No ATTENDING PHYSICIAN STATEMENT I saw and evaluated the patient. I reviewed the resident's note and discussed the case with the resident. I agree with the resident's findings and plan as documented. SUBJECTIVE: OBJECTIVE: ASSESSMENT AND PLAN:
[2019-03-16] MEDS ORDERED: MELATONIN 5 MG TABLETS PO ONE (21:23)
[2019-03-16] MEDS: ATORVASTATIN CA 40 MG TABLET (FP) PO SCH (21:57)
[2019-03-16 23:45] VITALS: TEMP 97.4
[2019-03-17] MEDS: INSULIN SLIDING SCALE (NOVOLOG) 1 VIAL SQ SCH ×2 (07:03→11:17)
[2019-03-17] MEDS: INSULIN (LEVEMIR) 100 UNITS/ML UNITS SQ SCH (07:04)
[2019-03-17 08:21] VITALS: BP 143/88; PULSE 67
[2019-03-17] MEDS: GABAPENTIN 300 MG CAPSULE (FP) PO SCH (09:02)
[2019-03-17] MEDS: LOSARTAN POTASSIUM 50 MG TABLET (FP) PO SCH (09:02)
[2019-03-17] MEDS: levETIRAcetam 500 MG TABLET (FP) PO SCH (09:02)
[2019-03-17] MEDS: metoPROLOL SUCCINATE 25 MG TAB.SR.24H (FP) PO SCH (09:02)
--- NOTE | 2019-03-17 09:03 | CONSULT ---
Consult - text type - Consultation Consultation Note: Neurology CHIEF COMPLAINT: Fall on Eliquis PCP: Dr. Sparks HISTORY OF PRESENT ILLNESS: Pt. is a 78 y.o. Slovak speaking F w/ PMHx. of HTN , HLD, uncontrolled DM with peripheral neuropathy, CVA with residual left sided weakness, bilateral LE DVT (on eliquis), and seizures presenting to the ED after a fall at home (questionable if Pt. fell 2x as Pt. was groggy from waking her up at 4:30 AM the morning of admission). Pt. stated that she felt dizzy before the fall and that she has chronic numbness,tingling and tremors in her hands. Pt. stated that she fell and hit the front of her head and her right shoulder. Pt. denies losing consciousness, chest pain, or lower extremity weakness more than usual prior to the fall. Pt. was recently discharged on newly added Insulin for A1c of 15.5. Pt.s Glucose on arrival was 211. Pt. stated that she has home health aide for 4 hours a day but that her daughter is trying to get more hours for her. Patient with wide range of symptoms, most of them are chronic, noncontrast head CT rreviewed along with CT cervical spine, no acute changes. atient complained about neuropathic discomfort and likely due to underlying diabetes. Occasional tremors may also be associated with glycemic changes No evidence of new or acute seizure, is on Keppra at this time. Repeat head CT showed hyperdense region in R parietoccipital area. MRI brain recommended. Hold antiplatelet/AC. Blood pressure control, continue medical optimization and mgmt. Already on Keppra. PAST MEDICAL HISTORY: as above PAST SURGICAL HISTORY: knee replacement Social History: per daughter Smoking: none smoker Alcohol: prior history of heavy drinking. per daughter she continues to drink but not as heavy as before. Drugs: Family: HYTN Allergies shellfish derived Allergy (Verified 03/04/19 13:45) Shellfish Allergy (Uncoded 03/04/19 13:45) Active Medications Acetaminophen (Tylenol -) 650 mg PO Q6H PRN PRN Reason: Fever Atorvastatin Calcium (Lipitor -) 40 mg PO HS OLAYINKA Last Admin: 03/16/19 21:57 Dose: 40 mg Gabapentin (Neurontin -) 300 mg PO BID OLAYINKA Last Admin: 03/16/19 21:56 Dose: 300 mg Insulin Aspart (Novolog Vial Sliding Scale -) 1 vial SQ ACHS [facility]; Protocol Last Admin: 03/16/19 21:57 Dose: 4 units Insulin Detemir (Levemir Vial) 15 units SQ AM [facility] Last Admin: 03/16/19 06:23 Dose: Not Given Levetiracetam (Keppra -) 500 mg PO BID [facility] Last Admin: 03/16/19 21:56 Dose: 500 mg Losartan Potassium (Cozaar -) 50 mg PO DAILY [facility] Last Admin: 03/16/19 09:42 Dose: 50 mg Metoprolol Succinate (Toprol Xl -) 25 mg PO DAILY [facility] Last Admin: 03/16/19 09:42 Dose: 25 mg PHYSICAL EXAMINATION Vital Signs Period Temp Pulse Resp BP Sys/Rey Pulse Ox Last 24 Hr 97.4 F-98.4 F 52-75 18-20 128-143/85-97 99-99 GENERAL: Awake, alert, and AOx2, anxious HEAD: Normal with no signs of gross trauma, Frontal bone tenderness. EYES: Pupils equal, round and reactive to light, extraocular movements intact, sclera anicteric, conjunctiva clear. No lid lag. EARS, NOSE, THROAT: oropharynx clear without exudates. Moist mucous membranes. NECK: Normal range of motion, supple without JVD, or masses. LUNGS: Breath sounds equal, clear to auscultation bilaterally. No wheezes, and no crackles. No accessory muscle use. HEART: Regular rate and rhythm, normal S1 and S2 without murmur, rub or gallop. ABDOMEN: Soft, nontender, not distended, normoactive bowel sounds, no guarding, no rebound, no masses. No hepatomegaly or splenomegaly. MUSCULOSKELETAL: R. Shoulder tenderness UPPER EXTREMITIES: 2+ pulses, warm, well-perfused. No cyanosis. No clubbing. No peripheral edema. ROM intact LOWER EXTREMITIES: 2+ pulses, warm, well-perfused. No calf tenderness. 1+ edema NEUROLOGICAL: Cranial nerves II-XII intact. Normal speech. normal sensation globally, 5/5 strength globally except for LUE which was 3/5. PSYCHIATRIC: Cooperative. Good eye contact. Appropriate mood and affect. SKIN: Warm, dry, normal turgor, no rashes or lesions noted, normal capillary refill. CBCD WBC 4.0 K/mm3 (4.0-10.0) 03/15/19 05:30 RBC 3.76 M/mm3 (3.60-5.2) 03/15/19 05:30 Hgb 11.2 GM/dL (10.7-15.3) 03/15/19 05:30 Hct 33.6 % (32.4-45.2) 03/15/19 05:30 MCV 89.4 fl (80-96) 03/15/19 05:30 MCHC 33.2 g/dl (32.0-36.0) 03/15/19 05:30 RDW 13.3 % (11.6-15.6) 03/15/19 05:30 Plt Count 197 K/MM3 (134-434) 03/15/19 05:30 MPV 9.1 fl (7.5-11.1) 03/15/19 05:30 CMP Sodium 141 mmol/L (136-145) 03/15/19 05:30 Potassium 4.3 mmol/L (3.5-5.1) 03/15/19 05:30 Chloride 108 mmol/L (98-107) H 03/15/19 05:30 Carbon Dioxide 26 mmol/L (21-32) 03/15/19 05:30 Anion Gap 6 MMOL/L (8-16) L 03/15/19 05:30 BUN 16.1 mg/dL (7-18) 03/15/19 05:30 Creatinine 1.0 mg/dL (0.55-1.3) 03/15/19 05:30 Random Glucose 225 mg/dL (74-106) H 03/15/19 05:30 Calcium 8.8 mg/dL (8.5-10.1) 03/15/19 05:30 Total Bilirubin 0.4 mg/dL (0.2-1) 03/15/19 05:30 AST 14 U/L (15-37) L 03/15/19 05:30 ALT 18 U/L (13-61) 03/15/19 05:30 Alkaline Phosphatase 59 U/L (45-117) 03/15/19 05:30 Total Protein 5.6 g/dl (6.4-8.2) L 03/15/19 05:30 Albumin 3.1 g/dl (3.4-5.0) L 03/15/19 05:30 CARDIAC ENZYMES Creatine Kinase 54 U/L (26-192) 03/14/19 01:15 Troponin I < 0.02 ng/ml (0.00-0.05) 03/14/19 01:15 ASSESSMENT/PLAN: 78 y.o. Slovak speaking F w/ PMHx. of HTN, HLD, uncontrolled DM with peripheral neuropathy, CVA with residual left sided weakness, bilateral LE DVT ( on eliquis), and seizures presenting to the ED after a fall at home ( questionable if Pt. fell 2x as Pt. was groggy from waking her up at 4:30 AM the morning of admission). Pt. stated that she felt dizzy before the fall and that she has chronic numbness,tingling and tremors in her hands. Pt. stated that she fell and hit the front of her head and her right shoulder. Pt. denies losing consciousness, chest pain, or lower extremity weakness more than usual prior to the fall. Pt. was recently discharged on newly added Insulin for A1c of 15.5. Pt.s Glucose on arrival was 211. Pt. stated that she has home health aide for 4 hours a day but that her daughter is trying to get more hours for her. Patient with wide range of symptoms, most of them are chronic, noncontrast head CT rreviewed along with CT cervical spine, no acute changes. atient complained about neuropathic discomfort and likely due to underlying diabetes. Occasional tremors may also be associated with glycemic changes No evidence of new or acute seizure, is on Keppra at this time. Would continue the same dose of Keppra , but tighter glycemic control is needed since her last hemoglobin A1c is reportedly 15.5. This can certainly precipitate multiple symptoms that she is experiencing including dizziness, tremor, gait instability. Can increase gabapentin to 300 mg twice a day for improved treatment of neuropathy. Maintain adequate hydration, fall precations, consider short-term rehabilitation if patient amenable. May benefit from assistive device. monitor blood pressure, maintain normotensive range.
--- NOTE | 2019-03-17 09:07 | PN ---
Progress Note (short form) - Note Progress Note: Neurology CHIEF COMPLAINT: Fall on Eliquis PCP: Dr. Sparks HISTORY OF PRESENT ILLNESS: Pt. is a 78 y.o. [place] speaking F w/ PMHx. of HTN , HLD, uncontrolled DM with peripheral neuropathy, CVA with residual left sided weakness, bilateral LE DVT (on eliquis), and seizures presenting to the ED after a fall at home (questionable if Pt. fell 2x as Pt. was groggy from waking her up at 4:30 AM the morning of admission). Pt. stated that she felt dizzy before the fall and that she has chronic numbness,tingling and tremors in her hands. Pt. stated that she fell and hit the front of her head and her right shoulder. Pt. denies losing consciousness, chest pain, or lower extremity weakness more than usual prior to the fall. Pt. was recently discharged on newly added Insulin for A1c of 15.5. Pt.s Glucose on arrival was 211. Pt. stated that she has home health aide for 4 hours a day but that her daughter is trying to get more hours for her. Patient with wide range of symptoms, most of them are chronic, noncontrast head CT reviewed along with CT cervical spine, no acute changes. atient complained about neuropathic discomfort and likely due to underlying diabetes. Occasional tremors may also be associated with glycemic changes. No evidence of new or acute seizure, is on Keppra at this time. Repeat head CT showed hyperdense region in R parietoccipital area hold antiplatelet/AC at this time and patient already on Keppra. Brain MRI completed , acute right parietal corticol infarct with possible subtle trace petechial blood. Carotid doppler completed with no evidence of high-grade extracranial carotid artery stenosis. Brain MRA indicates several intraslyvian branches of right middle cerebral artery which may be on the basis of partial occlusion, also noted 1.3mm anterior communicating artery aneursym. As per neurosurgen, recommendation for repeat Brain MRA in 3 months and no surgical intervention recommendation at this time. Repeat Head ct on 03/15, no acute bleed or fracture noted compared to 03/14. Vascular doppler completed, no acute dvt noted. At this time, since lacunar infarct, would recommended increased antiplatelet to Aggrenox twice a day instead of ASA 81mg which did not pprovide adequate prevention of CVA. Discussed with hospitalist who also spoke to neurosurgeon regarding this. Regarding antiplatelet medication, hospitalist indicated that there is been no evidence ofarrhythmia or atrial fibrillation and that she was previously put on anticoagulation for DVT though lower extremity Dopplers reportedly showed no evidence of DVT and anticoagulation may not be indicated. Active Medications Acetaminophen (Tylenol -) 650 mg PO Q6H PRN PRN Reason: Fever Atorvastatin Calcium (Lipitor -) 40 mg PO HS [facility] Last Admin: 03/16/19 21:57 Dose: 40 mg Gabapentin (Neurontin -) 300 mg PO BID OLAYINKA Last Admin: 03/16/19 21:56 Dose: 300 mg Insulin Aspart (Novolog Vial Sliding Scale -) 1 vial SQ ACHS [facility]; Protocol Last Admin: 03/16/19 21:57 Dose: 4 units Insulin Detemir (Levemir Vial) 15 units SQ AM [facility] Last Admin: 03/16/19 06:23 Dose: Not Given Levetiracetam (Keppra -) 500 mg PO BID [facility] Last Admin: 03/16/19 21:56 Dose: 500 mg Losartan Potassium (Cozaar -) 50 mg PO DAILY [facility] Last Admin: 03/16/19 09:42 Dose: 50 mg Metoprolol Succinate (Toprol Xl -) 25 mg PO DAILY [facility] Last Admin: 03/16/19 09:42 Dose: 25 mg PHYSICAL EXAMINATION Vital Signs Period Temp Pulse Resp BP Sys/Rey Pulse Ox Last 24 Hr 97.4 F-98.4 F 52-75 18-20 128-143/85-97 99-99 GENERAL: Awake, alert, and AOx2, anxious HEAD: Normal with no signs of gross trauma, Frontal bone tenderness. EYES: Pupils equal, round and reactive to light, extraocular movements intact, sclera anicteric, conjunctiva clear. No lid lag. EARS, NOSE, THROAT: oropharynx clear without exudates. Moist mucous membranes. NECK: Normal range of motion, supple without JVD, or masses. LUNGS: Breath sounds equal, clear to auscultation bilaterally. No wheezes, and no crackles. No accessory muscle use. HEART: Regular rate and rhythm, normal S1 and S2 without murmur, rub or gallop. ABDOMEN: Soft, nontender, not distended, normoactive bowel sounds, no guarding, no rebound, no masses. No hepatomegaly or splenomegaly. MUSCULOSKELETAL: R. Shoulder tenderness UPPER EXTREMITIES: 2+ pulses, warm, well-perfused. No cyanosis. No clubbing. No peripheral edema. ROM intact LOWER EXTREMITIES: 2+ pulses, warm, well-perfused. No calf tenderness. 1+ edema NEUROLOGICAL: Cranial nerves II-XII intact. Normal speech. normal sensation globally, 5/5 strength globally except for LUE which was 3/5. PSYCHIATRIC: Cooperative. Good eye contact. Appropriate mood and affect. SKIN: Warm, dry, normal turgor, no rashes or lesions noted, normal capillary refill. CBCD WBC 4.0 K/mm3 (4.0-10.0) 03/15/19 05:30 RBC 3.76 M/mm3 (3.60-5.2) 03/15/19 05:30 Hgb 11.2 GM/dL (10.7-15.3) 03/15/19 05:30 Hct 33.6 % (32.4-45.2) 03/15/19 05:30 MCV 89.4 fl (80-96) 03/15/19 05:30 MCHC 33.2 g/dl (32.0-36.0) 03/15/19 05:30 RDW 13.3 % (11.6-15.6) 03/15/19 05:30 Plt Count 197 K/MM3 (134-434) 03/15/19 05:30 MPV 9.1 fl (7.5-11.1) 03/15/19 05:30 CMP Sodium 141 mmol/L (136-145) 03/15/19 05:30 Potassium 4.3 mmol/L (3.5-5.1) 03/15/19 05:30 Chloride 108 mmol/L (98-107) H 03/15/19 05:30 Carbon Dioxide 26 mmol/L (21-32) 03/15/19 05:30 Anion Gap 6 MMOL/L (8-16) L 03/15/19 05:30 BUN 16.1 mg/dL (7-18) 03/15/19 05:30 Creatinine 1.0 mg/dL (0.55-1.3) 03/15/19 05:30 Random Glucose 225 mg/dL (74-106) H 03/15/19 05:30 Calcium 8.8 mg/dL (8.5-10.1) 03/15/19 05:30 Total Bilirubin 0.4 mg/dL (0.2-1) 03/15/19 05:30 AST 14 U/L (15-37) L 03/15/19 05:30 ALT 18 U/L (13-61) 03/15/19 05:30 Alkaline Phosphatase 59 U/L (45-117) 03/15/19 05:30 Total Protein 5.6 g/dl (6.4-8.2) L 03/15/19 05:30 Albumin 3.1 g/dl (3.4-5.0) L 03/15/19 05:30 CARDIAC ENZYMES Creatine Kinase 54 U/L (26-192) 03/14/19 01:15 Troponin I < 0.02 ng/ml (0.00-0.05) 03/14/19 01:15 ASSESSMENT/PLAN: 78 y.o. [place] speaking F w/ PMHx. of HTN, HLD, uncontrolled DM with peripheral neuropathy, CVA with residual left sided weakness, bilateral LE DVT ( on eliquis), and seizures presenting to the ED after a fall at home ( questionable if Pt. fell 2x as Pt. was groggy from waking her up at 4:30 AM the morning of admission). Pt. stated that she felt dizzy before the fall and that she has chronic numbness,tingling and tremors in her hands. Pt. stated that she fell and hit the front of her head and her right shoulder. Pt. denies losing consciousness, chest pain, or lower extremity weakness more than usual prior to the fall. Pt. was recently discharged on newly added Insulin for A1c of 15.5. Pt.s Glucose on arrival was 211. Pt. stated that she has home health aide for 4 hours a day but that her daughter is trying to get more hours for her. Patient with wide range of symptoms, most of them are chronic, noncontrast head CT reviewed along with CT cervical spine, no acute changes. atient complained about neuropathic discomfort and likely due to underlying diabetes. Occasional tremors may also be associated with glycemic changes. No evidence of new or acute seizure, is on Keppra at this time. Repeat head CT showed hyperdense region in R parietoccipital area hold antiplatelet/AC at this time and patient already on Keppra. Brain MRI completed, acute right parietal corticol infarct with possible subtle trace petechial blood. Carotid doppler completed with no evidence of high-grade extracranial carotid artery stenosis. Brain MRA indicates several intraslyvian branches of right middle cerebral artery which may be on the basis of partial occlusion, also noted 1.3mm anterior communicating artery aneursym. As per neurosurgen, recommendation for repeat Brain MRA in 3 months and no surgical intervention recommendation at this time. Repeat Head ct on 03/15, no acute bleed or fracture noted compared to 03/14. Vascular doppler completed, no acute dvt noted. At this time, since lacunar infarct, would recommended increased antiplatelet to Aggrenox twice a day instead of ASA 81mg which did not pprovide adequate prevention of CVA. Discussed with hospitalist who also spoke to neurosurgeon regarding this. Regarding antiplatelet medication, hospitalist indicated that there is been no evidence ofarrhythmia or atrial fibrillation and that she was previously put on anticoagulation for DVT though lower extremity Dopplers reportedly showed no evidence of DVT and anticoagulation may not be indicated. Maintain adequate hydration, fall precautions, consider short-term rehabilitation if patient amenable. Using cane this AM but ambulating. Fall precautions. Monitor blood pressure, maintain normotensive range.
--- NOTE | 2019-03-17 09:55 | CONSULT ---
Admitting History and Physical - Primary Care Physician PCP: Venus Nice - Admission History of Present Illness: 78 year old Kazakh speaking female with a past medical history of HTN, HLD, uncontrolled DM with peripheral neuropathy, CVA with residual left sided weakness, bilateral LE DVT (on eliquis), multiple falls, and seizures admitted after a fall at home. - Head CT 03/15 - no evidence of intracerebral hemorrhage, mass lesion or midline shift. 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 Attenuated appearance of several intrasylvian branches of the right MCA which may be the basis of partial occlusion. - Carotid doppler - no hemodynamically significant stenosis. Selected Entries 03/16/19 03/16/19 03/16/19 01:00 05:00 09:00 Breakfast Lunch Supper Temperature 97.5 F L 97.8 F 98.7 F 03/16/19 03/16/19 03/16/19 10:34 14:00 19:00 Breakfast 50% Lunch 50% Supper 75% Temperature 98.4 F 97.4 F L 03/17/19 08:17 Breakfast Lunch Supper Temperature 97.4 F L Laboratory Tests 03/15/19 05:30 WBC 4.0 History Source: Patient, Medical Record Limitations to Obtaining History: No Limitations, Language Barrier - Past Medical History Endocrine: Yes: Diabetes Mellitus - Smoking History Smoking history: Never smoked Have you smoked in the past 12 months: No Aproximately how many cigarettes per day: 0 - Alcohol/Substance Use Hx Alcohol Use: No History - Admission Reason For Visit: NUMBNESS,FALL - Diagnostics X-ray: Report Reviewed CT Scan: Report Reviewed MRI: Report Reviewed - General Mental Status: Alert and Oriented, Awake and Alert, Able to Follow Commands Attention: Intact Ability to Follow Directions: Excellent Head/Neck Control: WFL - Hearing Hearing: Impaired, Left Ear Hearing Aide: No Speech Evaluation - Communication Primary Language: VIET[place]ESE Communication: Yes: Within Normal Limits Oral Expression Ability: Yes: No Impairment - Speech Production Able to Make Needs Known: Yes: WNL Intelligibility: Yes: WNL - Speech Characteristics Voice Loudness: Normal Voice Pitch: Yes: Normal Voice Phonatory-based Quality: Yes: Normal Speech Pattern: Normal Speech Clarity: < 100% Nasal Resonance: Normal Articulation: Yes: Precise Rate of Speech: Intact - Language/Auditory Comprehension Follows: Yes: 2 Stage Simple Commands - Language/Verbal Expression Able to Respond to Simple Queries: Yes: WNL Able to Communicate Wants and Needs: Yes: WNL Functional Communication Status: Yes: WNL - Memory/Perception care home Memory: Yes: WNL Short Term Memory: Yes: WNL - Swallow Evaluation/Bedside Assessment Current Nutritional Intake: Regular, Thin Liquids Oral Secretions: Yes: WFL Dentition: Yes: Adequate (Missing dentition posteriorally on bottom.) Facial Symmetry at Rest: Facial Droop Right Facial Symmetry on Retraction: Symmetrical Facial Movement: Controlled Sensation: Normal Against Resistance Opening: Normal Against Resistance Closing: Normal Pucker Lips: Normal Smile: Normal Lingual Movement: Normal, Symmetric Lingual Speed of Movement: Normal Lingual Movement Strgth Against Opposition: Normal Lingual Movement Characteristics: Normal Velopharyngeal Movement: Normal Laryngeal Elevation: WFL Laryngeal Movement: Able to Palpate Rate of Intake: WFL Bolus Size: WFL Labial Seal: WFL Chewing: WFL Oral Prep Time: WFL A-P Transit: WFL Pocketing: None Timing of Swallow: WFL Coughing/Throat Clear: No Change in Voice: No Recommendations - Speech Evaluation, Impression/Plan Impression: Mild right facial at rest. Speech, language,cognition, swallowing intact - Dysphagia Impressions/Plan Swallowing Skills: [facility] Dysphagia Impressions: No Impairment *Silent aspiration: cannot be R/O at bedside Dysphagia Treatment Plan: OOB for meals, OOB for 1 h. after meals - Recommendations Diet Consistency: Regular Medication Administration: Whole with water Liquids: Thin Liquids
[2019-03-17] MEDS ORDERED: ASPIRIN/DIPYRIDAMOLE 25 MG/200 MG CAPSULE PO SCH (10:00)
--- NOTE | 2019-03-17 10:36 | DS ---
Physical Exam: SUBJECTIVE: Patient seen and examined at the bedside. Patient stated that she was feelings better and was very eager to go home. Denied any focal weakness, headaches, cp, sob, abd pain, n/v/c/d, fever, chills, dizziness, lightheadedness , numbness, tingling. OBJECTIVE: Vital Signs Period Temp Pulse Resp BP Sys/Rey Pulse Ox Last 24 Hr 97.4 F-98.4 F 52-75 18-20 128-143/85-97 99-99 PHYSICAL EXAM GENERAL: The patient is awake, alert, and fully oriented, in no acute distress. HEAD: Normal with no signs of trauma. EYES: PERRL, extraocular movements intact, sclera anicteric, conjunctiva clear. ENT: Oropharynx clear without exudates, moist mucous membranes. LUNGS: Breath sounds equal, clear to auscultation bilaterally, no wheezes, no crackles, no accessory muscle use. HEART: Regular rate and rhythm, S1, S2 without murmur, rub. ABDOMEN: Soft, nontender, nondistended, normoactive bowel sounds, no guarding, no rebound, no masses. EXTREMITIES: 2+ pulses, warm, well-perfused, no edema. NEUROLOGICAL: Cranial nerves II through XII grossly intact. 5/5 muscle strength throughout except for LUE which was 4/5 more proximally. Sensation intact throughout to gross touch. PSYCH: Anxious mood. SKIN: Warm, dry, normal turgor, no rashes or lesions noted LABS Laboratory Results - last 24 hr 03/16/19 03/16/19 03/16/19 11:37 16:56 21:51 POC Glucometer 302 280 213 03/17/19 07:50 POC Glucometer 197 HOSPITAL COURSE: Nya Koo is a 78 year old Cook Islander speaking female with a past medical history of HTN, HLD, uncontrolled DM with peripheral neuropathy, CVA with residual left sided weakness, bilateral LE DVT (on eliquis), and seizures admitted after a fall at home. Had Head CT noting hyperdense changes R posterior frontal, parietal, occipital lobes involving cortical white matter with effacement of sulci attributed to petechial hemorrhage indicating likely recent tranformation of ischemic stroke. 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 Attenuated appearance of several intrasylvian branches of the right MCA which may be the basis of partial occlusion. Started on aspirin and to continue taking statin. Neurosurgery was consutled and recommended follow of the anuerysm and defering treatment to primary and neurology team. All AC and anti- platelets were briefly held and then restarted by day of discharge. Patient walked well with physical therapy and did not qualify for rehab. Plan discussed with neurology and neurosurgery and agreed that stroke was likely in setting of medication non-compliance and not medication failure. Agreed to restart AC and aspirin. Patient's PCP office was spoken to and patient had a workup of afib in the past and was on Xarelto at one point and transitioned to Eliquis 2.5mg bid. Patient will continue to take this medication and follow up with her specialists. Patient's home insulin was switched to AM in order ensure that she is taking it in the presence of her home health aide. Patient was explained the importance of adhering to medications and to follow up with all specialists. Patient and family were spoken to at length about compliance with medications and the importance of following up with specialists. Patient to follow up with neurology, neurosurgery, endocrinology, and PCP. Family and patient were spoken to about the plan, were in agreement, and confirmed that they will comply with the instructions given to them. Patient was discharged in stable medical condition. Date of Admission:03/14/19 Date of Discharge: 03/17/19 Minutes to complete discharge: 35 Discharge Summary Problems reviewed: Yes Reason For Visit: NUMBNESS,FALL Current Active Problems Numbness (Chronic) Condition: Stable - Instructions Diet, Activity, Other Instructions: You were admitted because you had a headache and pain in your arm. You were given medications to help you with your pain. It is important to always take your medication and follow up with your doctors for your diabetes and your nerve pain. You had a CT scan of your head and MRI of the brain which did show that you had a stroke. You are advised to start taking Aggrenox, continue taking Lipitor. You are advised to follow up with an snorkelling instructor (hormone doctor). You are advised to follow up with a neurologist (brain doctor). It is incredibly important to take all of your medications as prescribed to you in order to reduce the risk of any further medical problems occuring. MEDICATIONS Continue taking aspirin 81mg START to take atorvastatin 40mg daily. Please continue taking all of your other home medications as prescribed. REFERRALS Please follow up with your primary care doctor, Dr. Main Sparks, within 1 week. Please follow up with the snorkelling instructor, Dr. Judi Kiran, within 1 week. Please follow up with the neurologist, Dr. Jermain Wright, within 1 week. You will need to follow up in 3 months with an MR or CT angiography to monitor for an intracranial (brain) aneurysm that was found. SPECIAL INSTRUCTIONS You are advised to have strength training and physical therapy as you have had falls in the past. You would benefit from a physical therapy evaluation at home as part of your visiting nurse service. The visiting nurse service should assist you with your vital signs, blood glucose measurements, medication administration, and medication education. Make sure to eat a diet that is low in sugar. Please use thin liquids with your diet. It is very important to take all of your medications as they are prescribed to you and to follow up with all of the specialist doctors in order to best manage your medical problems. If you have any further symptoms of chest pain, shortness of breath, fevers, inability to eat, or any other general feelings of unwellness, please call 911 or go to your nearest emergency room. Referrals: Jermain Wright MD [Staff Physician] - Main Sparks MD [Primary Care Provider] - Judi Kiran MD [Staff Physician] - Disposition: VNS/HOME HEALTH CARE - Home Medications Comprehensive Discharge Medication List: Ambulatory Orders Aspirin [ASA -] 81 mg PO DAILY 10/30/11 Losartan Potassium 50 mg PO DAILY 05/24/18 Metformin HCl [Glucophage] 1,000 mg PO BID 05/24/18 Alendronate Sodium [Fosamax] 1 tab WEEKLY 03/04/19 Apixaban [Eliquis] 5 mg PO BID 03/04/19 Metoprolol Succinate [Toprol Xl] 25 mg PO DAILY 03/04/19 levETIRAcetam [Keppra -] 500 mg PO BID 03/05/19 Gabapentin 100 mg PO BID 03/14/19 Insulin Detemir [Levemir Flextouch] 15 unit SQ AM 03/14/19 Problem List - Problems (1) Numbness Code(s): R20.0 - ANESTHESIA OF SKIN (2) Fall Code(s): W19.XXXA - UNSPECIFIED FALL, INITIAL ENCOUNTER Qualifiers: Encounter type: initial encounter Qualified Code(s): W19.XXXA - Unspecified fall, initial encounter (3) Leg swelling Code(s): M79.89 - OTHER SPECIFIED SOFT TISSUE DISORDERS (4) Venous (peripheral) insufficiency Code(s): I87.2 - VENOUS INSUFFICIENCY (CHRONIC) (PERIPHERAL) (5) Hyperglycemia Code(s): R73.9 - HYPERGLYCEMIA, UNSPECIFIED This patient is new to me today: No Emergency Visit: Yes ED Registration Date: 03/14/19 Care time: The patient presented to the Emergency Department on the above date and was hospitalized for further evaluation of their emergent condition. Critical Care patient: No - Discharge Referral Referred to [facility] No
[2019-03-17] MEDS ORDERED: PT OWN MED DRAWER 7, Y5N ONE (11:20)
--- NOTE | 2019-03-17 13:01 | PN ---
Teaching Attending Note Name of Resident: James Davis ATTENDING PHYSICIAN STATEMENT I saw and evaluated the patient. I reviewed the resident's note and discussed the case with the resident. I agree with the resident's findings and plan as documented with exceptions below. SUBJECTIVE: Patient seen and examined. no complaints, eager to go home. OBJECTIVE: Vital Signs Period Temp Pulse Resp BP Sys/Rey Pulse Ox Last 24 Hr 97.4 F-98.4 F 52-75 18-20 128-143/85-97 99-99 Intake & Output 03/14/19 03/15/19 03/16/19 03/17/19 23:59 23:59 23:59 23:59 Intake Total 490 980 900 20 Balance 490 980 900 20 Weight 158 lb 6.4 oz General: sitting in bed, no acute distress Neck: soft, supple Chest: CTAb, no rales or wheezing Abdomen: soft, NT Extremities: no edema Neuro: unchanged, no new concerns or deficits noted Home Medications Medication Instructions Recorded Aspirin [ASA -] 81 mg PO DAILY 10/30/11 Losartan Potassium 50 mg PO DAILY 05/24/18 Metformin HCl [Glucophage] 1,000 mg PO BID 05/24/18 Alendronate Sodium [Fosamax] 1 tab WEEKLY 03/04/19 Apixaban [Eliquis] 5 mg PO BID 03/04/19 Metoprolol Succinate [Toprol Xl] 25 mg PO DAILY 03/04/19 levETIRAcetam [Keppra -] 500 mg PO BID 03/05/19 Gabapentin 100 mg PO BID 03/14/19 Insulin Detemir [Levemir Flextouch] 15 unit SQ AM 03/14/19 Aspirin/Dipyridamole [Aggrenox -] 1 combo PO BID #30 capsule 03/17/19 Atorvastatin Ca [Lipitor] 40 mg PO HS #30 tab 03/17/19 Active Medications Acetaminophen (Tylenol -) 650 mg PO Q6H PRN PRN Reason: Fever Atorvastatin Calcium (Lipitor -) 40 mg PO HS [facility] Last Admin: 03/16/19 21:57 Dose: 40 mg Dipyridamole/Aspirin (Aggrenox -) 1 combo PO BID [facility] Last Admin: 03/17/19 11:21 Dose: 1 combo Gabapentin (Neurontin -) 300 mg PO BID [facility] Last Admin: 03/17/19 09:02 Dose: 300 mg Insulin Aspart (Novolog Vial Sliding Scale -) 1 vial SQ ACHS [facility]; Protocol Last Admin: 03/17/19 11:17 Dose: 8 units Insulin Detemir (Levemir Vial) 15 units SQ AM [facility] Last Admin: 03/17/19 07:04 Dose: 15 unit Levetiracetam (Keppra -) 500 mg PO BID [facility] Last Admin: 03/17/19 09:02 Dose: 500 mg Losartan Potassium (Cozaar -) 50 mg PO DAILY [facility] Last Admin: 03/17/19 09:02 Dose: 50 mg Metoprolol Succinate (Toprol Xl -) 25 mg PO DAILY [facility] Last Admin: 03/17/19 09:02 Dose: 25 mg Laboratory Results - last 24 hr 03/16/19 03/16/19 03/17/19 16:56 21:51 07:50 POC Glucometer 280 213 197 Telemetry: no events or arrhythmia ASSESSMENT AND PLAN: 78 year old female with history of HTN, HLD, DM 2 with peripheral neuropathy, Hx CVA (residual R arm weakness), Bilateral LE DVTs (on Eliquis), SD, s/p right ankle replacement, declined SNF recently, concerns for non compliance with medications, admitted with fall -Fall, patient confirms mechanical fall -Acute right parietal cortical CVA with possible subtle petechial haemorrhage/ Edema -Poorly controlled IDDM -Diabetic neuropathy -HTN -HLD -h/o CVA with right arm residual weakness -Bilateral LE DVT on eliquis -S/p Right ankle replacement Plan: Neurology input noted, discussed with neurology Dr. Wright, based on current imaging, strongly recommend anti-platelet, given stroke on ASA/eliquis, recommend transition to Aggrenox. Discussed with Dr. Serrato, agrees with the plan. LE duplex neg for DVT. Eliquis d/perfecto per above recs. Confirm with PCP. MRI brain/MRA head/neck/Speech/swallow/PT eval noted. Continue Metoprolol/losartan Insulin changed to AM dosing to address compliance. Multiple discussions have been made with patient and daughter about need for compliance and high risk for recurrent CVA, falls, trauma and . They relay understanding, patient insists on going home and agrees to comply with instructions. Discuss with daughter. dc home with services and close outpatient PCP follow up.
== END 2019-03-17 14:30 | disposition home health service (06) | DRG 64 ==
LOC: JER 22:16 → JERBED 03-14 04:01 → OBSVTOIN 03-14 05:39 → J4W 03-14 21:38
PROVIDERS: ADMIT Internal Medicine; ATTEND Hospitalist
DX: I63.9 Cerebral infarction, unspecified (principal); I61.9 Nontraumatic intracerebral hemorrhage, unspecified; I69.351 Hemiplegia and hemiparesis following cerebral infarction affecting right dominant side; E11.40 Type 2 diabetes mellitus with diabetic neuropathy, unspecified; I10 Essential (primary) hypertension; I67.1 Cerebral aneurysm, nonruptured; E78.5 Hyperlipidemia, unspecified; E11.65 Type 2 diabetes mellitus with hyperglycemia; R55 Syncope and collapse
CPT/HCPCS: 36415; 70450-TC; 70544-TC; 70547-TC; 70551-TC; 72125-TC; 73030-TC-RT-FY; 80048; 80053; 80061; 82550; 82962; 83721; 83735; 84100; 84484; 85025; 85027; 85610; 85730; 93005; 93010; 93880-TC; 93970-TC; 97116-GP; 97162-GP; 99284-25; G0378; J0131